=== PATIENT | male | born 1980 | race African-American/Black ===

== ENCOUNTER 2019-10-20 08:58 | Emergency (ER) | payer OTHER, SELFPAY ==
[2019-10-20 09:37] VITALS: BP 180/110; PULSE 70; RESP 16; TEMP 36.6; O2SAT 99
--- NOTE | 2019-10-20 09:48 | ED.MALEGU ---
HPI - Male Genitourinary General Chief complaint: Urogenital-Male Stated complaint: Skin rash Time Seen by Provider: 10/20/19 09:50 Source: patient and RN notes reviewed Mode of arrival: ambulatory Limitations: no limitations History of Present Illness HPI Narrative: 38-year-old male presents with concern for an ulcer on his penis. Reports noticing it 5 days ago. Denies penile discharge. Reports the lesion is painless. Reports he has been in a monogamous relationship for 10 years. Denies exposure to possible STDs. Patient does not currently have a primary care provider. He has a history of hypertension. He does not take his medicine for hypertension. MD Complaint: other (Penile lesion) Related Data Allergies Allergy/AdvReac Type Severity Reaction Status Date / Time No Known Allergies Allergy Unknown Verified 10/20/19 09:43 Review of Systems Review of Systems: Narrative: CONSTITUTIONAL: Denies malaise, chills, sweats, or fever. EYES: Denies visual changes GASTROINTESTINAL: Denies abdominal pain, nausea, vomiting, diarrhea GENITOURINARY: Denies dysuria or hematuria. Denies penile discharge. Reports penile ulcer. SKIN: Denies rash or itching. MUSCULOSKELETAL: Denies myalgia. NEUROLOGIC: Denies numbness, weakness, or headache. All systems reviewed & are unremarkable except as noted in HPI and below PMFSH Social History Social History Gender identity (if verbalized by the patient): Male Comments At time of signature, agree with nursing past medical, surgical, social and family history. There is no relevant family history pertinent to the presenting complaint Exam Narrative: Exam Narrative: GENERAL: Well-appearing, well-nourished, and in no acute distress. HEAD: Normocephalic EYES: PERRLA, conjunctivae clear ENT: Mucous membranes moist. NECK: Supple. CHEST: No respiratory distress. Speaks in full sentences. HEART: Regular rate and rhythm. SKIN: Warm, dry NEURO: Alert and oriented x3. PSYCH: Normal mood and affect : Penis: Yes circumcised and Yes ulceration Meatus: meatus normal Testes: Testes normal Male genitals images: 1. 2 small cankers noted. First canker is approximately 0.5 cm, the second canker is less than 0.25 cm. Both have pink wound beds, painless to palpation. Course Course Emergency Course: Patient is aware of diagnosis, understands and agrees to treatment plan. Anticipatory guidance given. Patient agrees to follow-up as directed and is aware of reasons to seek care at the emergency department. Portions of this record may have been created with voice recognition software Vital Signs Vital signs: Vital Signs Temperature 97.8 F 10/20/19 09:37 Pulse Rate 70 10/20/19 09:37 Respiratory Rate 16 10/20/19 09:37 Blood Pressure 180/110 H 10/20/19 09:37 Pulse Oximetry 99 10/20/19 09:37 Temperature 97.8 F 10/20/19 09:37 Pulse Rate 70 10/20/19 09:37 Respiratory Rate 16 10/20/19 09:37 Blood Pressure 180/110 H 10/20/19 09:37 Pulse Oximetry 99 10/20/19 09:37 Reviewed. Patient has history of hypertension MDM - Male Genitourinary MDM Narrative Medical decision making narrative: Exam findings show no acute concerns or changes; patient is non-toxic appearing and is in no distress. Patient is appropriate for outpatient treatment and follow-up. Differential Diagnosis Differential diagnosis: Likely urethritis, genital herpes simplex and other (STI) Critical Care Time Critical Care Time Critical Care Time: No Discharge Plan Discharge Clinical Impression: [place] Patient Disposition: Home, Self-Care Condition: Stable Additional Instructions: Please follow-up for comprehensive sexually transmitted infection testing with either a primary care doctor or the health department. Avoid unprotected sex until you have had comprehensive STI testing. Apply prescribed ointment twice daily and avoid touching the area to prevent bacterial skin infection. C
[2019-10-20 10:10] VITALS: BP 164/108
== END 2019-10-20 10:10 | disposition home or self-care (01) ==
PROVIDERS: Emergency Provider Nurse Practitioner
DX: A51.0 Primary genital syphilis (principal); I10 Essential (primary) hypertension
CPT/HCPCS: 99213; G0463

== ENCOUNTER 2022-10-28 11:07 | Emergency (ER) | payer OTHER, SELFPAY ==
[2022-10-28 11:19] VITALS: BP 204/134; PULSE 75; RESP 16; TEMP 36.7; O2SAT 99
--- NOTE | 2022-10-28 11:27 | ED.URI ---
HPI - URI/Sore Throat General Chief Complaint: Upper Respiratory Infection Stated Complaint: Sore Throat Time Seen by Provider: 10/28/22 11:27 Source: patient Mode of arrival: ambulatory Limitations: no limitations History of Present Illness HPI Narrative: 41-year-old male presents with complaint sore throat, fatigue, chills for 2-3 days. Denies nausea vomiting diarrhea. Patient is concerned as strep throat. Patient's blood pressure is elevated. He denies chest pain, shortness of breath. No headaches. Reports that he does not have a primary care physician. all systems reviewed and negative except as noted above. Related Data Allergies Allergy/AdvReac Type Severity Reaction Status Date / Time No Known Allergies Allergy Unknown Verified 10/28/22 11:17 Review of Systems Review of Systems: CONSTITUTIONAL: Denies fever. Reports chills, or sweats. EYES: Denies visual changes, redness, or discharge. ENT: Denies rhinorrhea, congestion . Reports sore throat. Deniesotalgia. CARDIOVASCULAR: Denies chest pain, palpitations, or edema. RESPIRATORY: Denies cough or dyspnea. GASTROINTESTINAL: Denies abdominal pain, nausea, vomiting, or diarrhea. GENITOURINARY: Denies dysuria or hematuria. SKIN: Denies rash or itching. MUSCULOSKELETAL: Denies back pain, joint pain, or myalgia. NEUROLOGIC: Denies headache, numbness, or weakness. PSYCHIATRIC: Denies anxiety or depression. All other systems reviewed are negative, except as documented in HPI. PMFSH Social History Social History Gender identity (if verbalized by the patient): Male Comments At time of signature, agree with nursing past medical, surgical, social and family history. There is no relevant family history pertinent to the presenting complaint. Exam Narrative: GENERAL: This is a well-nourished, well-developed patient, in no apparent distress. HEAD: normocephalic, atraumatic. EYES: PERRL. Sclera clear/white. Vision is grossly intact. EARS: External ears normal, auditory canals clear and without drainage, TMs normal without perforation. Hearing grossly intact. NOSE: External nose normal with no obvious nasal discharge, nares without redness, no rhinorrhea. THROAT: Mucous membranes moist, erythema and swelling posterior pharynx without exudates. NECK: Neck supple, non-tender without lymphadenopathy, masses or thyromegaly. CARDIOVASCULAR: Regular rate and rhythm without murmurs, gallops, or rubs. RESPIRATORY: Clear to auscultation. Breath sounds equal bilaterally. No wheezes, rales, or rhonchi. SKIN: warm, Dry, intact with no suspicious lesions or rash, good texture and turgor. NEURO: awake, alert, and oriented to person, place and time. There were no obvious focal neurologic abnormalities. EXTREMITIES: No joint tenderness, effusion, or edema noted. Course Course Level of Care: Express Care Visit Vital Signs Vital signs: Vital Signs Temperature 36.7 C 10/28/22 11:19 Pulse Rate 75 10/28/22 11:19 Respiratory Rate 16 10/28/22 11:19 Blood Pressure 204/134 H 10/28/22 11:19 Pulse Oximetry 99 10/28/22 11:19 Oxygen Delivery Room Air 10/28/22 11:19 Temperature 36.7 C 10/28/22 11:19 Pulse Rate 75 10/28/22 11:19 Respiratory Rate 16 10/28/22 11:19 Blood Pressure 204/134 H 10/28/22 11:19 Pulse Oximetry 99 10/28/22 11:19 Oxygen Delivery Room Air 10/28/22 11:19 Reviewed MDM - URI/Sore Throat MDM Narrative Medical decision making narrative: patient's blood pressure elevated. Would like him to go to ER for labs and further treatment. He is refusing transfer. He does not your care physician. due to patient being in the 200 systolic his medications today to treat blood pressure. referred to a primary care physician and recommend that he call today to schedule a follow-up appointment. Patient is aware of diagnosis, understands and agrees to treatment plan. Anticipatory guidance given. Patient agrees to follow-up as dir
== END 2022-10-28 11:58 | disposition left against medical advice (07) ==
PROVIDERS: Emergency Provider Nurse Practitioner Family
DX: J02.0 Streptococcal pharyngitis (principal); I10 Essential (primary) hypertension
CPT/HCPCS: 87880; 99213; G0463

== ENCOUNTER 2022-10-30 08:23 | Emergency (ER) | payer OTHER, SELFPAY ==
[2022-10-30 08:34] VITALS: PULSE 81; RESP 18; O2SAT 97
[2022-10-30 08:35] VITALS: BP 208/128; PULSE 70; RESP 18; TEMP 36.6; O2SAT 100
--- NOTE | 2022-10-30 08:55 | ED.GENADULT ---
HPI - General Adult General Chief complaint: Unspecified Stated complaint: not sleeping Time Seen by Provider: 10/30/22 08:25 History of Present Illness HPI narrative: Patient is a 41-year-old male who presents ER with difficulty sleeping. He was diagnosed with strep throat a couple days ago. He has been on antibiotics but when he lays back he feels like he is gagging and has trouble sleeping. He reports his sore throat has improved and he is having less discomfort with eating and drinking. He is tolerating oral secretions. He is not short of breath. Patient also recently diagnosed with hypertension. No chest pain or chest pressure. He has not taken his antihypertensives today. Related Data Allergies Allergy/AdvReac Type Severity Reaction Status Date / Time No Known Allergies Allergy Unknown Verified 10/28/22 11:17 Review of Systems Review of Systems: All systems reviewed & are unremarkable except as noted in HPI and below Constitutional: Constitutional: Denies chills and Denies fever(s) ENT: Denies hoarseness, Denies nasal congestion, Denies neck pain and Reports sore throat PMFSH Past Medical History Medical History (Updated 10/30/22 @ 17:32 by Checo Ellington MD) Hypertension Social History Social History Gender identity (if verbalized by the patient): Male Exam Narrative: GENERAL: Well-appearing, well-nourished, and in no acute distress. HEAD: Normocephalic, atraumatic. EYES: PERRL and EOMI. ENT: Mucous membranes moist. Mild pharyngeal erythema. Slight redness to tonsils as well without exudate. Uvula midline and edematous. 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 Tolerating oral secretions. No hot potato voice. NECK: Supple. Painless range of motion. CHEST: Clear to auscultation. No respiratory distress. HEART: Regular rate and rhythm. Normal peripheral pulses. EXTREMITIES: Normal range of motion. No edema. NEURO: Alert and oriented x3. PSYCH: Normal mood and affect. Course Course Emergency Course: Patient with elevated blood pressures in the 180s. He has not taken his amlodipine today. Discussed long-term benefits of antihypertensive therapy. Also encourage patient to establish care with PCP to manage his blood pressure. He is received Decadron for the uvulitis which should help. He also be sent home with some Tylenol with guarding liquid medication to help with pain and sleep. Vital Signs Vital signs: Vital Signs Pulse Rate 81 10/30/22 08:34 Respiratory Rate 18 10/30/22 08:34 Pulse Oximetry 97 10/30/22 08:34 Oxygen Delivery Room Air 10/30/22 08:34 Temperature 97.9 F 10/30/22 08:35 Pulse Rate 72 10/30/22 10:03 Respiratory Rate 16 10/30/22 10:03 Blood Pressure 205/129 H 10/30/22 10:03 Pulse Oximetry 97 10/30/22 10:03 Oxygen Delivery Room Air 10/30/22 08:34 Medical Decision Making Vital Signs Vital Signs: Vital Signs Pulse Rate 81 10/30/22 08:34 Respiratory Rate 18 10/30/22 08:34 Pulse Oximetry 97 10/30/22 08:34 Oxygen Delivery Room Air 10/30/22 08:34 Temperature 97.9 F 10/30/22 08:35 Pulse Rate 72 10/30/22 10:03 Respiratory Rate 16 10/30/22 10:03 Blood Pressure 205/129 H 10/30/22 10:03 Pulse Oximetry 97 10/30/22 10:03 Oxygen Delivery Room Air 10/30/22 08:34 Discharge Plan Discharge Clinical Impression: Uvulitis, Hypertension Patient Disposition: Home, Self-Care Condition: Stable Instructions: Chronic Hypertension (ED), Uvulitis (ED) Additional Instructions: Return the ER if you have chest pain or shortness of breath, you cannot keep down food or water, you have focal weakness in arm or leg, you have additional concerns. You need to establish care with a primary care doctor to help manage her hypertension long-term. Continue to take your amlodipine daily. Prescriptions: New acetaminophen-codeine 120-12 mg/5 mL solution 5 ml PO Q8H Qty: 118 0RF acetaminophen-codeine
--- NOTE | 2022-10-30 08:57 | PC.NURSE ---
Dr. Coates notified of BP. Pt has hx of elevated bp, pt taking amlodipine since Wednesday for BP
[2022-10-30 10:03] VITALS: BP 205/129; PULSE 72; RESP 16; O2SAT 97
== END 2022-10-30 10:06 | disposition home or self-care (01) ==
PROVIDERS: Emergency Provider Emergency Medicine
DX: K12.2 Cellulitis and abscess of mouth (principal); I10 Essential (primary) hypertension
CPT/HCPCS: 99283; J8540

== ENCOUNTER 2023-05-26 23:57 | Emergency (ER) | payer OTHER, SELFPAY ==
--- NOTE | ~2023-05-26 | US_ITS ---
EXAMINATION: US scrotum doppler DATE: 05/27/2023 02:50 INDICATION: Scrotal pain. TECHNIQUE: Grayscale and Doppler ultrasound images of the testes were obtained. COMPARISON: None. FINDINGS: The right testis measures 4.1 x 2.2 x 3.4 cm. The left testis measures 4.2 x 2.3 x 3.0 cm. There is normal vascular flow to both testes. The right epididymis is normal with normal vascular lc w. The left epididymis is normal with normal vascular flow. There are bilateral varicoceles. There ar e small bilateral hydroceles. IMPRESSION: 1. Small bilateral hydroceles. 2. Bilateral varicoceles. Reviewed, dictated and finalized at location E.
--- NOTE | ~2023-05-26 | CT_ITS ---
EXAMINATION: CT abdomen pelvis wo con DATE: 05/27/2023 01:32 INDICATION: Scrotal pain. TECHNIQUE: Computed tomography (CT) of the abdomen and pelvis was performed without intravenous contr ast. Automated exposure control and iterative reconstruction technique were employed. The dose-length product was 1111.70 mGy-cm. COMPARISON: None. FINDINGS: The visualized portions of the lung bases are clear without pneumonia or pleural effusion. The heart size is normal. No pericardial effusion. The liver, gallbladder, spleen, and pancreas are n ormal. There are masses in the adrenal glands measuring up to 16 mm on the left measuring low attenua tion, consistent with adenomas. The kidneys are normal. There is no urolithiasis. The prostate is mil dly enlarged. There are no dilated loops of bowel. The appendix is normal. There are no pathologicall y enlarged lymph nodes. There is no free intraperitoneal fluid. There is an umbilical hernia containi ng fat. There is mild lumbar spondylosis. IMPRESSION: 1. No urolithiasis. 2. Mildly enlarged prostate. Reviewed, dictated and finalized at location E.
[2023-05-27 00:03] VITALS: PULSE 96; RESP 16; TEMP 36.5; O2SAT 100
--- NOTE | 2023-05-27 01:18 | ED.MALEGU ---
HPI - Male Genitourinary General Chief complaint: Urogenital-Male Stated complaint: Bilateral testicle pain Time Seen by Provider: 05/27/23 01:03 Source: patient Limitations: no limitations History of Present Illness HPI Narrative: Patient is a 42-year-old male present to the emergency department complaining of scrotal pain. Patient states that the pain started gradually yesterday morning just after he was working out and has been aching ever since, is worse with eating or working out, notes that he took an Advil without any relief, denies radiation of the pain, notes that the pain is not in any 1 testicle over the other where there is seems to be right in the middle, denies any history this pain in the past. Patient admits to urinary frequency for a couple months. Patient denies dysuria, penile discharge, scrotal swelling, fever, vomiting, diarrhea, constipation, abdominal pain, chest pain, shortness of breath, recent injuries, recent illness. Patient has not noticed any bulging intermittently and denies history of inguinal hernia but does admit to history of an abdominal wall hernia. Patient admits to new sexual partners with intermittent use of protection and denies any history of sexual transmitted infections and is unaware if he has been exposed a sexual transmitted infections Related Data Allergies Allergy/AdvReac Type Severity Reaction Status Date / Time No Known Allergies Allergy Unknown Verified 10/28/22 11:17 Review of Systems Review of Systems: A 10 system review of systems was completed on the patient and is negative except for what is stated in the HPI. Nursing and ancillary documentation was reviewed. [facility] Past Medical History Medical History (Updated 05/28/23 @ 00:00 by Idania Dagee) Hypertension Social History Social History Gender identity (if verbalized by the patient): Male Comments At time of signature, I have reviewed and agree with nursing past medical, surgical, social and family history unless otherwise noted. Please see the nursing chart for further information. There is no relevant family history pertinent to the presenting complaint. Exam Narrative: CONST: No acute distress. Well nourished. HENMT: Head is normocephalic and atraumatic. Moist mucous membranes. No posterior oropharynx erythema. EYES: No conjunctival icterus, injection, or pallor. PERRL. NECK: No meningeal signs. RESP: Able to speak in full sentences. Normal respiratory effort. CTAB. CARDIO: Regular rate. Regular rhythm. 2+ DP and radial pulses bilaterally. GI: Nondistended. No tenderness to palpation. Soft. : No CVA tenderness to palpation. Digital rectal examination reveals mild tenderness to palpation of the prostate, no fluctuance, no palpable hemorrhoids. No palpable inguinal hernia. SKIN: No rashes or lesions noted on exposed skin. NEURO: Oriented x3. Moves all extremities. EXTREM: No pedal edema. PSYCH: Normal affect. : Penis: Yes normal penis, Yes circumcised, No ecchymosis, No edematous, No erythematous, No mass, No nodule, No priapism, No Localized penile swelling present, No ulceration and No Genital lesions present Meatus: meatus normal Scrotum: cremasteric reflex present, no ecchymosis, not edematous, not erythematous, testes descended bilaterally, no inguinal hernias and no masses Testes: testicular lie normal, epididymides normal, no epidiymal tenderness, no testicular mass, no testicular swelling, no testicular tenderness and normal testicular lie Course Vital Signs Vital signs: Vital Signs Temperature 97.7 F 05/27/23 00:03 Pulse Rate 96 05/27/23 00:03 Respiratory Rate 16 05/27/23 00:03 Pulse Oximetry 100 05/27/23 00:03 Oxygen Delivery Room Air 05/27/23 00:03 Temperature 97.7 F 05/27/23 00:03 Pulse Rate 96 05/27/23 00:03 Respiratory Rate 16 05/27/23 00:03 Pulse Oximetry 100 05/27/23 00:03 Oxygen Delivery Room Air 05/27/23 00:03 [facility] -
[2023-05-27] MEDS: ACETAMINOPHEN 500 MG TABLET 1000 MG PO (01:34)
[2023-05-27 02:18] LABS: Appearance Urine Cloudy (Clear); Bacteria Urine None Seen /hpf; Bilirubin Urine Negative (Negative); Blood Urine Negative (Negative); Color Urine Yellow (Yellow); Glucose Urine UA Negative (Negative); Ketones Urine Negative (Negative); Leukocyte Esterase Ur Negative LEU/UL (Negative); Nitrate Urine Negative (Negative); Non Pathogenic Casts 0-2; Protein Urine Trace mg/dL (Negative); RBC Urine 0-2 /hpf (0-2); Specific Grav Ur 1.015 (1.001-1.035); Squamous Epithelial Cell Urine None seen /hpf (Few); Urobilinogen Urine 0.2 mg/dL (<2.0); WBC Urine 0-5 /hpf
[2023-05-27 02:26] LABS: Add Urine Microscopic? YES
[2023-05-27 03:53] LABS: Chlamydia trachomatis NOT DETECTED (NOT DETECTE); Neisseria gonorrhoeae PCR NOT DETECTED (NOT DETECTE)
[2023-05-27] MEDS: DOXYCYCLINE HYCLATE 100 MG TABLET PO (04:30)
[2023-05-27] MEDS: cefTRIAXone 1 GM VIAL 0.5 GM IM (04:31)
== END 2023-05-27 04:39 | disposition home or self-care (01) ==
PROVIDERS: Emergency Provider Student in an Organized Health Care Education/Training Program
DX: N41.9 Inflammatory disease of prostate, unspecified (principal); I10 Essential (primary) hypertension; N40.0 Benign prostatic hyperplasia without lower urinary tract symptoms; I86.1 Scrotal varices; N43.3 Hydrocele, unspecified
CPT/HCPCS: 74176; 76870; 81001; 87491; 87591; 93976; 96372; 99284; A9270; J0696

== ENCOUNTER 2023-12-15 18:05 | Emergency (ER) | payer OTHER, SELFPAY ==
--- NOTE | ~2023-12-15 | XR_ITS ---
EXAMINATION: XR chest 2V DATE: 12/15/2023 18:29 INDICATION: Cough. Fatigue. TECHNIQUE: Frontal and lateral views of the chest were obtained. COMPARISON: CT abdomen and pelvis 05/27/2023 FINDINGS: There are airspace opacities in left upper lobe, consistent with pneumonia. No pleural effu deng or pneumothorax. The heart size is normal. IMPRESSION: 1. Left upper lobe pneumonia. Reviewed, dictated and finalized at location E.
[2023-12-15 18:06] VITALS: BP 219/123; PULSE 114; RESP 18; TEMP 36.7; O2SAT 97
[2023-12-15] MEDS: SODIUM CHLORIDE 0.9% IV 1,000 ML 999 ML IV CONT (18:42)
[2023-12-15] MEDS: ACETAMINOPHEN 500 MG TABLET 1000 MG PO (18:42)
--- NOTE | 2023-12-15 18:48 | ED.FEVER ---
HPI - Fever General Chief Complaint: Fever Stated Complaint: chills fever headache Time Seen by Provider: 12/15/23 18:14 History of Present Illness HPI Narrative: Patient is a 42-year-old male who presents ER with fevers and chills. Ongoing over last 2 days. Associated with cough that is nonproductive. Has some upper tightness to the chest. Reports people have been sick around him at work but is unsure if anybody has flu or COVID. No urinary symptoms. No abdominal pain. No exertional chest discomfort. Related Data Allergies Allergy/AdvReac Type Severity Reaction Status Date / Time No Known Allergies Allergy Unknown Verified 10/28/22 11:17 Review of Systems Review of Systems: All systems reviewed & are unremarkable except as noted in HPI and below Constitutional: Constitutional: Reports chills, Reports fatigue and Reports fever(s) ENT: Reports system reviewed and no additional complaints, except as documented Cardiovascular: Cardiovascular: Reports no additional cardiovascular complaints Respiratory: Respiratory: Denies chest congestion, Reports cough, Denies dyspnea and Denies wheezing Gastrointestinal: Gastrointestinal: Reports no additional gastrointestinal complaints Genitourinary: Genitourinary: Reports no additional male genitourinary complaints [facility] Past Medical History Medical History (Updated 12/15/23 @ 20:10 by Checo Ellington MD) Hypertension Social History Social History Gender identity (if verbalized by the patient): Male Exam Narrative: GENERAL: Well-appearing, well-nourished, and in no acute distress. HEAD: Normocephalic, atraumatic. ENT: Mucous membranes moist. NECK: Supple. CHEST: Clear to auscultation. No respiratory distress. HEART: Tachycardic and regular. Normal peripheral pulses. ABDOMEN: Soft, nontender, nondistended. EXTREMITIES: Normal range of motion. No edema. SKIN: Warm, dry, no rash. NEURO: Alert and oriented x3. PSYCH: Normal mood and affect. 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 Informed of results. Discharge home with antibiotics to treat pneumonia. No hypoxia. No white count. Patient with elevated blood pressures which are chronic for him. Vital Signs Vital signs: Vital Signs Temperature 98.1 F 12/15/23 18:06 Pulse Rate 114 H 12/15/23 18:06 Respiratory Rate 18 12/15/23 18:06 Blood Pressure 219/123 H 12/15/23 18:06 Pulse Oximetry 97 12/15/23 18:06 Oxygen Delivery Room Air 12/15/23 18:06 Temperature 98.1 F 12/15/23 18:06 Pulse Rate 114 H 12/15/23 18:06 Respiratory Rate 18 12/15/23 18:06 Blood Pressure 219/123 H 12/15/23 18:06 Pulse Oximetry 97 12/15/23 18:06 Oxygen Delivery Room Air 12/15/23 18:06 MDM - Fever Lab Data 12/15/23 18:49 12/15/23 18:50 Labs: Lab Results 12/15/23 12/15/23 Range/Units 18:49 18:50 WBC 6.7 (4.5-10.0) K/mm3 RBC 5.41 (4.6-6.20) M/mm3 Hgb 15.4 (14.0-18.0) g/dL Hct 44.8 (42.0-52.0) % MCV 82.8 (80-100) fl MCH 28.5 (26-34) pg MCHC 34.4 (32-36) g/dl RDW 13.2 (11.5-14.5) % Plt Count 118 L (150-375) k/mm3 MPV 12.1 H (7.4-10.4) fl Immature Gran % (Auto) 0.1 (0-0.5) % Neut % (Auto) 74.2 H (45.5-73.1) % Lymph % (Auto) 13.1 L (18.3-44.2) % [place] % (Auto) 12.0 H (2.6-8.5) % Eos % (Auto) 0.3 (0-4.4) % Baso % (Auto) 0.3 (0.2-1.2) % Lymph # (Auto) 0.88 L (0.9-3.2) K/mm3 [place] # (Auto) 0.8 H (0.1-0.6) K/mm3 Eos # (Auto) 0.0 (0-0.3) K/mm3 Baso # (Auto) 0.0 (0.0-0.1) K/mm3 Abs Immat Gran (auto) 0.01 (0.00-0.031) K/mm3 Absolute Neuts (auto) 5.0 (1.3-6.7) K/mm3 Absolute Nucleated RBC 0.000 (0.0-0.012) K/mm3 Nucleated RBC % 0.0 (0.0-0.2) % % Immature Plt Fraction 12.9 H (0.9-11.2) % Sodium 135 L (137-145) mmol/L Potassium 4.1 (3.4-5.0) mmol/L Chloride 102 (98-107) mmol/L Carbon Dioxide 27 (22-30) mmol/L
[2023-12-15 19:03] LABS: Basophils Percent Auto 0.3 % (0.2-1.2); Eosinophils Percent Auto 0.3 % (0-4.4); Hematocrit 44.8 % (42.0-52.0); Hemoglobin 15.4 g/dL (14.0-18.0); Immature Granulocyte Absolute 0.01 K/mm3 (0.00-0.031); Immature Granulocyte Percent A 0.1 % (0-0.5); Immature Platelet Fraction Pct 12.9 % (0.9-11.2); Lymphocytes Absolute Auto 0.88 K/mm3 (0.9-3.2); Lymphocytes Percent Auto 13.1 % (18.3-44.2); Mean Corpuscular HGB Conc 34.4 g/dl (32-36); Mean Corpuscular Hemoglobin 28.5 pg (26-34); Mean Corpuscular Volume 82.8 fl (80-100); Mean Platelet Volume 12.1 fl (7.4-10.4); Monocytes Absolute Auto 0.8 K/mm3 (0.1-0.6); Neutrophils Percent Auto 74.2 % (45.5-73.1); Platelet Count Result 118 k/mm3 (150-375); Red Blood Count 5.41 M/mm3 (4.6-6.20); Red Cell Distribution Width 13.2 % (11.5-14.5); White Blood Count 6.7 K/mm3 (4.5-10.0)
[2023-12-15 19:14] LABS: Lactic Acid Reflex 0.7 mmol/L (0.7-2.0)
[2023-12-15 19:14] LABS: Alanine Aminotransferase 26 U/L (6-50); Albumin Level 4.3 g/dL (3.5-5.1); Alkaline Phosphatase 66 U/L (38-126); Anion Gap 6 mmol/L (4-12); Aspartate Amino Transferase 29 U/L (17-59); Bilirubin,Total 0.6 mg/dL (0.2-1.3); Blood Urea Nitrogen 20 mg/dL (9-20); Calcium 8.8 mg/dL (8.4-10.2); Carbon Dioxide 27 mmol/L (22-30); Chloride 102 mmol/L (98-107); Estimated CRCL calculation 62 ml/min; Estimated Glomerular Filt Rate 58; Glucose 99 mg/dL (65-110); Potassium 4.1 mmol/L (3.4-5.0); Sodium 135 mmol/L (137-145)
[2023-12-15 19:42] LABS: Influenza A QL RT-PCR Negative (Negative); Influenza B QL RT-PCR Negative (Negative); RSV RNA, RT-PCR Negative (Negative); SARS-CoV-2 RNA PCR Negative (Negative)
[2023-12-15 20:15] VITALS: BP 192/129; PULSE 104; RESP 18; O2SAT 100
== END 2023-12-15 20:30 | disposition home or self-care (01) ==
PROVIDERS: Emergency Provider Emergency Medicine
DX: J18.9 Pneumonia, unspecified organism (principal); I10 Essential (primary) hypertension; Z20.822 Contact with and (suspected) exposure to COVID-19
CPT/HCPCS: 36415; 71046; 80053; 83605; 85025; 85055; 87637; 96360; 99283; A9270; J7030

== ENCOUNTER 2024-04-03 13:02 | Emergency (ER) | payer OTHER, SELFPAY ==
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
[2024-04-03 13:07] VITALS: BP 195/152; PULSE 86; RESP 14; TEMP 36.3; O2SAT 100
[2024-04-03 15:11] VITALS: BP 219/139; PULSE 69; O2SAT 99
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
== END 2024-04-03 16:00 | disposition home or self-care (01) ==
PROVIDERS: Emergency Provider Emergency Medicine
DX: S02.2XXA Fracture of nasal bones, initial encounter for closed fracture (principal); S02.31XA Fracture of orbital floor, right side, initial encounter for closed fracture; Y04.2XXA Assault by strike against or bumped into by another person, initial encounter; I10 Essential (primary) hypertension; Z91.148 Patient's other noncompliance with medication regimen for other reason
CPT/HCPCS: 70486; 99284

== ENCOUNTER 2024-05-01 06:49 | Emergency (ER) | payer OTHER, SELFPAY ==
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
[2024-05-01 06:50] VITALS: PULSE 105; RESP 18; TEMP 36.6; O2SAT 99
[2024-05-01 06:55] VITALS: BP 126/114; PULSE 95; RESP 18; O2SAT 96
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
[2024-05-01] MEDS: TETANUS,DIPHTHERIA,AC PERTUSSIS ADULT (0.5 ML) BOOSTRIX IM (07:25)
[2024-05-01 08:32] VITALS: BP 200/116; PULSE 94; RESP 18; O2SAT 100
== END 2024-05-01 08:34 | disposition home or self-care (01) ==
PROVIDERS: Emergency Provider Emergency Medicine
DX: S50.812A Abrasion of left forearm, initial encounter (principal); Z23 Encounter for immunization; I10 Essential (primary) hypertension; T46.5X6A Underdosing of other antihypertensive drugs, initial encounter; Z91.128 Patient's intentional underdosing of medication regimen for other reason; V49.40XA Driver injured in collision with unspecified motor vehicles in traffic accident, initial encounter
CPT/HCPCS: 73090; 90471; 90715; 99283

== ENCOUNTER 2024-05-20 14:47 | Outpatient (CLI) | payer OTHER, SELFPAY ==
--- NOTE | 2024-05-20 14:52 | ECG_ITS ---
Test Date: 2024-05-20 15:01:45 Measurements Intervals [place] Rate: 81 P: 62 [place]: 150 QRS: 26 QRSD: 93 T: 174 QT: 400 QTc: 464 Interpretive Statements SINUS RHYTHM POSSIBLE LEFT ATRIAL ENLARGEMENT [-0.1mV P WAVE IN V1/V2] LEFT VENTRICULAR HYPERTROPHY AND ST-T CHANGE [VOLTAGE CRITERIA PLUS ST/T ABNORMALITY] ABNORMAL ECG No previous ECG available for comparison Electronically Signed On 05-21-2024 08:54:46 CDT by Ramiro Robertson M.D.
== END 2024-05-20 14:48 | disposition home or self-care (01) ==
LOC: ANHCARD 14:48
PROVIDERS: Visit Provider Anesthesiology
DX: I10 Essential (primary) hypertension (principal); Z01.818 Encounter for other preprocedural examination; R94.31 Abnormal electrocardiogram [ECG] [EKG]
CPT/HCPCS: 93005

== ENCOUNTER 2024-05-22 01:39 | Day surgery (SDC) | payer OTHER, SELFPAY ==
[2024-05-17 09:49] VITALS: BMI 32.7
--- NOTE | 2024-05-17 09:55 | PC.NURSE ---
Report to the Outpatient Waiting Room, entrance under the green pavilion located off [facility], at time _0600_ on date _[id number]_. Planned Procedure Time: _0730_.? Time changes happen often and if your time is changed the preop area will call you the afternoon before. - You and your visitor will be asked to self-screen and do not enter if you have any COVID symptoms. Please call surgeon if you need to reschedule. - A mask is optional within the hospital at this time. Patients may have clear liquids (water, carbonated beverages, clear teas, apple juice) until 3 hours prior to surgery with a maximum of 20 ounces. - No food from midnight until time of surgery and no smoking Take only the following medications with a SIP of water on the morning of surgery____Amlodipine DO NOT STOP ANY OF YOUR OTHER PRESCRIPTION MEDICATIONS PRIOR TO SURGERY EXCEPT THE FOLLOWING Medications to discontinue per physician ___none Please no make-up, nail samoan, hairspray, perfume, deodorant, or body powder the day of surgery.? No jewelry (including any body piercings) or valuables the day of surgery, leave them at home.? Please take a shower or bath the night before, or the morning of, surgery with an antibacterial soap.? Wear comfortable, loose fitting clothing.? - Jewelry must be removed prior to entering the operating room.? Rings and piercings that are not removed may be cut off. - The hospital will not accept responsibility for valuables.? - Please leave all valuables, including medications, at home the day of surgery. If you are going home after surgery, a licensed driver education road instructor must drive you home.? - NO public transportation without another adult if you receive anesthesia. - We recommend that an adult stay with you for 24 hours following discharge. - We also recommend that you do not drive, make important decision, drink alcoholic beverages, or take any drugs that were not prescribed by your health care provider for at least 24 hours after your discharge time. Follow any additional instructions given to you from your surgeon. Telephone instructions given to __William___and asked if any additional questions and then verbalized understanding. Patient advised to call surgeon office or pre surgery nurse liaison [phone] if any additional questions.
[2024-05-22] VITALS (9 sets, daily range): BP systolic 141–220; BP diastolic 89–148; PULSE 58–93; RESP 16–20; TEMP 36.3; O2SAT 95–100
[2024-05-22] MEDS: ACETAMINOPHEN 500 MG TABLET 1000 MG PO (06:21)
[2024-05-22] MEDS: LACTATED RINGERS 1,000 ML 30 ML IV CONT (06:39)
--- NOTE | 2024-05-22 06:41 | WPDANESEPPF ---
Anes - Initial Pre Proc Eval Procedure: Operation Date: 05/22/24 07:30 Proposed Procedures p Septoplasty - Jai Love MD s Bilateral Turbinate Reduction - Jai Love MD Date/Time: 05/22/24 06:41 Surgeon: Jai Love MD Pre Op Diagnosis: Dev Septum, Turbinate Hypertrophy Patient Data Age: 43 Gender: M Height: 1.73 m Weight: 97.7 kg Allergies Allergy/AdvReac Type Severity Reaction Status Date / Time No Known Allergies Allergy Unknown Verified 05/22/24 06:05 Home Medications Medication Instructions Recorded Confirmed Type amlodipine 5 mg tablet (Norvasc) 5 mg PO DAILY #30 tabs 10/28/22 05/22/24 Rx Patient hx anesthesia problems: none Family hx anesthesia problems: none Results Review: All pre-operative results and documents have been reviewed as part of the pre-operative evaluation. [facility] Past Medical History Medical History (Updated 05/22/24 @ 06:42 by Sridhar Hameed MD) Hypertension Obesity Social History Social History Smoking status: Never smoker Alcohol intake: current Drinks per week: 5 Living arrangements: with family Gender identity (if verbalized by the patient): Male Spiritual care concerns: No Anes - Eval Final PreProcedure Day of Procedure 05/22/24 06:41 Patient weight: obese Heart: regular rate and rhythm Lungs: clear to auscultation Airway: Mallampati scale class II Neurological: alert and oriented Last oral intake: >/= 8 hours ASA classification: III Emergent: no Anesthetic plan: proceed Anesthesia type and monitoring: general ETT and standard monitoring Results Review: All pre-operative results and documents have been reviewed as part of the pre-operative evaluation. Informed Consent: The patient's anesthetic plan and its attendant risks and benefits were discussed with the patient/family/POA. Questions were solicited and answers provided to the satisfaction of the patient/family/POA.
[2024-05-22] MEDS: hydrALAZINE HCL 20 MG/ML VIAL 10 MG IV PUSH (06:51)
--- NOTE | 2024-05-22 07:05 | SUR.PREOP ---
0650- SPOKE WITH DR. ZAPIEN ABOUT PT ELEVATED BP- 220/148. DR. ZAPIEN ORDERED HYDRALAZINE 10 MG IVP NOW. 0705- PT BP STILL ELEVATED [id number]. DR. ZAPIEN UPDATED AND HE ORDERED LABETALOL IVP.
[2024-05-22] MEDS: LABETALOL HCL INJ 100 MG/20 ML VIAL 10 MG IV PUSH (07:08)
--- NOTE | 2024-05-22 07:10 | WPDHPUPDATE1 ---
History and Physical Update Update Date/Time: 05/22/24 07:10 History and Physical has been reviewed, including an updated exam of the patient. There are NO changes in the patient's condition. Risks, benefits, and alternatives have been discussed and questions answered. Patient agrees to proceed with procedure.
[2024-05-22] MEDS: ceFAZolin 2 GM/D5W 50 ML 2 GM/50 ML BAG IVPB (07:28)
[2024-05-22] MEDS: LIDO 1%/EPINEPHRINE 1:100,000 20 ML VIAL 10 ML INFILTRATE (07:55)
[2024-05-22] MEDS: OXYMETAZOLINE HCL 0.05% NAS 15 ML BTL (*BKC) 1 SPRAY NASAL (07:56)
[2024-05-22] MEDS: MUPIROCIN 2% OINT 22 GM TUBE 1 APPLIC EACH NARE (08:08)
--- NOTE | 2024-05-22 08:15 | P.OP_ITS ---
Procedure Note - Detailed Date of Procedure 05/22/24 Pre-op Diagnosis Dev Septum, Turbinate Hypertrophy Post-op Diagnosis Same Procedure Performed septoplasty, bilateral inferior turbinoplasty Surgeon Jai Love MD Anesthesia General Indications left deviated septum Findings left deviated septum Description of Procedure After obtaining informed consent and proper site verification the patient was brought to the operating room and placed on the operating table in the supine position. They were placed under general endotracheal anesthesia by the anesthesia provider. The patient was then draped in standard fashion for septoplasty and turbinoplasty. A timeout was performed and the correct patient and procedure were verified. The nasal cavity was injected with 1% lidocaine with 1-100,000 epinephrine and packed with afrin-soaked cottonoid pledgets. ? Attention was then directed to the nasal septum. A hemitransfixion incision was made in the left caudal septum and a mucoperichondrial flap was elevated in the usual fashion. The flap was elevated under endoscopic visualization and the remainder of the case was performed with endoscopic assistance. Using a D- knife, an incision was made through the cartilaginous septum with care to preserve the appropriate caudal and dorsal ?L-strut? of cartilage. The cartilage was then disarticulated from the bony-cartilaginous junction and the deviated cartilage was removed. Further deviated bone and cartilage was removed from the maxillary crest and posterior bony septum with care to avoid injury to the mucoperichondrial flap using a combination of dissection and Herbert- Leena forceps. Once this was completed, the hemitransfixion incision was closed using simple interrupted 4-0 chromic suture. A quilting stitch to reapproximate the mucoperichondrial flaps was then placed using 4-0 plain gut suture on a Jace needle. ? Next attention was directed to the turbinates. Using a 0? telescope and 2mm turbinate blade microdebrider, a stab incision was made in the anterior face of the turbinate and dissection was carried posterior to perform submucosal resection. Next the turbinate was outfractured using a blunt instrument. A similar procedure was then performed on the right-hand side without difficulty. Aguila splints covered in mupirocin ointment were placed in the nasal cavity and secured to the membranous septum using a 3-0 Prolene suture. ?The patient was awakened from general anesthesia extubated in the operating room, and transported to the recovery room in stable condition without complication. Estimated Blood Loss 10 Drains No Packing Yes (aguila splints) Pathology None sent Complications No immediate complications Condition Stable Disposition PACU
[2024-05-22] MEDS: fentaNYL CITRATE INJ (*CRX) 100 MCG/2 ML VIAL 25 MCG IV PUSH (09:19)
== END 2024-05-22 10:03 | disposition home or self-care (01) ==
PROVIDERS: Visit Provider Otolaryngology
PROC: (CPT 30520; principal; 2024-05-22 07:30)
PROC: (CPT 30520; 2024-05-22 07:30)
DX: J34.2 Deviated nasal septum (principal); J34.3 Hypertrophy of nasal turbinates; I10 Essential (primary) hypertension; E66.9 Obesity, unspecified; Z68.33 Body mass index [BMI] 33.0-33.9, adult
CPT/HCPCS: 30520; 30140; 93005; A9270; J0360; J0690; J1100; J1171; J2003; J2004; J2250; J2704; J3010; J7120

== ENCOUNTER 2025-05-11 15:14 | Emergency (ER) | payer BC, SELFPAY ==
[2025-05-11] VITALS (13 sets, daily range): BP systolic 155–191; BP diastolic 89–112; PULSE 82–103; RESP 18–24; TEMP 37.4; O2SAT 92–99
--- NOTE | ~2025-05-11 | XR_ITS ---
EXAMINATION: XR chest 1V portable COMPARISON: No comparisons available. HISTORY: Possible seizure; cva FINDINGS: The lungs are clear, no effusion. No pneumothorax. Heart is normal size. Mediastinal and hilar contours are within normal limits. Bony thorax no acute abnormality. Miscellaneous: None Impression: No acute cardiopulmonary abnormality. Reviewed, dictated and finalized at location P. Impression: No acute cardiopulmonary abnormality.
--- NOTE | ~2025-05-11 | XR_ITS ---
EXAMINATION: XR chest ET placement COMPARISON: No comparisons available. HISTORY: ET PLACEMENT FINDINGS: Mild pulmonary venous congestion. No pneumothorax. Mild cardiomegaly. Mediastinal and hilar contours are within normal limits. Bony thorax no acute abnormality. Miscellaneous: DANIS 3 cm of the magdiel, nasogastric tube below the diaphragm. Impression: Intubation as above. Mild CHF Reviewed, dictated and finalized at location P. Impression: Intubation as above. Mild CHF
--- NOTE | ~2025-05-11 | CT_ITS ---
EXAMINATION: CT brain wo con COMPARISON: None HISTORY: possible seizure TECHNIQUE: Axial images were obtained through the brain without IV contrast. CT scan performed using dose optimization techniques including the following automated exposure control; adjustment of mA and/or kV; use of iterative reconstruction technique. Automatic exposure control was used to reduce radiation dose. Permanent radiation dose record is archived to PACS. FINDINGS: There is a large focus of parenchymal hemorrhage within the left frontal lobe measuring 5.1 x 5 cm with surrounding vasogenic edema and extension into the left frontal horn and ventricular system. There is mass effect upon the left frontal horn with midline shift to the right measuring 2 mm.. Mastoid air cells unremarkable. Sinuses and orbits unremarkable. No acute fracture. No significant facial or scalp soft tissue swelling evident. No radiopaque foreign body is seen. Impression: Large focus of left parenchymal hemorrhage. Mass effect and midline shift detailed above. Results discussed with the referring clinician immediately Reviewed, dictated and finalized at location P. Impression: Large focus of left parenchymal hemorrhage. Mass effect and midline shift detai led above. Results discussed with the referring clinician immediately
--- NOTE | ~2025-05-11 | XR_ITS ---
EXAMINATION: XR abdomen gastric tube insert, 05/11/2025 16:30 CDT HISTORY: OG PLACEMENT COMPARISON: No comparisons available. Technique: 3 view. Findings: Bowel gas pattern unremarkable. No obstruction. No free air. No abnormal calcifications No acute osseous abnormality. Nasogastric tube terminates in the mid to distal stomach Impression: 1. No acute abnormality. Reviewed, dictated and finalized at location P. Impression: 1. No acute abnormality.
--- NOTE | 2025-05-11 15:28 | ECG_ITS ---
Test Date: 2025-05-11 15:25:39 Measurements Intervals [place] Rate: 105 P: 63 MO: 136 QRS: 23 QRSD: 94 T: 138 QT: 355 QTc: 470 Interpretive Statements SINUS TACHYCARDIA LEFT ATRIAL ENLARGEMENT LEFT VENTRICULAR HYPERTROPHY AND ST-T CHANGE BORDERLINE ECG Compared to ECG 05/20/2024 15:01:45 HEAERT RATE HAS INCREASED Electronically Signed On 05-11-2025 15:47:16 CDT by Harvey Mullins D.O.
--- NOTE | 2025-05-11 15:36 | PC.NURSE ---
Per Dr. Herron, CT head was ordered stat. CT was called by this nurse to make this pt a priority.
[2025-05-11 15:46] LABS: Hematocrit 47.4 % (42.0-52.0); Hemoglobin 15.9 g/dL (14.0-18.0); Immature Granulocyte Percent A 0.8 % (0-0.5); Lymphocytes Absolute Auto 0.75 K/mm3 (0.9-3.2); Mean Corpuscular HGB Conc 33.5 g/dl (32-36); Mean Corpuscular Hemoglobin 27.8 pg (26-34); Mean Corpuscular Volume 82.9 fl (80-100); Nucleated Red Blood Cells Absolute Auto 0.000 K/mm3 (0.0-0.012); Nucleated Red Blood Cells Perc 0.0 % (0.0-0.2); Platelet Count Result 181 k/mm3 (150-375); Red Blood Count 5.72 M/mm3 (4.6-6.20); White Blood Count 18.9 K/mm3 (4.5-10.0)
[2025-05-11] MEDS: levETIRAcetam 1500MG/NACL100ML 1,500 MG/100 ML BAG 400 MG IVPB (15:50)
[2025-05-11 15:58] LABS: INR 1.1; Partial Thromboplastin Time 24.0 Seconds (22.3-36.8); Prothrombin Time 14.5 Seconds (11.1-14.7)
--- NOTE | 2025-05-11 15:59 | ED_ITS ---
HPI - General Adult General Chief complaint: Seizure Stated complaint: alter mental status Time Seen by Provider: 05/11/25 15:22 History of Present Illness HPI narrative: This is a 44-year-old male history of hypertension not on any medications presenting for a seizure. The patient's girlfriend said that she was speaking to him and then she went downstairs. She then heard a loud noise from upstairs and went to find him shaking and foaming at the mouth. EMS was called and his seizure abated without intervention. The patient had tongue biting any postictal state. No history of seizures. Patient is somnolent at this time and is A&O x2(person/place). He is denying headaches, drug use, chest pain difficulty breathing abdominal pain. He is moving 4 / 4 extremities to command. Related Data Allergies Allergy/AdvReac Type Severity Reaction Status Date / Time No Known Allergies Allergy Unknown Verified 05/22/24 06:05 PMFSH Past Medical History Medical History (Updated 05/11/25 @ 16:37 by Easton Herron MD) Obesity Hypertension Social History Social History Smoking status: Never smoker Alcohol intake: current Drinks per week: 5 Living arrangements: with family Gender identity (if verbalized by the patient): Male Spiritual care concerns: No Exam 2 Narrative: APPEARANCE: No apparent distress. A&O to person and place Head: atraumatic, bite cronin to left tongue EYES: EOMI, 2 mm equal and reactive NOSE: Atraumatic NECK: Trachea midline RESPIRATORY: No increased rate of breathing clear to auscultation CARDIOVASCULAR: RRR no peripheral edema ABDOMINAL: Non-distended MUSCULOSKELETAl: No obvious deformities NEURO:Sonolent, alert. Moving 4/4 extremities to comman SKIN:: Warm, dry. Normal color PSYCHIATRIC: Normal affect Course Vital Signs Vital signs: Vital Signs Pulse Oximetry 97 05/11/25 15:19 Oxygen Delivery Room Air 05/11/25 15:19 Temperature 99.3 F 05/11/25 15:21 Pulse Rate 82 05/11/25 16:20 Respiratory Rate 24 H 05/11/25 16:14 Blood Pressure 176/95 H 05/11/25 16:20 Pulse Oximetry 94 05/11/25 16:14 Oxygen Delivery Room Air 05/11/25 15:21 Procedures Intubation Intubation #1: Intubation Date: 05/11/25 sedative: Etomidate Mg Given: 20 paralytic: Succinylcholine Mg Given: 100 Laryngoscope: Anne Tube Size (cm): 7.5 Method of Intubation: orotracheal Number of Attempts: 1 Tube Secured Depth (cm): 23 Tube Secured Location: lips Tube Placement Confirmation: visualized tube passing through cords, equal breath sounds bilaterally, no breath sounds over epigastrium and confirmation by capnometry Patient Tolerated Procedure: well Intubation Complications: none Medical Decision Making MDM Narrative Medical decision making narrative: -Course: 44-year-old male presenting with a first-time seizure. Patient is somnolent but arousable. A&O x2. Moving all extremities to command. He has bite cronin the left tongue. Stat CT was obtained which showed a large left frontal lobe intraparenchymal hemorrhage with 2 mm midline shift. Blood pressures were elevated and he was given multiple pushes of IV labetalol with goal of less than 140 SBP. [facility] transfer line was contacted and the patient will be transferred for neurological evaluation and treatment. NSX Dr. Lazar requested ED to ED t/f. Accepted by Dr. Harris in the ED. Nursing staff brought to my attention that his mental status was poor and getting worse. On re-evaluation the patient was more confused than when he arrived. He is somnolent requiring more stimulation. Patient will be intubated for airway protection. -DDX includes but is not limited to: Epileptic seizure, intracranial hemorrhage, drug use Vital Signs Vital Signs: Vital Signs Pulse Oximetry 97 05/11/25 15:19 Oxygen Delivery Room Air 05/11/25 15:19 Temperature 99.3 F 05/11/25 15:21 Pulse Rate 82 05/11/25 16:20 Respiratory Rate 24 H 05/11/25 16:14 Blood Pressure 176/95 H 05/11/25 16:20 Pulse Oximetry 94 05/11/25 16:14 Oxygen Delivery Room Air 05/11/25 15:21 Lab Data 05/11/25 15:35 05/11/25 15:35 Labs: Lab Results 05/11/25 05/11/25 05/11/25 Range/Units 15:27 15:34 15:35 WBC 18.9 H (4.5-10.0) K/mm3 RBC 5.72 (4.6-6.20) M/mm3 Hgb 15.9 (14.0-18.0) g/dL Hct 47.4 (42.0-52.0) % MCV 82.9 (80-100) fl MCH 27.8 (26-34) pg MCHC 33.5 (32-36) g/dl RDW 14.1 (11.5-14.5) % Plt Count 181 D (150-375) k/mm3 MPV 12.1 H (7.4-10.4) fl Immature Gran % (Auto) 0.8 H (0-0.5) % Neut % (Auto) 91.7 H (45.5-73.1) % Lymph % (Auto) 4.0 L (18.3-44.2) % [place] % (Auto) 3.4 (2.6-8.5) % Eos % (Auto) 0.0 (0-4.4) % Baso % (Auto) 0.1 L (0.2-1.2) % Lymph # (Auto) 0.75 L (0.9-3.2) K/mm3 [place] # (Auto) 0.7 H (0.1-0.6) K/mm3 Eos # (Auto) 0.0 (0-0.3) K/mm3 Baso # (Auto) 0.0 (0.0-0.1) K/mm3 Abs Immat Gran (auto) 0.16 H (0.00-0.031) K/mm3 Absolute Neuts (auto) 17.4 H (1.3-6.7) K/mm3 Absolute Nucleated RBC 0.000 (0.0-0.012) K/mm3 Nucleated RBC % 0.0 (0.0-0.2) % PT 14.5 (11.1-14.7) Seconds INR 1.1 APTT 24.0 (22.3-36.8) Seconds Sodium 139 (137-145) mmol/L Potassium 3.8 (3.4-5.0) mmol/L Chloride 103 (98-107) mmol/L Carbon Dioxide 11 L (22-30) mmol/L Anion Gap 25 H (4-12) mmol/L BUN 19 (9-20) mg/dL Creatinine 2.23 H (0.7-1.3) mg/dL Estim Creat Clear Calc Not Reportable Estimated GFR 32 L (59 - ) Glucose 139 H (65-110) mg/dL POC Capillary Glucose 134 H (65-105) mg/dl Lactic Acid 12.8 H* (0.7-2.0) mmol/L Calcium 9.0 (8.4-10.2) mg/dL Phosphorus 4.0 (2.5-4.5) mg/dL Magnesium 3.0 H (1.6-2.3) mg/dL Total Bilirubin 0.6 (0.2-1.3) mg/dL AST 53 (17-59) U/L ALT 57 H (6-50) U/L Alkaline Phosphatase 82 (38-126) U/L Total Protein 8.3 H (6.3-8.2) g/dL Albumin 4.7 (3.5-5.1) g/dL Urine Color (Yellow) Urine Appearance (Clear) Urine pH (5.0-9.0) Ur Specific [place] (1.001-1.035) Urine Protein (Negative) mg/dL Urine Glucose (UA) (Negative) mg/dL Urine Ketones (Negative) mg/dL Ur Blood (Man) (Negative) Urine Nitrate (Negative) Urine Bilirubin (Negative) Urine Urobilinogen (<2.0) mg/dL Add Ur Microanalysis Leukocyte Esterase Rfl (Negative) GABE/UL Urine RBC (0-2) /hpf Urine WBC (0-3) /hpf Ur Squamous Epith Cells (Few) /hpf Urine Bacteria /hpf Urine Casts Hyaline Casts (None) /lpf WBC Casts (None) /lpf Urine Opiates Screen (Negative) Urine Methadone Screen (Negative) Ur Barbiturates Screen (Negative) Ur Phencyclidine Scrn (Negative) Ur Amphetamine Screen (Negative) U Benzodiazepines Scrn (Negative) Urine Cocaine Screen (Negative) U Cannabinoids Screen (Negative) Ethyl Alcohol < 10 (<10) mg/dL 05/11/25 Range/Units 16:00 WBC (4.5-10.0) K/mm3 RBC (4.6-6.20) M/mm3 Hgb (14.0-18.0) g/dL Hct (42.0-52.0) % MCV (80-100) fl MCH (26-34) pg MCHC (32-36) g/dl RDW (11.5-14.5) % Plt Count (150-375) k/mm3 MPV (7.4-10.4) fl Immature Gran % (Auto) (0-0.5) % Neut % (Auto) (45.5-73.1) % Lymph % (Auto) (18.3-44.2) % [place] % (Auto) (2.6-8.5) % Eos % (Auto) (0-4.4) % Baso % (Auto) (0.2-1.2) % Lymph # (Auto) (0.9-3.2) K/mm3 [place] # (Auto) (0.1-0.6) K/mm3 Eos # (Auto) (0-0.3) K/mm3 Baso # (Auto) (0.0-0.1) K/mm3 Abs Immat Gran (auto) (0.00-0.031) K/mm3 Absolute Neuts (auto) (1.3-6.7) K/mm3 Absolute Nucleated RBC (0.0-0.012) K/mm3 Nucleated RBC % (0.0-0.2) % PT (11.1-14.7) Seconds INR APTT (22.3-36.8) Seconds Sodium (137-145) mmol/L Potassium (3.4-5.0) mmol/L Chloride (98-107) mmol/L Carbon Dioxide (22-30) mmol/L Anion Gap (4-12) mmol/L BUN (9-20) mg/dL Creatinine (0.7-1.3) mg/dL Estim Creat Clear Calc Estimated GFR (59 - ) Glucose (65-110) mg/dL POC Capillary Glucose (65-105) mg/dl Lactic Acid (0.7-2.0) mmol/L Calcium (8.4-10.2) mg/dL Phosphorus (2.5-4.5) mg/dL Magnesium (1.6-2.3) mg/dL Total Bilirubin (0.2-1.3) mg/dL AST (17-59) U/L ALT (6-50) U/L Alkaline Phosphatase (38-126) U/L Total Protein (6.3-8.2) g/dL Albumin (3.5-5.1) g/dL Urine Color Yellow (Yellow) Urine Appearance Cloudy H (Clear) Urine pH 5.0 (5.0-9.0) Ur Specific [place] 1.016 (1.001-1.035) Urine Protein 3+ H (Negative) mg/dL Urine Glucose (UA) Negative (Negative) mg/dL Urine Ketones Trace H (Negative) mg/dL Ur Blood (Man) 2+ H (Negative) Urine Nitrate Negative (Negative) Urine Bilirubin Negative (Negative) Urine Urobilinogen 0.2 (<2.0) mg/dL Add Ur Microanalysis Reviewed Leukocyte Esterase Rfl Negative (Negative) GABE/UL Urine RBC 3-5 H (0-2) /hpf Urine WBC 6-10 H (0-3) /hpf Ur Squamous Epith Cells None seen (Few) /hpf Urine Bacteria None seen /hpf Urine Casts 11-20 Hyaline Casts 0-2 (None) /lpf WBC Casts Present H (None) /lpf Urine Opiates Screen Negative (Negative) Urine Methadone Screen Negative (Negative) Ur Barbiturates Screen Negative (Negative) Ur Phencyclidine Scrn Negative (Negative) Ur Amphetamine Screen Negative (Negative) U Benzodiazepines Scrn Negative (Negative) Urine Cocaine Screen Negative (Negative) U Cannabinoids Screen Negative (Negative) Ethyl Alcohol (<10) mg/dL Critical Care Time Critical Care Time Critical Care Time: Yes Total Critical Care Time: 35 Discharge Plan Discharge Clinical Impression: Intraparenchymal hematoma of brain, Seizure Patient Disposition: Acute Care Hospital Condition: Guarded Prognosis Patient Language: Tamazight Prescriptions: No Action amlodipine [Norvasc] 5 mg tablet 5 mg PO DAILY Qty: 30 0RF hydrocodone-acetaminophen 5-325 mg tablet 1 tablet PO Q4H PRN (Reason: pain) Qty: 20 0RF Follow-up/Referrals: PHYSICIAN,WILDLIFE REMOVAL SPECIALIST [Primary Care Provider, Internal Medicine]
[2025-05-11 16:07] LABS: Albumin Level 4.7 g/dL (3.5-5.1); Alkaline Phosphatase 82 U/L (38-126); Anion Gap 25 mmol/L (4-12); Bilirubin,Total 0.6 mg/dL (0.2-1.3); Blood Urea Nitrogen 19 mg/dL (9-20); Calcium 9.0 mg/dL (8.4-10.2); Carbon Dioxide 11 mmol/L (22-30); Chloride 103 mmol/L (98-107); Estimated Glomerular Filt Rate 32; Glucose 139 mg/dL (65-110); Magnesium 3.0 mg/dL (1.6-2.3); Potassium 3.8 mmol/L (3.4-5.0); Sodium 139 mmol/L (137-145); Total Protein 8.3 g/dL (6.3-8.2)
[2025-05-11 16:14] LABS: Add Urine Microscopic? YES; Appearance Urine Cloudy (Clear); Glucose Urine UA Negative (Negative); Leukocyte Esterase Ur Negative LEU/UL (Negative); Need Manual Microscopic Reviewed; Nitrate Urine Negative (Negative); Specific Grav Ur 1.016 (1.001-1.035)
--- NOTE | 2025-05-11 16:16 | PC.NURSE ---
PTs girlfriend is at bedside. Note to ensure she is updated from transfer through his time at [place]. Jessika Monahan [phone]
[2025-05-11 16:19] LABS: Alanine Aminotransferase 57 U/L (6-50); Aspartate Amino Transferase 53 U/L (17-59)
--- NOTE | 2025-05-11 16:21 | PC.NURSE ---
Addendum entered by Sona Lilly RN 05/11/25 17:24: ETT is 7.5 Original Note: Dr. Herron notified of pts decreased LOC. Due to this, Dr. Herron decided intubation was necessary. 20 etomidate 100 succ 1 Dilaudid 5 versed Breathing fro protection of airway etomidate 1625 succ 1626 Breathing cessation and inubation attempt began 1627 stylet pulled at 1628 Dr. Herron confirmed bilateral breathsounds 1629 23 lip 7.3 ETT
[2025-05-11 16:26] LABS: Cannabinoid Screen Urine Negative (Negative)
[2025-05-11] MEDS: HYDROmorphone HCL INJ (*CRX) 1 MG/ML SYR (16:35)
[2025-05-11] MEDS: MIDAZOLAM HCL (*CRX) 2 MG/2 ML VIAL 6 MG (16:36)
[2025-05-11] MEDS: PROPOFOL IV EMULSION 100 ML 18.54 MG IV CONT (16:37)
--- NOTE | 2025-05-11 16:37 | PC.NURSE ---
Per Dr. Whittaker verbal order, 30 mcg/kg/min propofol has begun
[2025-05-11] MEDS: fentaNYL CITRATE INJ (*CRX) 100 MCG/2 ML VIAL IV PUSH (16:47)
--- NOTE | 2025-05-11 16:57 | PC.NURSE ---
Verbal order given by Dr. Herron to titrate propofol outside of order guidelines.
--- NOTE | 2025-05-11 17:00 | PC.NURSE ---
Bruna took over administration of propofol and nicardipine for pt transport to [place]. Infusions of propofol and nicardipine continued.
--- NOTE | 2025-05-11 17:00 | PC.NURSE ---
Pts girlfriend brought to [facility] to say goodbye to the pt prior to their flight. Pts girlfriend updated on pt status at this time.
--- NOTE | 2025-05-11 17:00 | PC.NURSE ---
Pt. belongings given to pt. girlfriend.
== END 2025-05-11 17:05 | disposition short-term general hospital (02) ==
PROVIDERS: Emergency Provider Emergency Medicine
DX: I61.1 Nontraumatic intracerebral hemorrhage in hemisphere, cortical (principal); R56.9 Unspecified convulsions; I10 Essential (primary) hypertension; Z79.899 Other long term (current) drug therapy; R00.0 Tachycardia, unspecified; R94.31 Abnormal electrocardiogram [ECG] [EKG]; I51.7 Cardiomegaly
CPT/HCPCS: 31500; 36415; 51702; 70450; 71045; 80053; 80307; 81001; 82077; 82948; 83605; 83735; 84100; 85025; 85610; 85730; 87086; 93005; 96365; 96367; 96375; 99285; J0330; J1171; J1953; J2250; J2404; J2704; J3010; L0140

== ENCOUNTER 2025-06-26 09:32 | Outpatient (CLI) | payer BC, SELFPAY ==
[2025-06-26 10:03] LABS: Hematocrit 38.4 % (42.0-52.0); Hemoglobin 13.1 g/dL (14.0-18.0); Immature Granulocyte Percent A 0.2 % (0-0.5); Lymphocytes Absolute Auto 1.31 K/mm3 (0.9-3.2); Mean Corpuscular HGB Conc 34.1 g/dl (32-36); Mean Corpuscular Hemoglobin 27.5 pg (26-34); Mean Corpuscular Volume 80.7 fl (80-100); Nucleated Red Blood Cells Absolute Auto 0.000 K/mm3 (0.0-0.012); Nucleated Red Blood Cells Perc 0.0 % (0.0-0.2); Platelet Count Result 182 k/mm3 (150-375); Red Blood Count 4.76 M/mm3 (4.6-6.20); White Blood Count 8.2 K/mm3 (4.5-10.0)
[2025-06-26 10:22] LABS: Alanine Aminotransferase 29 U/L (6-50); Albumin Level 4.3 g/dL (3.5-5.1); Alkaline Phosphatase 70 U/L (38-126); Anion Gap 6 mmol/L (4-12); Aspartate Amino Transferase 27 U/L (17-59); Bilirubin,Total 0.5 mg/dL (0.2-1.3); Blood Urea Nitrogen 22 mg/dL (9-20); Calcium 9.4 mg/dL (8.4-10.2); Carbon Dioxide 29 mmol/L (22-30); Chloride 101 mmol/L (98-107); Estimated Glomerular Filt Rate 39; Glucose 129 mg/dL (65-110); Potassium 3.2 mmol/L (3.4-5.0); Sodium 136 mmol/L (137-145); Total Protein 7.7 g/dL (6.3-8.2)
--- OUTSIDE RECORDS SUMMARY | 2025-06-26 10:29 | XMS_ITS | Encounter Summary ---
Author Organization [facility] Address [address] [place] [address] Phone Care Team Providers Care Fiber Glass Worker Name Role Phone Ari Johnson MD Primary Care Provider [phone]- [phone] Encounter Details Date Type Department Care Team (Late st Contact Info) Description 06/25/2025 Telephone [facility] Medicine Neurosurgery [address] [facility] Advanced Medicine 6th [place] [address] [place] [address] Kelsi Arita Social History Tobacco Use Types Packs/Day Years Used Date Smoking Tobacco: Never Smokeless Tobacco: Never Personal Safety Answer Date Recorded Have you ever been in or are you currently in a harmful physical or emotional relationship or is someone making you feel afraid or unsafe? 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 New Patient: Referring physician? ARI Leonard No ref. provider found Insurance: Payor: [employer] OOS / Plan: BLUE ACCESS OOS / Product Type: [employer] / Commercial or Medicare Did you send Letter to Ari Johnson MD for Insurance Auth: No Prior Approval needed Referred to: First Available: Diagnosis: Other Cranial Diagnosis Additional diagnosis not listed: Nontraumatic intracranial hemorrhage, unspecified (HCC) (I62.9) Are you planning or are you scheduled for brain surgery elsewhere in the near future? No Has the patient had brain surgery within the last 4 months? No Past Records Request: Referring Providers Office Visit Note scanned into media? Yes Radiology Request for recent imaging: In Epic: When was the most recent imaging? Date: 05/21/2025 What type of imaging was completed? MRI CT Past surgery completed within the last 10 years? No Cranial Symptoms: Blurred Vision: Yes Intermittent Loss of Sight: No Weakness on one side of body or a particular area: Yes Loss of bowel or bladder control: No Duration of symptoms: 4 month(s) Scheduling Determination: Appointment Scheduled Reason for visit: New Cranial Consult Date: 07/17/2025 Time: 10:00 am Location: [facility] ([facility]): [address] [place] [address], [address] ([address] Floor, [address]) Provider Appt Scheduled with: Dr. Joy Routed to Clinical Team: RUSTY Joy RING HOUSE CLERK * Telephone Encounter - Suzanne Morris - 06/25/2025 8:44 AM CST Referral scanned into chart RING HOUSE CLERK documented in this encounter Plan of Treatment Not on file documented as of this encounter Visit Diagnoses Not on filedocumented in this encounter Care Teams Fiber Glass Worker Relationship Specialty Start Date End Date Ari Johnson MD [address] [facility] [address] [place] [address] PCP - General Internal Medicine 06/25/25 documented as of this encounter
--- OUTSIDE RECORDS SUMMARY | 2025-06-26 10:29 | XMS_ITS | Encounter Summary ---
Author Organization [facility] Address [address] [place] [address] Phone Care Team Providers Care Overlock Sleeve Setter Name Role Phone Nataliia Johnson MD Primary Care Provider [phone]- [phone] Reason for Referral * MRI/CAT/PET Scan (Routine) - Pending Review Specialty Diagnoses / Procedures Referred By Contac t Referred To Contact Radiology Diagnoses Intraparenchymal hemorrhage of brain (HCC) Procedures MRI Brain W WO Contrast Nate Joy MD [address] [place] [address] Phone: tel: fax: [address] [address] Referral ID Status Reason Start Date Expiration Date V isits Requested Visits Authorized [id number] Pending Review 06/25/2025 07/25/2026 1 1 GROUND AIDE Encounter Details Date Type Department Care Team (Late st Contact Info) Description 06/25/2025 Orders Only [facility] Medicine Neurosurgery [address] [facility] Advanced Medicine 6th [place] [address] [place] [address] Maria De Jesus Lebron RN Intraparenchymal hemorrhage of brain (HCC) (Primary Dx) Social History Tobacco Use Types Packs/Day Years [...] on file 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 Gender Identity Not on file Sexual Orientation Not on file documented as of this encounter Plan of Treatment Scheduled Orders Name Type Priority Associated Diagnoses Orde r Schedule MRI Brain W WO Contrast Imaging Schedule Routine, Read Routine (OP Routine) Intraparenchymal hemorrhage of brain (HCC) Expected: 06/25/2025, Expires: 12/23/2026 documented as of this encounter Visit Diagnoses Diagnosis Intraparenchymal hemorrhage of brain (HCC)- Primary documented in this encounter Care Teams Overlock Sleeve Setter Relationship Specialty Start Date End Date Nataliia Johnson MD [address] [address] PCP - General Internal Medicine 06/25/25 documented as of this encounter
--- OUTSIDE RECORDS SUMMARY | 2025-06-26 10:30 | XMS_ITS | Clinical Summary ---
Author Organization [facility] Address [address] [place] [address] Care Team Providers Care Phlebotomist Prn Name Role Phone Nataliia Johnson MD Primary Care Provider [phone] Allergies No known active allergies Medications amLODIPine (NORVASC) 10 mg tablet Take 1 tablet (10 mg total) by mouth nightly 5 05/22/20 26 Active atorvastatin (LIPITOR) 40 mg tablet Take 1 tablet (40 mg total) by mouth daily 5 05/22/20 26 Active carvediloL (COREG) 25 mg tablet Take 1 tablet (25 mg total) by mouth 2 (two) times a day with meals 5 05/22/20 26 Active levETIRAcetam (KEPPRA) 750 mg tablet Take 1 tablet (750 mg total) by mouth 2 (two) times a day 5 05/22/20 26 Active losartan (COZAAR) 100 mg tablet Take 1 tablet (100 mg total) by mouth daily 5 05/23/20 26 Active hydroCHLOROthi azide 12.5 mg tablet Take 1 tablet/capsule (12.5 mg total) by mouth daily 30 tablet/capsu le 11 5 05/23/20 26 Active hydrALAZINE (APRESOLINE) 25 mg tablet Take 1 tablet (25 mg total) by mouth 3 (three) times a day 10/30/202 5 Active aspirin 81 mg enteric coated tabletIndicati ons:Cerebrovas cular disease,Ischem ic stroke (HCC) Take 1 tablet (81 mg total) by mouth daily Start on 05/25/2025 and take from then on 90 tablet 3 5 Active Additional Information Patient not taking.Reported on 06/11/2025 aspirin 81 mg enteric coated tablet Take 1 tablet (81 mg total) by mouth daily Start on 05/25/2025 and take from then on 5 06/11/20 25 Discontin ued(Reord er) Active Problems Problem Noted Date Diagnosed Date Nontraumatic intracranial hemorrhage, unspecifie d 06/25/2025 Intraparenchymal hemorrhage of brain 05/11/2025 Encounters Date Type Department Care Team Description 06/25/2025 Orders Only [facility] Neurosurgery [address] [facility] 6th [place] [address] [place] [phone] Maria De Jesus Lebron RN Intraparenchymal hemorrhage of brain (HCC) (Primary Dx) 06/25/2025 Telephone [facility] Neurosurgery [address] [facility] 6th [place] [address] [place] [address] Kelsi Arita 06/14/2025 1:00 PM SEARCH ENGINE MARKETING SPECIALIST Therapy [facility] OP Occup Therapy [address] [place] [id number] Antonia Galvan, MARI Other sequelae of nontraumatic intracerebral hemorrhage; Nontraumatic cortical hemorrhage of cerebral hemisphere, unspecified laterality (HCC); Convulsions, unspecified convulsion type (HCC); Obesity, class 1 06/12/2025 8:00 AM SEARCH ENGINE MARKETING SPECIALIST Therapy [facility] OP Speech Therapy [address] [place] [id number] Latoya Thomson, EZEKIEL Nontraumatic cortical hemorrhage of cerebral hemisphere, unspecified laterality (HCC) (Primary Dx); Other sequelae of nontraumatic intracerebral hemorrhage; Convulsions, unspecified convulsion type (HCC); Obesity, class 1 06/12/2025 Plan of Care Documentation [facility] OP Speech Therapy [address] [place] [phone] 06/11/2025 1:40 PM SEARCH ENGINE MARKETING SPECIALIST Office Visit [facility] Medicine Stroke [address] [phone] Roman Hernandez NP Cerebrovascular disease (Primary Dx); Ischemic stroke (HCC); Intraparenchymal hemorrhage of brain (HCC); At risk for obstructive sleep apnea; Essential hypertension; Hospital discharge follow-up 06/05/2025 1:45 PM SEARCH ENGINE MARKETING SPECIALIST Therapy [facility] OP Physical Therapy [address] [place] [phone] Nancy Shipley PT Other sequelae of nontraumatic intracerebral hemorrhage; Nontraumatic cortical hemorrhage of cerebral hemisphere, unspecified laterality (HCC); Convulsions, unspecified convulsion type (HCC); Obesity, class 1 06/05/2025 Plan of Care Documentation [facility] OP Physical Therapy [address] [place] [phone] 06/01/2025 8:30 AM CDT Clinical Support [facility] Neuro Psychology [address] [facility] [address] [place] [address] Aline Bains, PhD Cerebrovascular disease 05/25/2025 Orders Only [facility] [phone] Unknown, Notinfile 05/17/2025 8:45 AM CDT Ancillary Procedure [facility] Medicine Vascular Lab IP [address] [facility] [address] [place] [phone] 05/11/2025 5:45 PM CDT - 05/23/2025 3:00 PM CDT Hospital Encounter [address] [phone] Isaiah Trujillo MD Kircher, MD Lachelle Wakefield, MD Yoanna Lamb Baback, MD Dai, Xing, MD Intraparenchymal hemorrhage of brain (HCC) (Primary Dx); Seizure (HCC); Hypertension, unspecified type; Palpitations Discharge Disposition: Discharge to an IP Rehab facility from Last 3 Months Immunizations Immunization Administration Dates Next Due Influenza, Unspecified 04/02/2025 Social History Tobacco Use Types Packs/Day Years Used Date Smoking Tobacco: Never Smokeless Tobacco: Never Tobacco Cessation:Counseling Given: Not Answered Personal Safety Answer Date Recorded Have you ever been in or are you currently in a harmful physical or emotional relationship or is someone making you feel afraid or unsafe? Patient unable to answer 05/11/2025 Sex and Gender Information Value Date Recorded Sex Assigned at Not on file Legal Sex Male 9:00 PM SEARCH ENGINE MARKETING SPECIALIST Gender Identity Not on file Sexual Orientation Not on file Last Filed Vital Signs Vital Sign Reading Time Taken Comments Blood Pressure 132/88 06/11/2025 1:16 PM SEARCH ENGINE MARKETING SPECIALIST Pulse 58 06/11/2025 1:16 PM SEARCH ENGINE MARKETING SPECIALIST Temperature 36 C (96.8 F) 05/23/2025 11:30 AM CDT Respiratory Rate 18 05/23/2025 11:30 AM CDT Oxygen Saturation 94% 05/23/2025 11:30 AM CDT Inhaled Oxygen Concentration - - Weight 94.5 kg (208 lb 6.4 oz) 06/11/2025 1:16 P M SEARCH ENGINE MARKETING SPECIALIST Height 185.4 cm (6' 1) 06/11/2025 1:16 PM SEARCH ENGINE MARKETING SPECIALIST Body Mass Index 27.5 06/11/2025 1:16 PM SEARCH ENGINE MARKETING SPECIALIST Plan of Treatment Health Maintenance Due Date Last Done Comments Depression Screening 1982 Prostate Cancer Screening-PSA 1982 Varicella Vaccines (1 of 2 - 13+ 2-dose series) 12/16/1995 Hepatitis B Screening 2000 Regular Well Visit/Exam 18-64 2000 HPV Vaccines (1 - 3-dose SCD M series) 2009 DTaP/Tdap/Td Vaccine (2 - Td or Tdap) 05/01/2034 05/01/2024 Influenza Vaccine Completed 04/02/2025, 05/16/2019, 06/30/2018 Hepatitis C Screening Completed 05/14/2025 Pneumococcal vaccine <65 Aged Out No longer eligible based on patient's age to complete this topic Procedures Procedure Name Priority Date/Time Associated Diagnosis Comments EGFR Routine Gen Lab 06/01/2025 5:18 AM CDT CS BASIC METABOLIC PANEL Routine Gen Lab 06/01/2025 5:18 AM CDT CS GLUCOSE Routine Gen Lab 06/01/2025 5:18 AM CDT CBC WITHOUT DIFFERENTIAL Routine Gen Lab 06/01/2025 5:18 AM CDT EGFR Routine Gen Lab 05/29/2025 6:17 AM CDT THYROID FUNCTION CASCADE Routine Gen Lab 05/29/2025 6:17 AM CDT COMPREHENSIVE METABOLIC PANEL WITHOUT GLUCOSE (OUTREACH) Routine Gen Lab 05/29/2025 6:17 AM CDT CS GLUCOSE Routine Gen Lab 05/29/2025 6:17 AM CDT CBC WITHOUT DIFFERENTIAL Routine Gen Lab 05/29/2025 6:17 AM CDT EGFR Routine Gen Lab 05/25/2025 7:11 AM CDT COMPREHENSIVE METABOLIC PANEL WITHOUT GLUCOSE (OUTREACH) Routine Gen Lab 05/25/2025 7:11 AM CDT CS GLUCOSE Routine Gen Lab 05/25/2025 7:11 AM CDT CBC WITHOUT DIFFERENTIAL Routine Gen Lab 05/25/2025 7:11 AM CDT MCT - MOBILE CARDIAC TELEMETRY EVENT MONITOR Pending Discharge 05/23/2025 12:48 PM CDT Palpitations EGFR Routine 05/22/2025 8:39 PM CDT DIFFERENTIAL AUTO Routine 05/22/2025 8:3 9 PM CDT CBC WITH AUTO DIFFERENTIAL Routine 05/22/2025 8:39 PM CDT COMPREHENSIVE METABOLIC PANEL Routine 05/22/2025 8:39 PM CDT US RENAL COMPLETE W COMPLETE RENAL DOPPLER (C) IP Routine 05/22/2025 11:35 AM CDT EGFR Routine 05/21/2025 9:52 PM CDT DIFFERENTIAL AUTO Routine 05/21/2025 9:5 2 PM CDT CBC WITH AUTO DIFFERENTIAL Routine 05/21/2025 9:52 PM CDT COMPREHENSIVE METABOLIC PANEL Routine 05/21/2025 9:52 PM CDT PEP THERAPY Routine 05/21/2025 9:00 PM CDT MRI BRAIN W WO CONTRAST IP Routine 05/21/2025 8:24 PM CDT EGFR Routine 05/20/2025 9:39 PM CDT DIFFERENTIAL AUTO Routine 05/20/2025 9:3 9 PM CDT CBC WITH AUTO DIFFERENTIAL Routine 05/20/2025 9:39 PM CDT COMPREHENSIVE METABOLIC PANEL Routine 05/20/2025 9:39 PM CDT PEP THERAPY Routine 05/20/2025 3:00 PM CDT PEP THERAPY Routine 05/20/2025 9:00 AM CDT EGFR Timed 05/19/2025 8:09 PM CDT PHOSPHORUS Timed 05/19/2025 8:09 PM CDT MAGNESIUM Timed 05/19/2025 8:09 PM CDT CBC WITHOUT DIFFERENTIAL Routine 05/19/2025 8:09 PM CDT COMPREHENSIVE METABOLIC PANEL Timed 05/19/2025 8:09 PM CDT PEP THERAPY Routine 05/19/2025 5:33 PM CDT PEP THERAPY Routine 05/19/2025 5:33 PM CDT PEP THERAPY Routine 05/19/2025 5:[address] HEAD WO CONTRAST IP Routine 05/19/2025 5 :17 AM CDT EGFR Routine 05/18/2025 9:54 PM CDT CBC WITHOUT DIFFERENTIAL Routine 05/18/2025 9:54 PM CDT BASIC METABOLIC PANEL Routine 05/18/2025 9:54 PM CDT EGFR Routine 05/17/2025 10:26 PM CDT BASIC METABOLIC PANEL Routine 05/17/2025 10:26 PM CDT URINALYSIS AND REFLEX TO MICROSCOPIC AND CULTURE STAT 05/17/2025 3:17 PM CDT US VEIN DUPLEX UPPER EXTREMITY BILATERAL COMPLETE ED Urgent/IP Urgent 05/17/2025 12:[address] HEAD STEALTH WO CONTRAST ED Urgent/IP Urgent 05/17/2025 12:16 PM CDT BLOOD GAS, ARTERIAL STAT 05/17/2025 1 1:26 AM CDT TRICHOMONAS VAGINALIS PCR STAT 05/17/2025 4:36 AM CDT BLOOD CULTURE STAT 05/17/2025 4:36 AM CDT BLOOD CULTURE STAT 05/17/2025 4:36 AM CDT EGFR Routine 05/17/2025 12:02 AM CDT CBC WITHOUT DIFFERENTIAL Routine 05/17/2025 12:02 AM CDT BASIC METABOLIC PANEL Routine 05/17/2025 12:02 AM CDT CONTINUOUS VIDEO EEG Routine 05/16/2025 8:49 AM CDT EGFR Routine 05/15/2025 8:33 PM CDT CBC WITHOUT DIFFERENTIAL Routine 05/15/2025 8:33 PM CDT BASIC METABOLIC PANEL Routine 05/15/2025 8:[address] HEAD STEALTH WO CONTRAST Critical/Life-Th reatening 05/15/2025 10:02 AM CDT HAPTOGLOBIN Routine 05/15/2025 8:44 AM CDT LACTATE DEHYDROGENASE Routine 05/15/2025 8:44 AM CDT POTASSIUM, WHOLE BLOOD STAT 05/14/2025 11:29 PM CDT EGFR Routine 05/14/2025 8:47 PM CDT DIFFERENTIAL AUTO Routine 05/14/2025 8:4 7 PM CDT PHOSPHORUS Routine 05/14/2025 8:47 PM CDT MAGNESIUM Routine 05/14/2025 8:47 PM CDT BASIC METABOLIC PANEL Routine 05/14/2025 8:47 PM CDT CBC WITH AUTO DIFFERENTIAL Routine 05/14/2025 8:47 PM CDT POTASSIUM, WHOLE BLOOD STAT 05/14/2025 10:40 AM CDT HEPATITIS PANEL, ACUTE Routine 05/14/2025 10:40 AM CDT HIV 1/2 ANTIBODY PLUS P24 ANTIGEN Routine 05/14/2025 10:[address] HEAD WO CONTRAST Critical/Life-Th reatening 05/14/2025 10:13 AM CDT TRANSTHORACIC ECHO (TTE) COMPLETE W DOPPLER/CF W CONTRAST Routine 05/14/2025 9:00 AM CDT XR CHEST 1 VIEW ED Urgent/IP Urgent 05/14/2025 8:40 AM CDT ID ARTL CATHJ/CANNULJ MNTR/TRANSFUSION SPX PRQ Routine 05/14/2025 7:22 AM CDT BLOOD CULTURE STAT 05/14/2025 6:49 AM CDT BLOOD CULTURE STAT 05/14/2025 6:49 AM CDT POCT GLUCOSE DEVICE Routine 05/14/2025 6 :11 AM CDT ECG 12-LEAD Routine 05/14/2025 2:29 AM CDT POCT GLUCOSE DEVICE Routine 05/13/2025 1 1:58 PM CDT EGFR Routine 05/13/2025 7:39 PM CDT DIFFERENTIAL AUTO Routine 05/13/2025 7:3 9 PM CDT LIPID PANEL Routine 05/13/2025 7:39 PM CDT PHOSPHORUS Routine 05/13/2025 7:39 PM CDT MAGNESIUM Routine 05/13/2025 7:39 PM CDT BASIC METABOLIC PANEL Routine 05/13/2025 7:39 PM CDT CBC WITH AUTO DIFFERENTIAL Routine 05/13/2025 7:39 PM CDT POCT GLUCOSE DEVICE Routine 05/13/2025 5 :41 PM CDT POCT GLUCOSE DEVICE Routine 05/13/2025 1 2:12 PM CDT RENIN ACTIVITY STAT 05/13/2025 10:18 AM CDT LIPID PANEL STAT 05/13/2025 10:18 AM CDT HEMOGLOBIN A1C Routine 05/13/2025 10:18 AM CDT ALDOSTERONE Routine 05/13/2025 8:27 AM CDT POCT GLUCOSE DEVICE Routine 05/13/2025 6 :12 AM CDT POCT GLUCOSE DEVICE Routine 05/13/2025 1 2:17 AM CDT PROTEIN / CREATININE RATIO, URINE, RANDOM Routine 05/12/2025 11:18 PM CDT RPR STAT 05/12/2025 11:18 PM CDT EGFR Timed 05/12/2025 7:45 PM CDT DIFFERENTIAL AUTO Routine 05/12/2025 7:4 5 PM CDT PHOSPHORUS Routine 05/12/2025 7:45 PM CDT MAGNESIUM Routine 05/12/2025 7:45 PM CDT TRIGLYCERIDES Timed 05/12/2025 7:45 PM CDT COMPREHENSIVE METABOLIC PANEL Timed 05/12/2025 7:45 PM CDT CBC WITH AUTO DIFFERENTIAL Routine 05/12/2025 7:45 PM CDT POCT GLUCOSE DEVICE Routine 05/12/2025 5 :48 PM CDT N. GONORRHOEAE/C. TRACHOMATIS AMPLIFICATION Routine 05/12/2025 4:25 PM CDT TROPONIN I HIGH-SENSITIVITY 2-HOUR Timed 05/12/2025 1:24 PM CDT POCT GLUCOSE DEVICE Routine 05/12/2025 1 1:54 AM CDT ECG 12-LEAD STAT 05/12/2025 11:33 AM CDT CRITICAL RESULT CALLBACK CARDIO CHEM STAT 05/12/2025 11:27 AM CDT TROPONIN I HIGH-SENSITIVITY SERIES (BASELINE, 2HR, 4HR, 6HR) STAT 05/12/2025 11:27 AM CDT EXTUBATION Routine 05/12/2025 7:35 AM CDT LACTATE STAT 05/12/2025 6:25 AM CDT POCT GLUCOSE DEVICE Routine 05/12/2025 6 :14 AM CDT CREATINE KINASE (CK), TOTAL STAT 05/12/2025 4:40 AM CDT TRIGLYCERIDES STAT 05/12/2025 4:[address] HEAD STEALTH WO CONTRAST Timed 05/12/2025 4:23 AM CDT SODIUM, URINE, RANDOM Routine 05/12/2025 2:18 AM CDT POCT GLUCOSE DEVICE Routine 05/12/2025 1 2:48 AM CDT XR ABDOMEN AP 1 VIEW IP Routine 05/11/2025 11:37 PM CDT XR CHEST 1 VIEW IP Routine 05/11/2025 11:31 PM CDT FENTANYL CONFIRMATION, MS URINE STAT 05/11/2025 11:01 PM CDT BENZODIAZEPINE CONFIRMATION BY MS STAT 05/11/2025 11:01 PM CDT APTT STAT 05/11/2025 11:01 PM CDT PROTIME-INR STAT 05/11/2025 11:01 PM CDT BLOOD GAS, ARTERIAL STAT 05/11/2025 1 1:01 PM CDT TROPONIN I HIGH-SENSITIVITY Routine 05/11/2025 11:01 PM CDT DRUGS OF ABUSE SCREEN, URINE WITH REFLEX CONFIRMATION STAT 05/11/2025 11:01 PM CDT EGFR STAT 05/11/2025 10:56 PM CDT URINALYSIS, MICROSCOPIC ONLY STAT 05/11/2025 10:56 PM CDT DIFFERENTIAL AUTO STAT 05/11/2025 10: 56 PM CDT TYPE AND SCREEN STAT 05/11/2025 10:56 PM CDT CBC WITH AUTO DIFFERENTIAL STAT 05/11/2025 10:56 PM CDT PHOSPHORUS STAT 05/11/2025 10:56 PM CDT MAGNESIUM STAT 05/11/2025 10:56 PM CDT COMPREHENSIVE METABOLIC PANEL STAT 05/11/2025 10:56 PM CDT B CHECK SAMPLE STAT 05/11/2025 10:56 PM CDT URINE CULTURE STAT 05/11/2025 10:56 PM CDT URINALYSIS AND REFLEX TO MICROSCOPIC AND CULTURE STAT 05/11/2025 10:56 PM CDT ECG 12-LEAD Routine 05/11/2025 10:43 PM CDT POCT GLUCOSE DEVICE Routine 05/11/2025 1 0:28 PM CDT URINALYSIS, MICROSCOPIC ONLY STAT 05/11/2025 9:55 PM CDT URINE CULTURE STAT 05/11/2025 9:55 PM CDT URINALYSIS AND REFLEX TO MICROSCOPIC AND CULTURE STAT 05/11/2025 9:55 PM CDT ID CRITICAL CARE ILL/INJURED PATIENT INIT 30-74 MIN Routine 05/11/2025 9:00 PM CDT CTA HEAD NECK W WO CONTRAST Critical/Life-Th reatening 05/11/2025 8:22 PM CDT EGFR STAT 05/11/2025 6:26 PM CDT DIFFERENTIAL AUTO STAT 05/11/2025 6:2 6 PM CDT BLOOD GAS, ARTERIAL STAT 05/11/2025 6 :26 PM CDT TYPE AND SCREEN STAT 05/11/2025 6:26 PM CDT HEPATIC FUNCTION PANEL STAT 05/11/2025 6:26 PM CDT BASIC METABOLIC PANEL STAT 05/11/2025 6:26 PM CDT CBC WITH AUTO DIFFERENTIAL STAT 05/11/2025 6:26 PM CDT POCUS CVC 05/11/2025 6:[address] OUTSIDE CONSULT Routine 05/11/2025 5:56 PM CDT from Last 3 Months Results * CS GLUCOSE (06/01/2025 5:18 AM CDT) Glucose 84 70 - 199 mg/dL [facility] Comment: Interpretive Data Fasting glucose >/= 126 mg/dl is diagnostic for diabetes. Fasting is defined as no caloric intake for at least 8 hours. Fasting glucose between 100 mg/dl to 125 mg/dl is diagnostic of prediabetes. In a patient with classic symptoms of hyperglycemia or hyperglycemic crisis, a random glucose >/= 200 mg/dl is diagnostic for diabetes. In the absence of unequivocal hyperglycemia, results should be confirmed by repeat testing. The classification and Diagnosis of Diabetes Diabetes Care 2021; 46: S19-S40. Current interpretive data was last revised 2022. Testing performed by: [facility], [address] [place]., [address] Blood 06/01/2025 5:18 AM CDT 06/01/2025 7:46 AM CDT us Notinfile Unknown LAB BLOOD ORDERABLES Final Res ult [facility] [address] [facility] Department [place] [address] * (ABNORMAL) CS BASIC METABOLIC PANEL (06/01/2025 5:18 AM CDT) Sodium 140 135 - 145 mmol/L [facility] Comment:Testing performed by : [facility], [address] [place]., [address] Potassium, pl 3.5 3.3 - 4.9 mmol/L [facility] Comment:Testing performed by : [facility], [address] [place] [address]., [address] Chloride 99 97 - 110 mmol/L [facility] Comment:Testing performed by : [facility], [address] [place] [address]., [address] CO2 23 22 - 32 mmol/L [facility] Comment:Testing performed by : [facility], [address] [place]., [address] Anion gap 18(H) 2 - 15 mmol/L [facility] Comment:Testing performed by : [facility], [address] [place]., [address] BUN 32(H) 6 - 25 mg/dL [facility] Comment:Testing performed by : [facility], [address] [place]., [address] Creatinine 2.02(H) 0.80 - 1.30 mg/dL [facility] Comment:Testing performed by : [facility], [address] [place]., [address] Calcium 9.5 8.5 - 10.3 mg/dL [facility] Comment:Testing performed by : [facility], [address] [place]., [address] Blood 06/01/2025 5:18 AM CDT 06/01/2025 7:46 AM CDT us Notinfile Unknown LAB BLOOD ORDERABLES Final Res ult [facility] [address] [facility] Department [place] [address] * (ABNORMAL) eGFR (06/01/2025 5:18 AM CDT) eGFR 41(L) >=60 mL/min/1. [address] [facility] Comment: Interpretive Data Reference Interval Normal >/= 90 mL/min/1.73m2 Mildly decreased* 60 - 89 mL/min/1.73m2 Mildly to moderately decreased 45 - 59 mL/min/1.73m2 Moderately to severely decreased 30 - 44 mL/min/1.73m2 Severely decreased 15 - 29 mL/min/1.73m2 Kidney Failure < 15 mL/min/1.73m2 *Relative to young adult level Estimated glomerular filtration rate is determined by the 2020 CKD-EPI equation recommended by the National Kidney Foundation (A Unifying Approach to GFR Estimation: Recommendations of the NKF-ASK Task Force on Reassessing the Inclusion of Race in Diagnosing Kidney Disease, JASN 2020). The CKD-EPI equation should not be used for patients with unstable renal function and has not been validated in children and those over 70. Current interpretive data was last reviewed 2021. Testing performed by: [facility], [address] [place]., [address] Blood 06/01/2025 5:18 AM CDT 06/01/2025 7:52 AM CDT us Notinfile Unknown LAB BLOOD ORDERABLES Final Res ult [facility] [address] [facility] Department [place] [address] * (ABNORMAL) CBC without differential (06/01/2025 5:18 AM CDT) WBC 7.86 3.80 - 9.90 K/cumm [facility] Comment:Testing performed by : [facility], [address] [place] [address], [address] Hgb 12.7(L) 13.0 - 17.5 g/dL [facility] Comment:Testing performed by : [facility], [address] [place] [address], [address] Hct 38.0(L) 38.9 - 50.3 % [facility] Comment:Testing performed by : [facility], [address] [facility], [address] Plt 270 150 - 400 K/cumm [facility] Comment:Testing performed by : [facility], [address] [facility], [address] MPV 12.3 9.1 - 12.3 fL [facility] Comment:Testing performed by : [facility], [address] [place] [address], [address] RBC 4.55 4.30 - 5.80 M/cumm [facility] Comment:Testing performed by : [facility], [address] [place] [address], [address] MCV 83.5 81.3 - 96.4 fL [facility] Comment:Testing performed by : [facility], [address] [place]., [address] MCH 27.9 27.1 - 33.3 pg [facility] Comment:Testing performed by : [facility], [address] [place]., [address] MCHC 33.4 32.3 - 35.7 g/dL [facility] Comment:Testing performed by : [facility], [address] [place]., [address] RDW CV 13.5 11.1 - 14.9 % [facility] Comment:Testing performed by : [facility], [address] [facility], [address] RDW SD 41.0 35.7 - 48.1 fL [facility] Comment:Testing performed by : [facility], [address] [facility], [address] NRBC abs 0.00 0.00 - 0.01 K/cumm [facility] Comment:Testing performed by : [facility], [address] [place]., [address] Blood 06/01/2025 5:18 AM CDT 06/01/2025 7:46 AM CDT us Notinfile Unknown LAB BLOOD ORDERABLES Final Res ult [facility] [address] [facility] Department [place] [address] * CS GLUCOSE (05/29/2025 6:17 AM CDT) [facility] Glucose 87 70 - 199 mg/dL [facility] Comment: Interpretive Data Fasting glucose >/= 126 mg/dl is diagnostic for diabetes. Fasting is defined as no caloric intake for at least 8 hours. Fasting glucose between 100 mg/dl to 125 mg/dl is diagnostic of prediabetes. In a patient with classic symptoms of hyperglycemia or hyperglycemic crisis, a random glucose >/= 200 mg/dl is diagnostic for diabetes. In the absence of unequivocal hyperglycemia, results should be confirmed by repeat testing. The classification and Diagnosis of Diabetes Diabetes Care 202; 46: S19-S40. Current interpretive data was last revised 2022. Testing performed by: [facility], [address] [place]., [address] Blood 05/29/2025 6:17 AM CDT 05/29/2025 7:42 AM CDT us Notinfile Unknown LAB BLOOD ORDERABLES Final Res ult [facility] [address] [facility] Department [place] [address] * (ABNORMAL) eGFR (05/29/2025 6:17 AM CDT) eGFR 44(L) >=60 mL/min/1. 73 m2 [facility] Comment: Interpretive Data Reference Interval Normal >/= 90 mL/min/1.73m2 Mildly decreased* 60 - 89 mL/min/1.73m2 Mildly to moderately decreased 45 - 59 mL/min/1.73m2 Moderately to severely decreased 30 - 44 mL/min/1.73m2 Severely decreased 15 - 29 mL/min/1.73m2 Kidney Failure < 15 mL/min/1.73m2 *Relative to young adult level Estimated glomerular filtration rate is determined by the 2020 CKD-EPI equation recommended by the National Kidney Foundation (A Unifying Approach to GFR Estimation: Recommendations of the NKF-ASK Task Force on Reassessing the Inclusion of Race in Diagnosing Kidney Disease, JASN 2020). The CKD-EPI equation should not be used for patients with unstable renal function and has not been validated in children and those over 70. Current interpretive data was last reviewed 2021. Testing performed by: [facility], [address] [facility], [place]., [address] Blood 05/29/2025 6:17 AM CDT 05/29/2025 7:52 AM CDT us Notinfile Unknown LAB BLOOD ORDERABLES Final Res ult Performing Organization Address City/[facility] Co de Phone Number [facility] [address] [facility] Department [place] [address] * Thyroid Function Porter (05/29/2025 6:17 AM CDT) TSH 0.77 0.30 - 4.20 mcIUnit/mL [facility] Comment:Testing performed by : [facility], [address] [place]., [address] Blood 05/29/2025 6:17 AM CDT 05/29/2025 7:42 AM CDT us Notinfile Unknown LAB BLOOD ORDERABLES Final Res ult Performing Organization Address [facility] Co de Phone Number [facility] [address] [facility] Department of [place] [address] * (ABNORMAL) Comprehensive metabolic panel, without glucose (Outreach) (05/29/2025 6:17 AM CDT) Sodium 140 135 - 145 mmol/L [facility] Comment:Testing performed by : [facility], [address] [place]., [address] Potassium, pl 3.7 3.3 - 4.9 mmol/L [facility] Comment:Testing performed by : [facility], [address] [place] [address] Chloride 101 97 - 110 mmol/L [facility] Comment:Testing performed by : [facility], [address] [place]., [address] CO2 26 22 - 32 mmol/L [facility] Comment:Testing performed by : [facility], [address] [place] [address] Anion gap 13 2 - 15 mmol/L [facility] Comment:Testing performed by : [facility], [address] [place] [address] BUN 25 6 - 25 mg/dL [facility] Comment:Testing performed by : [facility], [address] [facility], [address] Creatinine 1.92(H) 0.80 - 1.30 mg/dL [facility] Comment:Testing performed by : [facility], [address] [facility], [address] Calcium 10.1 8.5 - 10.3 mg/dL [facility] Comment:Testing performed by : [facility], [address] [facility], [address] Protein, pl 7.8 6.5 - 8.5 g/dL [facility] Comment:Testing performed by : [facility], [address] [facility], [address] Albumin 3.9 3.5 - 5.0 g/dL [facility] Comment:Testing performed by : [facility], [address] [facility], [address] Bilirubin, total 0.4 0.1 - 1.2 mg/dL [facility] Comment:Testing performed by : [facility], [address] [facility], [address] Alk phos 96 40 - 130 Units/L [facility] Comment:Testing performed by : [facility], [address] [place] [address], [id number] AST 29 10 - 50 Units/L [facility] Comment:Testing performed by : [facility], [address] [place] [address], [id number] ALT 58(H) 7 - 55 Units/L [facility] Comment:Testing performed by : [facility], [address] [facility], [address] Blood 05/29/2025 6:17 AM CDT 05/29/2025 7:42 AM CDT us Notinfile Unknown LAB BLOOD ORDERABLES Final Res ult [facility] One [facility] Department [place] [address] * (ABNORMAL) CBC without differential (05/29/2025 6:17 AM CDT) WBC 10.19(H) 3.80 - 9.90 K/cumm [facility] Comment:Testing performed by : [facility], [address] [place] [address], [address] Hgb 12.8(L) 13.0 - 17.5 g/dL [facility] Comment:Testing performed by : [facility], [address] [facility], [address] Hct 38.8(L) 38.9 - 50.3 % [facility] Comment:Testing performed by : [facility], [address] [facility], [address] Plt 289 150 - 400 K/cumm [facility] Comment:Testing performed by : [facility], [address] [place] [address], [address] MPV 12.0 9.1 - 12.3 fL [facility] Comment:Testing performed by : [facility], [address] [facility], [address] RBC 4.68 4.30 - 5.80 M/cumm [facility] Comment:Testing performed by : [facility], [address] [place] [address], [address] MCV 82.9 81.3 - 96.4 fL [facility] Comment:Testing performed by : [facility], [address] [place] [address], [address] MCH 27.4 27.1 - 33.3 pg [facility] Comment:Testing performed by : [facility], [address] [place] [address], [address] MCHC 33.0 32.3 - 35.7 g/dL [facility] Comment:Testing performed by : [facility], [address] [place] [address] RDW CV 13.5 11.1 - 14.9 % [facility] Comment:Testing performed by : [facility], [address] [place] [address] RDW SD 40.5 35.7 - 48.1 fL [facility] Comment:Testing performed by : [facility], [address] [place]., [address] NRBC abs 0.00 0.00 - 0.01 K/cumm [facility] Comment:Testing performed by : [facility], [address] [place] [address] Blood 05/29/2025 6:17 AM CDT 05/29/2025 7:41 AM CDT us Notinfile Unknown LAB BLOOD ORDERABLES Final Res ult [facility] One [facility] Department [place] [address] * CS GLUCOSE (05/25/2025 7:11 AM CDT) [facility] Glucose 78 70 - 199 mg/dL [facility] Comment: Interpretive Data Fasting glucose >/= 126 mg/dl is diagnostic for diabetes. Fasting is defined as no caloric intake for at least 8 hours. Fasting glucose between 100 mg/dl to 125 mg/dl is diagnostic of prediabetes. In a patient with classic symptoms of hyperglycemia or hyperglycemic crisis, a random glucose >/= 200 mg/dl is diagnostic for diabetes. In the absence of unequivocal hyperglycemia, results should be confirmed by repeat testing. The classification and Diagnosis of Diabetes Diabetes Care 202; 46: S19-S40. Current interpretive data was last revised 2022. Testing performed by: [facility], [address] [place] [address] Blood 05/25/2025 7:11 AM CDT 05/25/2025 10:59 AM CDT us Notinfile Unknown LAB BLOOD ORDERABLES Final Res ult Performing Organization Address City/[facility]/ZIP Co de Phone Number [facility] Department [place] [address] * (ABNORMAL) eGFR (05/25/2025 7:11 AM CDT) [facility] eGFR 41(L) >=60 mL/min/1. [address] [facility] Comment: Interpretive Data Reference Interval Normal >/= 90 mL/min/1.73m2 Mildly decreased* 60 - 89 mL/min/1.73m2 Mildly to moderately decreased 45 - 59 mL/min/1.73m2 Moderately to severely decreased 30 - 44 mL/min/1.73m2 Severely decreased 15 - 29 mL/min/1.73m2 Kidney Failure < 15 mL/min/1.73m2 *Relative to young adult level Estimated glomerular filtration rate is determined by the 2020 CKD-EPI equation recommended by the National Kidney Foundation (A Unifying Approach to GFR Estimation: Recommendations of the NKF-ASK Task Force on Reassessing the Inclusion of Race in Diagnosing Kidney Disease, JASN 2020). The CKD-EPI equation should not be used for patients with unstable renal function and has not been validated in children and those over 70. Current interpretive data was last reviewed 2021. Testing performed by: [facility], 1 [facility], [place]., [address] Blood 05/25/2025 7:11 AM CDT 05/25/2025 11:04 AM CDT us Notinfile Unknown LAB BLOOD ORDERABLES Final Res ult [facility] Department [place] [address] * (ABNORMAL) Comprehensive metabolic panel, without glucose (Outreach) (05/25/2025 7:11 AM CDT) Sodium 138 135 - 145 mmol/L [facility] Comment:Testing performed by : [facility], [address] [facility], [address] Potassium, pl 3.3 3.3 - 4.9 mmol/L [facility] Comment:Testing performed by : [facility], [address] [facility], [address] Chloride 103 97 - 110 mmol/L [facility] Comment:Testing performed by : [facility], [address] [facility], [address] CO2 23 22 - 32 mmol/L [facility] Comment:Testing performed by : [facility], [address] [facility], [address] Anion gap 12 2 - 15 mmol/L [facility] Comment:Testing performed by : [facility], [address] [facility], [address] BUN 17 6 - 25 mg/dL [facility] Comment:Testing performed by : [facility], [address] [facility], [address] Creatinine 2.02(H) 0.80 - 1.30 mg/dL [facility] Comment:Testing performed by : [facility], [address] [facility], [address] Calcium 9.0 8.5 - 10.3 mg/dL [facility] Comment:Testing performed by : [facility], [address] [facility], [address] Protein, pl 7.2 6.5 - 8.5 g/dL [facility] Comment:Testing performed by : [facility], [address] [facility], [address] Albumin 3.8 3.5 - 5.0 g/dL [facility] Comment:Testing performed by : [facility], [address] [facility], [address] Bilirubin, total 0.4 0.1 - 1.2 mg/dL [facility] Comment:Testing performed by : [facility], [address] [facility], [address] Alk phos 86 40 - 130 Units/L [facility] Comment:Testing performed by : [facility], [address] [facility], [address] AST 34 10 - 50 Units/L [facility] Comment:Testing performed by : [facility], [address] [facility], [address] ALT 82(H) 7 - 55 Units/L [facility] Comment:Testing performed by : [facility], [address] [facility], [address] Blood 05/25/2025 7:11 AM CDT 05/25/2025 10:59 AM CDT us Notinfile Unknown LAB BLOOD ORDERABLES Final Res ult [facility] One [facility] Department [place] [address] * (ABNORMAL) CBC without differential (05/25/2025 7:11 AM CDT) WBC 10.57(H) 3.80 - 9.90 K/cumm [facility] Comment:Testing performed by : [facility], [address] [place] [address] Hgb 11.3(L) 13.0 - 17.5 g/dL [facility] Comment:Testing performed by : [facility], [address] [facility], [address] Hct 34.6(L) 38.9 - 50.3 % [facility] Comment:Testing performed by : [facility], [address] [facility], [address] Plt 247 150 - 400 K/cumm [facility] Comment:Testing performed by : [facility], [address] [facility], [address] MPV 12.0 9.1 - 12.3 fL [facility] Comment:Testing performed by : [facility], [address] [facility], [address] RBC 4.15(L) 4.30 - 5.80 M/cumm [facility] Comment:Testing performed by : [facility], [address] [facility], [address] MCV 83.4 81.3 - 96.4 fL [facility] Comment:Testing performed by : [facility], [address] [facility], [address] MCH 27.2 27.1 - 33.3 pg [facility] Comment:Testing performed by : [facility], [address] [facility], [address] MCHC 32.7 32.3 - 35.7 g/dL [facility] Comment:Testing performed by : [facility], [address] [facility], [address] RDW CV 13.7 11.1 - 14.9 % [facility] Comment:Testing performed by : [facility], [address] [facility], [address] RDW SD 41.1 35.7 - 48.1 fL [facility] Comment:Testing performed by : [facility], [address] [facility], [address] NRBC abs 0.00 0.00 - 0.01 K/cumm [facility] Comment:Testing performed by : [facility], [address] [facility], [address] Blood 05/25/2025 7:11 AM CDT 05/25/2025 10:59 AM CDT us Notinfile Unknown LAB BLOOD ORDERABLES Final Res ult [facility] One [facility] Department [place] [address] * MCT Mobile Cardiac Telemetry Event Monitor (05/23/2025 12:48 PM CDT) Anatomical Region Laterality Modality Electrocardiogra phy 05/23/2025 12:5 1 PM CDT Narrative 06/11/2025 4:25 PM SEARCH ENGINE MARKETING SPECIALIST [facility] Cardiac [place] [address] [place] [address] CARDIAC EVENT MONITOR REPORT Patient Name: BRADLEY BROWNING : 1980 (44y 5m) Sex: M Study Date: 05/23/2025 12:51:24 PM Ht(Inch): Wt(Lb): BSA: Tech: Location: [id number] Order Provider: MATT BRUNSON BMI: Ref Provider: MATT BRUNSON PROCEDURES: Event Report: MCT MOBILE CARDIAC TELEMETRY EVENT MONITOR [[id number]]. Enrollment Period: 2025-05-23 00:00:00 through 2025-06-08 00:00:00. Monitor Number: BodyGuardian Mini PLUS Lite - MCT. Patient Instructions: Tech educated patient and applied the monitor and patient given monitor in office during appointment, patient understands directions and use of equipment. Location: [facility]. INDICATIONS: R00.2 Palpitations. FINDINGS: Event Data: Min Rate: 48 BPM Min Rate Timestamp: 2025-05-27 17:39:00 Max Rate: 99 BPM Max Rate Timestamp: 2025-05-30 17:52:00 Mean Rate: 70 BPM SIGNIFICANT PAUSES: 0 >3 sec SUMMARY: The patient's monitoring period was 05/23/2025 - 06/08/2025. Baseline sample showed Sinus Rhythm with a heart rate of 71.9 bpm. There were 0 critical, 0 serious, and 1 stable events that occurred. CONCLUSIONS: 1. The patient's monitoring period was 05/23/2025 - 06/08/2025. Baseline sample showed Sinus Rhythm with a heart rate of 71.9 bpm. There were 0 critical, 0 serious, and 1 stable events that occurred. 2. I have reviewed the PDF and all the ECG strips. I agree with the interpretations as detailed in the report. 3. The PDF can be found in the [facility] Patient chart. Please go to the Cardiology tab, click on the holter or event exam. Scroll to bottom where the ORDER-LEVEL Documents reside and click the blue link to the pdf. Electronically Signed By: Santiago Robles Jr., M.D. 06/11/2025 3:07:55 PM SEARCH ENGINE MARKETING SPECIALIST Procedure Note Santiago Robles MD PhD - 06/11/2025 [facility] [place] [address] CARDIAC EVENT MONITOR REPORT Patient Name: BRADLEY BROWNING : 1980 (44y 5m) Sex: M Study Date: 05/23/2025 12:51:24 PM Ht(Inch): Wt(Lb): BSA: Tech: Location: [id number] Order Provider: MATT BRUNSON BMI: Ref Provider: MATT BRUNSON PROCEDURES: Event Report: MCT MOBILE CARDIAC TELEMETRY EVENT MONITOR [[id number]]. Enrollment Period: 2025-05-23 00:00:00 through 2025-06-08 00:00:00. Monitor Number: BodyGuardian Mini PLUS Lite - MCT. Patient Instructions: Tech educated patient and applied the monitor andpatient given monitor in office during appointment, patient understands directions anduse of equipment. Location: [facility]. INDICATIONS: R00.2 Palpitations. FINDINGS: Event Data: Min Rate: 48 BPM Min Rate Timestamp: 2025-05-27 17:39:00 Max Rate: 99 BPM Max Rate Timestamp: 2025-05-30 17:52:00 Mean Rate: 70 BPM SIGNIFICANT PAUSES: 0 >3 sec SUMMARY: The patient's monitoring period was 05/23/2025 - 06/08/2025.Baseline sample showed Sinus Rhythm with a heart rate of 71.9 bpm. There were 0 critical,0 serious, and 1 stable events that occurred. CONCLUSIONS: 1. The patient's monitoring period was 05/23/2025 - 06/08/2025. Baselinesample showed Sinus Rhythm with a heart rate of 71.9 bpm. There were 0 critical, 0serious, and 1 stable events that occurred. 2. I have reviewed the PDF and all the ECG strips. I agree with theinterpretations as detailed in the report. 3. The PDF can be found in the Epic Patient chart. Please go to theCardiology tab, click on the holter or event exam. Scroll to bottom where the ORDER-LEVELDocuments reside and click the blue link to the pdf. Electronically Signed By: Santiago Robles Jr., M.D. 06/11/2025 3:07:55 PM SEARCH ENGINE MARKETING SPECIALIST us Matt Brunson MD CV CARDIAC SERVICES PROCEDURES F inal Result * (ABNORMAL) eGFR (05/22/2025 8:39 PM CDT) eGFR 39(L) >=60 mL/min/1. 73 m2 Comment: Interpretive Data Reference Interval Normal >/= 90 mL/min/1.73m2 Mildly decreased* 60 - 89 mL/min/1.73m2 Mildly to moderately decreased 45 - 59 mL/min/1.73m2 Moderately to severely decreased 30 - 44 mL/min/1.73m2 Severely decreased 15 - 29 mL/min/1.73m2 Kidney Failure < 15 mL/min/1.73m2 *Relative to young adult level Estimated glomerular filtration rate is determined by the 2020 CKD-EPI equation recommended by the National Kidney Foundation (A Unifying Approach to GFR Estimation: Recommendations of the NKF-ASK Task Force on Reassessing the Inclusion of Race in Diagnosing Kidney Disease, JASN 2020). The CKD-EPI equation should not be used for patients with unstable renal function and has not been validated in children and those over 70. Current interpretive data was last reviewed 2021. Blood 05/22/2025 8:39 PM CDT 05/22/2025 9:32 PM CDT us Gordon Lenz MD LAB BLOOD ORDERABLES Final Resul t [facility] One [facility] Department [place] [address] * (ABNORMAL) Differential, auto (05/22/2025 8:39 PM CDT) Neutrophil abs 7.92(H) 1.50 - 6.50 K/cumm Imm gran abs 0.07 0.00 - 0.10 K/cumm [facility] Lymphocyte abs 1.31 0.80 - 3.30 K/cumm [facility] Monocyte abs 1.12(H) 0.20 - 0.80 K/cumm [facility] Eosinophil abs 0.16 0.00 - 0.50 K/cumm [facility] Basophil abs 0.03 0.00 - 0.10 K/cumm [facility] Neutrophil pct 74.6 % [facility] Comment: Interpretive Data Percent cell count reference ranges are not reported, since discordance with absolute values may lead to misinterpretation of CBC data. Current Interpretive Data was last revised on 2017. Imm gran pct 0.7 % [facility] Comment: Interpretive Data Percent cell count reference ranges are not reported, since discordance with absolute values may lead to misinterpretation of CBC data. Current Interpretive Data was last revised on 2017. Lymphocyte pct 12.3 % [facility] Comment: Interpretive Data Percent cell count reference ranges are not reported, since discordance with absolute values may lead to misinterpretation of CBC data. Current Interpretive Data was last revised on 2017. Monocyte pct 10.6 % [facility] Comment: Interpretive Data Percent cell count reference ranges are not reported, since discordance with absolute values may lead to misinterpretation of CBC data. Current Interpretive Data was last revised on 2017. Eosinophil pct 1.5 % [facility] Comment: Interpretive Data Percent cell count reference ranges are not reported, since discordance with absolute values may lead to misinterpretation of CBC data. Current Interpretive Data was last revised on 2017. Basophil pct 0.3 % [facility] Comment: Interpretive Data Percent cell count reference ranges are not reported, since discordance with absolute values may lead to misinterpretation of CBC data. Current Interpretive Data was last revised on 2017. Blood 05/22/2025 8:39 PM CDT 05/22/2025 9:31 PM CDT us Gordon Lenz MD LAB BLOOD ORDERABLES Final Resul t [facility] One [facility] Department [place] [address] * (ABNORMAL) CBC with auto differential (05/22/2025 8:39 PM CDT) WBC 10.61(H) 3.80 - 9.90 K/cumm Hgb 11.7(L) 13.0 - 17.5 g/dL [facility] Hct 33.9(L) 38.9 - 50.3 % [facility] Plt 259 150 - 400 K/cumm [facility] MPV 11.6 9.1 - 12.[address] [facility] RBC 4.14(L) 4.30 - 5.80 M/cumm [facility] MCV 81.9 81.3 - 96.[address] [facility] MCH 28.3 27.1 - 33.[address] [facility] MCHC 34.5 32.3 - 35.7 g/dL [facility] RDW CV 13.7 11.1 - 14.9 % [facility] RDW SD 40.3 35.7 - 48.[address] [facility] NRBC abs 0.00 0.00 - 0.01 K/cumm [facility] Blood 05/22/2025 8:39 PM CDT 05/22/2025 9:31 PM CDT us Gordon Lenz MD LAB BLOOD ORDERABLES Final Resul t [facility] One [facility] Department [place] [address] * (ABNORMAL) Comprehensive metabolic panel (05/22/2025 8:39 PM CDT) Sodium 140 135 - 145 mmol/L Potassium, pl 4.1 3.3 - 4.9 mmol/L [facility] Chloride 112(H) 97 - 110 mmol/L [facility] CO2 22 22 - 32 mmol/L [facility] Anion gap 6 2 - 15 mmol/L [facility] BUN 23 6 - 25 mg/dL [facility] Creatinine 2.12(H) 0.80 - 1.30 mg/dL [facility] Glucose 125 70 - 199 mg/dL [facility] Comment: Interpretive Data Fasting glucose >/= 126 mg/dl is diagnostic for diabetes. Fasting is defined as no caloric intake for at least 8 hours. Fasting glucose between 100 mg/dl to 125 mg/dl is diagnostic of prediabetes. In a patient with classic symptoms of hyperglycemia or hyperglycemic crisis, a random glucose >/= 200 mg/dl is diagnostic for diabetes. In the absence of unequivocal hyperglycemia, results should be confirmed by repeat testing. The classification and Diagnosis of Diabetes Diabetes Care 2021; 46: S19-S40. Current interpretive data was last revised 2022. Calcium 8.7 8.5 - 10.3 mg/dL [facility] Bilirubin, total 0.3 0.1 - 1.2 mg/dL [facility] Protein, pl 7.0 6.5 - 8.5 g/dL [facility] Albumin 3.4(L) 3.5 - 5.0 g/dL [facility] Alk phos 81 40 - 130 Units/L [facility] ALT 93(H) 7 - 55 Units/L [facility] AST 44 10 - 50 Units/L [facility] Blood 05/22/2025 8:39 PM CDT 05/22/2025 9:32 PM CDT Gordon Lenz MD LAB BLOOD ORDERABLES Final Resul t [facility] One [facility] Department [place] [address] * US Renal Complete W Complete Renal Doppler (C) (05/22/2025 11:35 AM CDT) Anatomical Region Laterality Modality Kidney N/A Ultrasound 05/22/2025 11:5 9 AM CDT Impressions 05/22/2025 11:59 AM CDT 1. No Doppler evidence of renal artery stenosis on the right or left. 2. Increased renal echogenicity consistent with parenchymal disease. No hydronephrosis. Electronically signed by: Bradley Stern M.D. Narrative 05/22/2025 11:59 AM CDT EXAMINATION: 1. COMPLETE RENAL SONOGRAM 2. RENAL DOPPLER (GABO) HISTORY: Hypertension with high suspicion of renal vascular etiology COMPARISON: None FINDINGS: COMPLETE RENAL SONOGRAM: Kidneys: The echogenicity of both kidneys is increased. The kidneys are normal in size. The right kidney measures 10.8 cm in length, and the left, 10.3 cm in length. There is no hydronephrosis in either kidney. A small left pleural effusion is partially visualized.. Bladder: The urinary bladder is normal RENAL DOPPLER: Color Doppler and spectral analysis were used to evaluate the renal vasculature. No focal flow abnormalities were seen in the renal arteries on color Doppler. The peak systolic velocities at the origins of the right and left renal arteries and aorta were 87 cm/sec, 79 cm/sec, and 99 cm/sec, respectively. These velocities and the renal to aortic ratios are within normal limits. The visualized portions of the right and left renal veins are patent. Procedure Note Bradley Stern MD - 05/22/2025 EXAMINATION: 1. COMPLETE RENAL SONOGRAM 2. RENAL DOPPLER (GABO) HISTORY: Hypertension with high suspicion of renal vascular etiology COMPARISON: None FINDINGS: COMPLETE RENAL SONOGRAM: Kidneys: The echogenicity of both kidneys is increased. The kidneys are normal in size. The right kidney measures 10.8 cm in length, and the left, 10.3 cm in length. There is no hydronephrosis in either kidney. A small left pleural effusion is partially visualized.. Bladder: The urinary bladder is normal RENAL DOPPLER: Color Doppler and spectral analysis were used to evaluate the renal vasculature. No focal flow abnormalities were seen in the renal arteries on color Doppler. The peak systolic velocities at the origins of the right and left renal arteries and aorta were 87 cm/sec, 79 cm/sec, and 99 cm/sec, respectively. These velocities and the renal to aortic ratios are within normal limits. The visualized portions of the right and left renal veins are patent. IMPRESSION: 1. No Doppler evidence of renal artery stenosis on the right or left. 2. Increased renal echogenicity consistent with parenchymal disease. No hydronephrosis. Electronically signed by: Bradley Stern M.D. us Matt Brunson MD IM US PROCEDURES Final Result * (ABNORMAL) eGFR (05/21/2025 9:52 PM CDT) eGFR 40(L) >=60 mL/min/1. 73 m2 Comment: Interpretive Data Reference Interval Normal >/= 90 mL/min/1.73m2 Mildly decreased* 60 - 89 mL/min/1.73m2 Mildly to moderately decreased 45 - 59 mL/min/1.73m2 Moderately to severely decreased 30 - 44 mL/min/1.73m2 Severely decreased 15 - 29 mL/min/1.73m2 Kidney Failure < 15 mL/min/1.73m2 *Relative to young adult level Estimated glomerular filtration rate is determined by the 2020 CKD-EPI equation recommended by the National Kidney [employer] (A Unifying Approach to GFR Estimation: Recommendations of the NKF-ASK Task Force on Reassessing the Inclusion of Race in Diagnosing Kidney Disease, JASN 2020). The CKD-EPI equation should not be used for patients with unstable renal function and has not been validated in children and those over 70. Current interpretive data was last reviewed 2021. Blood 05/21/2025 9:52 PM CDT 05/21/2025 10:38 PM CDT us Gordon Lenz MD LAB BLOOD ORDERABLES Final Resul t [facility] Department [place] [address] * (ABNORMAL) Differential, auto (05/21/2025 9:52 PM CDT) Neutrophil abs 8.29(H) 1.50 - 6.50 K/cumm Imm gran abs 0.08 0.00 - 0.10 K/cumm [facility] Lymphocyte abs 1.42 0.80 - 3.30 K/cumm [facility] Monocyte abs 1.31(H) 0.20 - 0.80 K/cumm [facility] Eosinophil abs 0.19 0.00 - 0.50 K/cumm [facility] Basophil abs 0.03 0.00 - 0.10 K/cumm [facility] Neutrophil pct 73.2 % [facility] Comment: Interpretive Data Percent cell count reference ranges are not reported, since discordance with absolute values may lead to misinterpretation of CBC data. Current Interpretive Data was last revised on 2017. Imm gran pct 0.7 % [facility] Comment: Interpretive Data Percent cell count reference ranges are not reported, since discordance with absolute values may lead to misinterpretation of CBC data. Current Interpretive Data was last revised on 2017. Lymphocyte pct 12.5 % [facility] Comment: Interpretive Data Percent cell count reference ranges are not reported, since discordance with absolute values may lead to misinterpretation of CBC data. Current Interpretive Data was last revised on 2017. Monocyte pct 11.6 % [facility] Comment: Interpretive Data Percent cell count reference ranges are not reported, since discordance with absolute values may lead to misinterpretation of CBC data. Current Interpretive Data was last revised on 2017. Eosinophil pct 1.7 % [facility] Comment: Interpretive Data Percent cell count reference ranges are not reported, since discordance with absolute values may lead to misinterpretation of CBC data. Current Interpretive Data was last revised on 2017. Basophil pct 0.3 % [facility] Comment: Interpretive Data Percent cell count reference ranges are not reported, since discordance with absolute values may lead to misinterpretation of CBC data. Current Interpretive Data was last revised on 2017. Blood 05/21/2025 9:52 PM CDT 05/21/2025 10:39 PM CDT Gordon Lenz MD LAB BLOOD ORDERABLES Final Resul t Performing Organization Address [facility] de Phone Number [facility] Department [place] [address] * (ABNORMAL) CBC with auto differential (05/21/2025 9:52 PM CDT) WBC 11.32(H) 3.80 - 9.90 K/cumm Hgb 11.3(L) 13.0 - 17.5 g/dL [facility] Hct 32.2(L) 38.9 - 50.3 % [facility] Plt 247 150 - 400 K/cumm [facility] MPV 11.7 9.1 - 12.[address] [facility] RBC 4.01(L) 4.30 - 5.80 M/cumm [facility] MCV 80.3(L) 81.3 - 96.[address] [facility] MCH 28.2 27.1 - 33.[address] [facility] MCHC 35.1 32.3 - 35.7 g/dL [facility] RDW CV 13.7 11.1 - 14.9 % [facility] RDW SD 39.7 35.7 - 48.[address] [facility] NRBC abs 0.00 0.00 - 0.01 K/cumm [facility] Blood 05/21/2025 9:52 PM CDT 05/21/2025 10:39 PM CDT Gordon Lenz MD LAB BLOOD ORDERABLES Final Resul t Performing Organization Address [facility]/State/ZIP Co de Phone Number [facility] Department [place] [address] * (ABNORMAL) Comprehensive metabolic panel (05/21/2025 9:52 PM CDT) Sodium 140 135 - 145 mmol/L Potassium, pl 4.3 3.3 - 4.9 mmol/L [facility] Chloride 110 97 - 110 mmol/L [facility] CO2 23 22 - 32 mmol/L [facility] Anion gap 7 2 - 15 mmol/L [facility] BUN 27(H) 6 - 25 mg/dL [facility] Creatinine 2.10(H) 0.80 - 1.30 mg/dL [facility] Glucose 100 70 - 199 mg/dL [facility] Comment: Interpretive Data Fasting glucose >/= 126 mg/dl is diagnostic for diabetes. Fasting is defined as no caloric intake for at least 8 hours. Fasting glucose between 100 mg/dl to 125 mg/dl is diagnostic of prediabetes. In a patient with classic symptoms of hyperglycemia or hyperglycemic crisis, a random glucose >/= 200 mg/dl is diagnostic for diabetes. In the absence of unequivocal hyperglycemia, results should be confirmed by repeat testing. The classification and Diagnosis of Diabetes Diabetes Care 202; 46: S19-S40. Current interpretive data was last revised 2022. Calcium 8.7 8.5 - 10.3 mg/dL [facility] Bilirubin, total 0.4 0.1 - 1.2 mg/dL [facility] Protein, pl 6.9 6.5 - 8.5 g/dL [facility] Albumin 3.6 3.5 - 5.0 g/dL [facility] Alk phos 76 40 - 130 Units/L [facility] ALT 96(H) 7 - 55 Units/L [facility] AST 40 10 - 50 Units/L [facility] Blood 05/21/2025 9:52 PM CDT 05/21/2025 10:38 PM CDT us Gordon Lenz MD LAB BLOOD ORDERABLES Final Resul t [facility] Department [place] [address] * MRI Brain W WO Contrast (05/21/2025 8:24 PM CDT) Anatomical Region Laterality Modality Head and Neck N/A Magnetic Resonan ce 05/21/2025 8:55 PM CDT Impressions 05/22/2025 9:55 AM CDT 1. Redemonstration of evolving hematoma in left frontal lobe with mass effect on the anterior horn of left lateral ventricle and rightward midline shift of 7 mm. 2. Multiple punctate foci of diffusion restriction in bilateral basal ganglia, right tobin radiata, left frontal lobe, body of corpus callosum, left parietal and right temporal lobe consistent with acute lacunar infarcts. Possibility of embolic infarcts is likely. The Critical results were discussed with Dr. Acosta by Dr. Bushra Maria on 05/21/2025 at 8:53 PM. Dictated by: Bushra Maria M.D. The radiology attending physician has personally reviewed this study, and had reviewed and/or edited this written report and agrees with it. Electronically signed by: Greer Strange MD Narrative 05/22/2025 9:55 AM CDT EXAMINATION: Magnetic resonance imaging (MRI) of the brain and brainstem without and with contrast HISTORY: Follow-up of left frontal hemorrhage. TECHNIQUE: Multiplanar multi-weighted MRI of the brain and brainstem was performed without and with intravenous contrast using the general brain protocol. Contrast information: 20 mL Gadoterate Meglumine IV COMPARISON: CT head 05/19/2025, 05/17/2025 FINDINGS: Redemonstration of a T2 and T1 hyperintense mixed intensity lesion in the left frontal lobe consistent with acute evolving hemorrhage. The hematoma measures 5.5 x 4.2 x 2.7 cm in AP by transverse by craniocaudal dimensions respectively and demonstrates mild peripheral enhancement. There is perilesional edema with mass effect on the anterior horn of left lateral ventricle with a rightward midline shift of 7 mm. Multiple punctate foci of diffusion restriction are seen in the bilateral basal ganglia, right tobin radiata, left frontal lobe, body of corpus callosum, left parietal lobe, right temporal lobe, consistent with acute lacunar infarcts. T2/FLAIR hyperintensities in periventricular white matter consistent with chronic microvascular ischemic changes. Chronic hemorrhage in left cerebral peduncle, left basal ganglia. The scalp and calvarium are normal. The superior sagittal sinus demonstrates normal venous flow. The posterior fossa is unremarkable. Partially empty sella. The brainstem and craniocervical junction are unremarkable. The paranasal sinuses are normal. Bilateral mastoid effusions. The orbits appear normal. Normal flow voids are demonstrated in the carotid arteries and basilar artery. Procedure Note Greer Strange MD PhD - 05/22/2025 EXAMINATION: Magnetic resonance imaging (MRI) of the brain and brainstem without and with contrast HISTORY: Follow-up of left frontal hemorrhage. TECHNIQUE: Multiplanar multi-weighted MRI of the brain and brainstem was performed without and with intravenous contrast using the general brain protocol. Contrast information: 20 mL Gadoterate Meglumine IV COMPARISON: CT head 05/19/2025, 05/17/2025 FINDINGS: Redemonstration of a T2 and T1 hyperintense mixed intensity lesion in the left frontal lobe consistent with acute evolving hemorrhage. The hematoma measures 5.5 x 4.2 x 2.7 cm in AP by transverse by craniocaudal dimensions respectively and demonstrates mild peripheral enhancement. There is perilesional edema with mass effect on the anterior horn of left lateral ventricle with a rightward midline shift of 7 mm. Multiple punctate foci of diffusion restriction are seen in the bilateral basal ganglia, right tobin radiata, left frontal lobe, body of corpus callosum, left parietal lobe, right temporal lobe, consistent with acute lacunar infarcts. T2/FLAIR hyperintensities in periventricular white matter consistent with chronic microvascular ischemic changes. Chronic hemorrhage in left cerebral peduncle, left basal ganglia. The scalp and calvarium are normal. The superior sagittal sinus demonstrates normal venous flow. The posterior fossa is unremarkable. Partially empty sella. The brainstem and craniocervical junction are unremarkable. The paranasal sinuses are normal. Bilateral mastoid effusions. The orbits appear normal. Normal flow voids are demonstrated in the carotid arteries and basilar artery. IMPRESSION: 1. Redemonstration of evolving hematoma in left frontal lobe with mass effect on the anterior horn of left lateral ventricle and rightward midline shift of 7 mm. 2. Multiple punctate foci of diffusion restriction in bilateral basal ganglia, right tobin radiata, left frontal lobe, body of corpus callosum, left parietal and right temporal lobe consistent with acute lacunar infarcts. Possibility of embolic infarcts is likely. The Critical results were discussed with Dr. Acosta by Dr. Bushra Maria on 05/21/2025 at 8:53 PM. Dictated by: Bushra Maria M.D. The radiology attending physician has personally reviewed this study, and had reviewed and/or edited this written report and agrees with it. Electronically signed by: Greer Strange MD us Matt Brunson MD IMG MRI PROCEDURES Final Result * (ABNORMAL) eGFR (05/20/2025 9:39 PM CDT) eGFR 37(L) >=60 mL/min/1. 73 m2 Comment: Interpretive Data Reference Interval Normal >/= 90 mL/min/1.73m2 Mildly decreased* 60 - 89 mL/min/1.73m2 Mildly to moderately decreased 45 - 59 mL/min/1.73m2 Moderately to severely decreased 30 - 44 mL/min/1.73m2 Severely decreased 15 - 29 mL/min/1.73m2 Kidney Failure < 15 mL/min/1.73m2 *Relative to young adult level Estimated glomerular filtration rate is determined by the 2020 CKD-EPI equation recommended by the National Kidney Foundation (A Unifying Approach to GFR Estimation: Recommendations of the NKF-ASK Task Force on Reassessing the Inclusion of Race in Diagnosing Kidney Disease, JASN 202). The CKD-EPI equation should not be used for patients with unstable renal function and has not been validated in children and those over 70. Current interpretive data was last reviewed 2021. Blood 05/20/2025 9:39 PM CDT 05/20/2025 10:36 PM CDT us Gordon Lenz MD LAB BLOOD ORDERABLES Final Resul t [facility] Department [place] [address] * (ABNORMAL) Differential, auto (05/20/2025 9:39 PM CDT) Pathologist [facility] Neutrophil abs 7.14(H) 1.50 - 6.50 K/cumm Imm gran abs 0.09 0.00 - 0.10 K/cumm [facility] Lymphocyte abs 1.41 0.80 - 3.30 K/cumm [facility] Monocyte abs 1.43(H) 0.20 - 0.80 K/cumm [facility] Eosinophil abs 0.16 0.00 - 0.50 K/cumm [facility] Basophil abs 0.03 0.00 - 0.10 K/cumm [facility] Neutrophil pct 69.6 % [facility] Comment: Interpretive Data Percent cell count reference ranges are not reported, since discordance with absolute values may lead to misinterpretation of CBC data. Current Interpretive Data was last revised on 2017. Imm gran pct 0.9 % [facility] Comment: Interpretive Data Percent cell count reference ranges are not reported, since discordance with absolute values may lead to misinterpretation of CBC data. Current Interpretive Data was last revised on 2017. Lymphocyte pct 13.7 % [facility] Comment: Interpretive Data Percent cell count reference ranges are not reported, since discordance with absolute values may lead to misinterpretation of CBC data. Current Interpretive Data was last revised on 2017. Monocyte pct 13.9 % [facility] Comment: Interpretive Data Percent cell count reference ranges are not reported, since discordance with absolute values may lead to misinterpretation of CBC data. Current Interpretive Data was last revised on 2017. Eosinophil pct 1.6 % [facility] Comment: Interpretive Data Percent cell count reference ranges are not reported, since discordance with absolute values may lead to misinterpretation of CBC data. Current Interpretive Data was last revised on 2017. Basophil pct 0.3 % [facility] Comment: Interpretive Data Percent cell count reference ranges are not reported, since discordance with absolute values may lead to misinterpretation of CBC data. Current Interpretive Data was last revised on 2017. Blood 05/20/2025 9:39 PM CDT 05/20/2025 10:37 PM CDT Gordon Lenz MD LAB BLOOD ORDERABLES Final Resul t Performing Organization Address [facility] de Phone Number [facility] Department [place] [address] * (ABNORMAL) CBC with auto differential (05/20/2025 9:39 PM CDT) [facility] WBC 10.26(H) 3.80 - 9.90 K/cumm Hgb 10.7(L) 13.0 - 17.5 g/dL [facility] Hct 32.1(L) 38.9 - 50.3 % [facility] Plt 229 150 - 400 K/cumm [facility] MPV 11.6 9.1 - 12.[address] [facility] RBC 3.91(L) 4.30 - 5.80 M/cumm [facility] MCV 82.1 81.3 - 96.[address] [facility] MCH 27.4 27.1 - 33.[address] [facility] MCHC 33.3 32.3 - 35.7 g/dL [facility] RDW CV 13.7 11.1 - 14.9 % [facility] RDW SD 40.4 35.7 - 48.[address] [facility] NRBC abs 0.00 0.00 - 0.01 K/cumm [facility] Blood 05/20/2025 9:39 PM CDT 05/20/2025 10:37 PM CDT Gordon Lenz MD LAB BLOOD ORDERABLES Final Resul t Performing Organization Address [facility] Co de Phone Number [facility] Department [place] [address] * (ABNORMAL) Comprehensive metabolic panel (05/20/2025 9:39 PM CDT) [facility] Sodium 140 135 - 145 mmol/L Potassium, pl 4.2 3.3 - 4.9 mmol/L [facility] Chloride 110 97 - 110 mmol/L [facility] CO2 21(L) 22 - 32 mmol/L [facility] Anion gap 9 2 - 15 mmol/L [facility] BUN 31(H) 6 - 25 mg/dL [facility] Creatinine 2.21(H) 0.80 - 1.30 mg/dL [facility] Glucose 98 70 - 199 mg/dL [facility] Comment: Interpretive Data Fasting glucose >/= 126 mg/dl is diagnostic for diabetes. Fasting is defined as no caloric intake for at least 8 hours. Fasting glucose between 100 mg/dl to 125 mg/dl is diagnostic of prediabetes. In a patient with classic symptoms of hyperglycemia or hyperglycemic crisis, a random glucose >/= 200 mg/dl is diagnostic for diabetes. In the absence of unequivocal hyperglycemia, results should be confirmed by repeat testing. The classification and Diagnosis of Diabetes Diabetes Care 202; 46: S19-S40. Current interpretive data was last revised 2022. Calcium 8.8 8.5 - 10.3 mg/dL [facility] Bilirubin, total 0.4 0.1 - 1.2 mg/dL [facility] Protein, pl 6.6 6.5 - 8.5 g/dL [facility] Albumin 3.1(L) 3.5 - 5.0 g/dL [facility] Alk phos 72 40 - 130 Units/L [facility] ALT 105(H) 7 - 55 Units/L [facility] AST 46 10 - 50 Units/L [facility] Blood 05/20/2025 9:39 PM CDT 05/20/2025 10:36 PM CDT us Gordon Lenz MD LAB BLOOD ORDERABLES Final Resul t [facility] Department [place] [address] * (ABNORMAL) eGFR (05/19/2025 8:09 PM CDT) eGFR 35(L) >=60 mL/min/1. 73 m2 Comment: Interpretive Data Reference Interval Normal >/= 90 mL/min/1.73m2 Mildly decreased* 60 - 89 mL/min/1.73m2 Mildly to moderately decreased 45 - 59 mL/min/1.73m2 Moderately to severely decreased 30 - 44 mL/min/1.73m2 Severely decreased 15 - 29 mL/min/1.73m2 Kidney Failure < 15 mL/min/1.73m2 *Relative to young adult level Estimated glomerular filtration rate is determined by the 2020 CKD-EPI equation recommended by the National Kidney Foundation (A Unifying Approach to GFR Estimation: Recommendations of the NKF-ASK Task Force on Reassessing the Inclusion of Race in Diagnosing Kidney Disease, JASN 2020). The CKD-EPI equation should not be used for patients with unstable renal function and has not been validated in children and those over 70. Current interpretive data was last reviewed 2021. Blood 05/19/2025 8:09 PM CDT 05/19/2025 8:32 PM CDT us Grace Granados NP LAB BLOOD ORDERABLES Final Result [facility] Department [place] [address] * (ABNORMAL) CBC without differential (05/19/2025 8:09 PM CDT) WBC 10.34(H) 3.80 - 9.90 K/cumm Hgb 10.9(L) 13.0 - 17.5 g/dL [facility] Hct 31.6(L) 38.9 - 50.3 % [facility] Plt 205 150 - 400 K/cumm [facility] MPV 11.8 9.1 - 12.[address] [facility] RBC 3.93(L) 4.30 - 5.80 M/cumm [facility] MCV 80.4(L) 81.3 - 96.[address] [facility] MCH 27.7 27.1 - 33.[address] [facility] MCHC 34.5 32.3 - 35.7 g/dL [facility] RDW CV 13.5 11.1 - 14.9 % [facility] RDW SD 39.7 35.7 - 48.[address] [facility] NRBC abs 0.00 0.00 - 0.01 K/cumm [facility] Blood 05/19/2025 8:09 PM CDT 05/19/2025 8:32 PM CDT Grace Riley ADVERTISING TEACHER LAB BLOOD ORDERABLES Final Result Performing Organization Address [facility] de Phone Number [facility] [place] [address] * Phosphorus (05/19/2025 8:09 PM CDT) [facility] Phosphorus, pl 4.2 2.3 - 4.5 mg/dL Blood 05/19/2025 8:09 PM CDT 05/19/2025 8:32 PM CDT Grace Riley ADVERTISING TEACHER LAB BLOOD ORDERABLES Final Result Performing Organization Address [facility] de Phone Number [facility] Department [place] [address] * Magnesium (05/19/2025 8:09 PM CDT) [facility] Magnesium 2.5 1.4 - 2.5 mg/dL Blood 05/19/2025 8:09 PM CDT 05/19/2025 8:32 PM CDT Grace Riley ADVERTISING TEACHER LAB BLOOD ORDERABLES Final Result Performing Organization Address [facility] [place] [address] * (ABNORMAL) Comprehensive metabolic panel (05/19/2025 8:09 PM CDT) [facility] Sodium 141 135 - 145 mmol/L Potassium, pl 4.2 3.3 - 4.9 mmol/L [facility] Chloride 111(H) 97 - 110 mmol/L [facility] CO2 21(L) 22 - 32 mmol/L [facility] Anion gap 9 2 - 15 mmol/L [facility] BUN 36(H) 6 - 25 mg/dL [facility] Creatinine 2.33(H) 0.80 - 1.30 mg/dL [facility] Glucose 125 70 - 199 mg/dL [facility] Comment: Interpretive Data Fasting glucose >/= 126 mg/dl is diagnostic for diabetes. Fasting is defined as no caloric intake for at least 8 hours. Fasting glucose between 100 mg/dl to 125 mg/dl is diagnostic of prediabetes. In a patient with classic symptoms of hyperglycemia or hyperglycemic crisis, a random glucose >/= 200 mg/dl is diagnostic for diabetes. In the absence of unequivocal hyperglycemia, results should be confirmed by repeat testing. The classification and Diagnosis of Diabetes Diabetes Care 202; 46: S19-S40. Current interpretive data was last revised 2022. Calcium 8.4(L) 8.5 - 10.3 mg/dL [facility] Bilirubin, total 0.4 0.1 - 1.2 mg/dL [facility] Protein, pl 6.7 6.5 - 8.5 g/dL [facility] Albumin 3.5 3.5 - 5.0 g/dL [facility] Alk phos 68 40 - 130 Units/L [facility] ALT 100(H) 7 - 55 Units/L [facility] Comment:Reviewed AST 61(H) 10 - 50 Units/L [facility] Blood 05/19/2025 8:09 PM CDT 05/19/2025 8:32 PM CDT Grace Granados ADVERTISING TEACHER LAB BLOOD ORDERABLES Final Result [facility] Department [place] [address] * CT Head WO Contrast (05/19/2025 5:17 AM CDT) Anatomical Region Laterality Modality Head and Neck N/A Computed Tomogra phy 05/19/2025 6:08 AM CDT Impressions 05/19/2025 10:22 AM CDT Unchanged left frontal lobe intraparenchymal hemorrhage with mass effect resulting in unchanged leftward midline shift. Dictated by: Bandar Robin M.D. The radiology attending physician has personally reviewed this study, and had reviewed and/or edited this written report and agrees with it. Electronically signed by: Linda Rodriguez M.D. Narrative 05/19/2025 10:22 AM CDT EXAMINATION: CT head without contrast HISTORY: Intracranial hemorrhage TECHNIQUE: CT of the head was performed with images acquired from skull base to vertex without intravenous contrast. COMPARISON: 05/17/2025. FINDINGS: Unchanged size of a large, approximately 6.1 cm (series 11 image 29) left anterior inferior frontal lobe intraparenchymal hemorrhage. There is unchanged mass effect with approximately 5 mm of leftward midline shift anteriorly. There is a small amount of unchanged vasogenic edema in the surrounding left frontal lobe. Ventricles are of normal size and morphology. The visualized portions of the orbits are normal. The visualized portions of the mastoids are normal. The visualized portions of the paranasal sinuses are normal. No fractures are identified. Multiple dental caries and periapical lucencies. Procedure Note Linda Rodriguez MD - 05/19/2025 EXAMINATION: CT head without contrast HISTORY: Intracranial hemorrhage TECHNIQUE: CT of the head was performed with images acquired from skull base to vertex without intravenous contrast. COMPARISON: 05/17/2025. FINDINGS: Unchanged size of a large, approximately 6.1 cm (series 11 image 29) left anterior inferior frontal lobe intraparenchymal hemorrhage. There is unchanged mass effect with approximately 5 mm of leftward midline shift anteriorly. There is a small amount of unchanged vasogenic edema in the surrounding left frontal lobe. Ventricles are of normal size and morphology. The visualized portions of the orbits are normal. The visualized portions of the mastoids are normal. The visualized portions of the paranasal sinuses are normal. No fractures are identified. Multiple dental caries and periapical lucencies. IMPRESSION: Unchanged left frontal lobe intraparenchymal hemorrhage with mass effect resulting in unchanged leftward midline shift. Dictated by: Bandar Robin M.D. The radiology attending physician has personally reviewed this study, and had reviewed and/or edited this written report and agrees with it. Electronically signed by: Linda Rodriguez M.D. us Bre Hanna ADVERTISING TEACHER IMG CT PROCEDURES Fi nal Result * (ABNORMAL) eGFR (05/18/2025 9:54 PM CDT) Pathologist [facility] eGFR 34(L) >=60 mL/min/1. 73 m2 Comment: Interpretive Data Reference Interval Normal >/= 90 mL/min/1.73m2 Mildly decreased* 60 - 89 mL/min/1.73m2 Mildly to moderately decreased 45 - 59 mL/min/1.73m2 Moderately to severely decreased 30 - 44 mL/min/1.73m2 Severely decreased 15 - 29 mL/min/1.73m2 Kidney Failure < 15 mL/min/1.73m2 *Relative to young adult level Estimated glomerular filtration rate is determined by the 2020 CKD-EPI equation recommended by the National Kidney Foundation (A Unifying Approach to GFR Estimation: Recommendations of the NKF-ASK Task Force on Reassessing the Inclusion of Race in Diagnosing Kidney Disease, JASN 2020). The CKD-EPI equation should not be used for patients with unstable renal function and has not been validated in children and those over 70. Current interpretive data was last reviewed 2021. Blood 05/18/2025 9:54 PM CDT 05/18/2025 10:13 PM CDT us Alphonse Sales MD LAB BLOOD ORDERABLES F inal Result [facility] Department [place] [address] * (ABNORMAL) CBC without differential (05/18/2025 9:54 PM CDT) Pathologist [facility] WBC 12.77(H) 3.80 - 9.90 K/cumm Hgb 11.5(L) 13.0 - 17.5 g/dL [facility] Hct 33.6(L) 38.9 - 50.3 % [facility] Plt 196 150 - 400 K/cumm [facility] MPV 11.9 9.1 - 12.[address] [facility] RBC 4.18(L) 4.30 - 5.80 M/cumm [facility] MCV 80.4(L) 81.3 - 96.[address] [facility] MCH 27.5 27.1 - 33.[address] [facility] MCHC 34.2 32.3 - 35.7 g/dL [facility] RDW CV 13.9 11.1 - 14.9 % [facility] RDW SD 40.6 35.7 - 48.[address] [facility] NRBC abs 0.00 0.00 - 0.01 K/cumm [facility] Blood 05/18/2025 9:54 PM CDT 05/18/2025 10:13 PM CDT Grace Riley NP LAB BLOOD ORDERABLES Final Result [facility] Department [place] [address] * (ABNORMAL) Basic metabolic panel (05/18/2025 9:54 PM CDT) Sodium 140 135 - 145 mmol/L Potassium, pl 4.3 3.3 - 4.9 mmol/L [facility] Chloride 104 97 - 110 mmol/L [facility] CO2 21(L) 22 - 32 mmol/L [facility] Anion gap 15 2 - 15 mmol/L [facility] BUN 38(H) 6 - 25 mg/dL [facility] Creatinine 2.37(H) 0.80 - 1.30 mg/dL [facility] Glucose 118 70 - 199 mg/dL [facility] Comment: Interpretive Data Fasting glucose >/= 126 mg/dl is diagnostic for diabetes. Fasting is defined as no caloric intake for at least 8 hours. Fasting glucose between 100 mg/dl to 125 mg/dl is diagnostic of prediabetes. In a patient with classic symptoms of hyperglycemia or hyperglycemic crisis, a random glucose >/= 200 mg/dl is diagnostic for diabetes. In the absence of unequivocal hyperglycemia, results should be confirmed by repeat testing. The classification and Diagnosis of Diabetes Diabetes Care 2021; 46: S19-S40. Current interpretive data was last revised 2022. Calcium 9.4 8.5 - 10.3 mg/dL [facility] Blood 05/18/2025 9:54 PM CDT 05/18/2025 10:13 PM CDT Alphonse Sales MD LAB BLOOD ORDERABLES F inal Result Performing Organization Address [facility] de Phone Number [facility] Department [place] [employer] [place] [address] * (ABNORMAL) eGFR (05/17/2025 10:26 PM CDT) eGFR 39(L) >=60 mL/min/1. 73 m2 Comment: Interpretive Data Reference Interval Normal >/= 90 mL/min/1.73m2 Mildly decreased* 60 - 89 mL/min/1.73m2 Mildly to moderately decreased 45 - 59 mL/min/1.73m2 Moderately to severely decreased 30 - 44 mL/min/1.73m2 Severely decreased 15 - 29 mL/min/1.73m2 Kidney Failure < 15 mL/min/1.73m2 *Relative to young adult level Estimated glomerular filtration rate is determined by the 2020 CKD-EPI equation recommended by the National Kidney Foundation (A Unifying Approach to GFR Estimation: Recommendations of the NKF-ASK Task Force on Reassessing the Inclusion of Race in Diagnosing Kidney Disease, JASN 2020). The CKD-EPI equation should not be used for patients with unstable renal function and has not been validated in children and those over 70. Current interpretive data was last reviewed 2021. Blood 05/17/2025 10:2 6 PM CDT 05/18/2025 12:22 AM CDT Alphonse Sales MD LAB BLOOD ORDERABLES F inal Result Performing Organization Address [facility] Co de Phone Number [facility] Department [place] [employer] [place] [address] * (ABNORMAL) Basic metabolic panel (05/17/2025 10:26 PM CDT) Sodium 141 135 - 145 mmol/L Potassium, pl 4.1 3.3 - 4.9 mmol/L [facility] Comment:Hemolyzed; Potassium value may be falsely elevated by as much as 0.3-0.5 mmol/L. Suggest redraw and reanalysis. Chloride 113(H) 97 - 110 mmol/L [facility] CO2 20(L) 22 - 32 mmol/L [facility] Anion gap 8 2 - 15 mmol/L [facility] BUN 38(H) 6 - 25 mg/dL [facility] Creatinine 2.12(H) 0.80 - 1.30 mg/dL [facility] Glucose 134 70 - 199 mg/dL [facility] Comment: Interpretive Data Fasting glucose >/= 126 mg/dl is diagnostic for diabetes. Fasting is defined as no caloric intake for at least 8 hours. Fasting glucose between 100 mg/dl to 125 mg/dl is diagnostic of prediabetes. In a patient with classic symptoms of hyperglycemia or hyperglycemic crisis, a random glucose >/= 200 mg/dl is diagnostic for diabetes. In the absence of unequivocal hyperglycemia, results should be confirmed by repeat testing. The classification and Diagnosis of Diabetes Diabetes Care 2021; 46: S19-S40. Current interpretive data was last revised 2022. Calcium 7.6(L) 8.5 - 10.3 mg/dL [facility] Blood 05/17/2025 10:2 6 PM CDT 05/18/2025 12:22 AM CDT us Alphonse Sales MD LAB BLOOD ORDERABLES F inal Result [facility] Department [place] [address] * Urinalysis reflex to microscopic and culture Urine (05/17/2025 3:17 PM CDT) Color, ur Yellow Yellow Clarity, ur Clear Clear [facility] Specific gravity, ur 1.019 1.003 - 1.[address] [facility] pH, urine 6.[address] [facility] Comment: Interpretive Data U rine pH is affected by diet, medications, systemic acid-base disturbances, and renal tubular function. pH may affect urinary stone formation. For example, urine pH below 6.0 may help reduce the tendency for calcium phosphate stones and pH greater than 6.0 may reduce the tendency for uric acid stone formation. Source: [facility] Current Interpretive Data was last revised on 2017 Protein, ur ql Trace Negative [facility] Glucose, ur ql Negative Negative [facility] Ketones, ur Negative Negative [facility] Bilirubin, ur Negative Negative [facility] Blood, ur Negative Negative [facility] Urobilinogen, ur <2.0 <2.0 mg/dL [facility] Nitrite, ur Negative Negative [facility] Leukocyte esterase, ur Negative Negative [facility] UA reflex comment Reflex conditions for microscopic UA and culture not met. [facility] Urine 05/17/2025 3:17 PM CDT 05/17/2025 3:26 PM CDT us Gordon Lenz MD LAB MICROBIOLOGY - GENERAL ORDER DERIAN Final Result [facility] Department [place] [address] * US Vein Duplex Upper Extremity Bilateral Complete (05/17/2025 12:53 PM CDT) Anatomical Region Laterality Modality Vascular Bilateral Ultrasound 05/17/2025 10:5 1 AM CDT Narrative 05/17/2025 11:43 PM CDT [employer] [facility] [employer] [facility] - Department of Vascular Surgery, Vascular Laboratory [address] [place] [id number] Upper Extremity Venous Ultrasound Report Patient Name: BRADLEY BROWNING : 1980 (44y 5m) Study Date: 05/17/2025 10:51:11 AM Sex: M Tech: Location: [id number] Ref Provider: CULANCULAN, BRE Quality: Adequate Order Provider: BRE HANNA PROCEDURES: Vascular Report: Venous Duplex imaging was performed bilaterally in the upper extremities. The internal jugular, subclavian and axillary veins were evaluated for patency, spontaneity and phasicity with Doppler, compression and augmentation maneuvers. The brachial, basilic and cephalic veins were also evaluated with compression maneuvers. INDICATIONS: Localized Edema - FINDINGS: Performing Electrical Systems Drafter: Aishwarya New RVT. Right: Venous Doppler signals in the right upper extremity are within normal limits for spontaneity and phasicity; normal response to compression maneuvers. Positive for superficial vein thrombus in the right upper extremity. Superficial veins involved include the cephalic vein at the elbow and superficial thrombus length is <5cm. Left: Venous Doppler signals in the left upper extremity are within normal limits for spontaneity and phasicity; normal response to compression maneuvers. Positive for superficial vein thrombus in the left upper extremity. Superficial veins involved include the cephalic vein rom the proximal upper arm to the proximal forearm (associated with an IV at the proximal forearm) and superficial thrombus length is >5cm. CONCLUSIONS: 1. No evidence of acute deep vein thrombosis bilaterally in the upper extremities. 2. Superficial vein thrombus in the right upper extremity. 3. Superficial vein thrombus in the left upper extremity. HISTORY: Brain hemorrhage, localized edema. PREVIOUS STUDIES: No previous studies for comparison. DISCLAIMER: The study images and the final report will be retained in the patient chart by the Vascular Laboratory for the legally required time period. This chart constitutes the legal record of any testing performed. ATTESTATION: I have reviewed and interpreted the pertinent images and measurements of this study. I attest to the conclusions in the final report that is provided above. Electronically Signed By: Kp Lemon MD FACS 05/17/2025 11:35:55 PM CDT Procedure Note Kp Lemon MD - 05/17/2025 [facility] - Department of Vascular Surgery,Vascular Laboratory [address] [place] [address] Upper Extremity Venous Ultrasound Report Patient Name: BRADLEY BROWNING : 1980 (44y 5m) Study Date: 05/17/2025 10:51:11 AM Sex: M Tech: Location: [id number] [facility] Provider: BRE HANNA Quality: Adequate Order Provider: BRE HANNA PROCEDURES: Vascular Report: Venous Duplex imaging was performed bilaterally in the upper extremities.The internal jugular, subclavian and axillary veins were evaluated for patency,spontaneity and phasicity with Doppler, compression and augmentation maneuvers. Thebrachial, basilic and cephalic veins were also evaluated with compression maneuvers. INDICATIONS: Localized Edema - FINDINGS: Performing Electrical Systems Drafter: Aishwarya New RVT. Right: Venous Doppler signals in the right upper extremity are within normallimits for spontaneity and phasicity; normal response to compression maneuvers.Positive for superficial vein thrombus in the right upper extremity. Superficial veinsinvolved include the cephalic vein at the elbow and superficial thrombus length is<5cm. Left: Venous Doppler signals in the left upper extremity are within normallimits for spontaneity and phasicity; normal response to compression maneuvers.Positive for superficial vein thrombus in the left upper extremity. Superficial veinsinvolved include the cephalic vein rom the proximal upper arm to the proximal forearm(associated with an IV at the proximal forearm) and superficial thrombus length is >5cm. CONCLUSIONS: 1. No evidence of acute deep vein thrombosis bilaterally in the upperextremities. 2. Superficial vein thrombus in the right upper extremity. 3. Superficial vein thrombus in the left upper extremity. HISTORY: Brain hemorrhage, localized edema. PREVIOUS STUDIES: No previous studies for comparison. DISCLAIMER: The study images and the final report will be retained in the patientchart by the Vascular Laboratory for the legally required time period. This chartconstitutes the legal record of any testing performed. ATTESTATION: I have reviewed and interpreted the pertinent images and measurements ofthis study. I attest to the conclusions in the final report that is provided above. Electronically Signed By: Kp Lemon MD FACS 05/17/2025 11:35:55 PM CDT us Bre Hanna ADVERTISING TEACHER IMG US PROCEDURES Fi nal Result * CT Head Stealth WO Contrast (05/17/2025 12:16 PM CDT) Anatomical Region Laterality Modality Head and Neck N/A Computed Tomogra phy 05/17/2025 12:3 8 PM CDT Impressions 05/17/2025 12:38 PM CDT As compared to immediate prior study, grossly left frontotemporal intraparenchymal hemorrhage with intraventricular extension. Redemonstrated consequent mass effect and rightward midline shift without herniation. Electronically signed by: Misa Jacobo M.D. Narrative 05/17/2025 12:38 PM CDT EXAMINATION: CT head without contrast HISTORY: Follow-up intraparenchymal hemorrhage TECHNIQUE: CT of the head was performed with images acquired from skull base to vertex without intravenous contrast. COMPARISON: Head CT dated 05/15/2025. CTA had dated 05/11/2025. FINDINGS: Large left frontotemporal intraparenchymal hemorrhage with intraventricular extension. There is surrounding vasogenic edema which exerts mass effect on the anterior and, to a lesser degree, the posterior horns of the left lateral ventricle. Diffuse, left-predominant effacement of sulci. There is rightward midline shift is grossly unchanged from previous examination. No findings concerning for herniation. The visualized portions of the orbits are normal. The visualized portions of the mastoids are normal. The visualized portions of the paranasal sinuses are normal. No fractures are identified. Procedure Note Lyle Jacobo, Misa Ojeda MD - 05/17/2025 EXAMINATION: CT head without contrast HISTORY: Follow-up intraparenchymal hemorrhage TECHNIQUE: CT of the head was performed with images acquired from skull base to vertex without intravenous contrast. COMPARISON: Head CT dated 05/15/2025. CTA had dated 05/11/2025. FINDINGS: Large left frontotemporal intraparenchymal hemorrhage with intraventricular extension. There is surrounding vasogenic edema which exerts mass effect on the anterior and, to a lesser degree, the posterior horns of the left lateral ventricle. Diffuse, left-predominant effacement of sulci. There is rightward midline shift is grossly unchanged from previous examination. No findings concerning for herniation. The visualized portions of the orbits are normal. The visualized portions of the mastoids are normal. The visualized portions of the paranasal sinuses are normal. No fractures are identified. IMPRESSION: As compared to immediate prior study, grossly left frontotemporal intraparenchymal hemorrhage with intraventricular extension. Redemonstrated consequent mass effect and rightward midline shift without herniation. Electronically signed by: Misa Jacobo M.D. Gordon Lenz MD IMG CT PROCEDURES Final Result * (ABNORMAL) Blood gas, arterial (05/17/2025 11:26 AM CDT) pH, Art 7.42 7.35 - 7.45 PCO2, Arterial 33(L) 35 - [address] [facility] PO2, Arterial 76(L) 83 - [address] [facility] HCO3 Art (Calculated) 21 20 - 30 mmol/L [facility] BE, art -2 mmol/L [facility] Comment: Interpretive Data No Reference Range Established Current Interpretive Data was last revised on 2017 O2 Sat Art (Measured) 96(H) 90 - 95 % [facility] Blood 05/17/2025 11:2 6 AM CDT 05/17/2025 11:38 AM CDT Gordon Lenz MD LAB BLOOD ORDERABLES Final Resul t Performing Organization Address [facility] Co de Phone Number [facility] Department [place] [address] * Trichomonas vaginalis PCR Urine (05/17/2025 4:36 AM CDT) [facility] Trichomonas DNA Not Detected Not Detected [facility] Urine 05/17/2025 4:36 AM CDT 05/17/2025 4:59 AM CDT Narrative [facility] - 05/17/2025 6:17 AM CDT Interpretive Data: This assay detects Trichomonas vaginalis by nucleic acid amplification testing (NAAT). This assay has been cleared by the [place] Food and Drug administration. The performance characteristics of this test have been verified by the [facility] Molecular Infectious Disease laboratory. Excess blood in specimens may be inhibitory and result in false negative results. The performance of this test has not been evaluated in women or individuals less than 18 years of age. us Raina Obregon NP LAB MICROBIOLOGY - GENERAL O RDERABLES Final Result Performing Organization Address [facility] Co de Phone Number [facility] Department [place] [address] [facility] * Blood culture Blood (05/17/2025 4:36 AM CDT) Report Final Report: No growth Blood 05/17/2025 4:36 AM CDT 05/17/2025 4:52 AM CDT Narrative RIGOBERTO KHAN - 05/21/2025 7:01 AM CDT Collection->Peripheral 1. Blood cultures are incubated for 4 days on a continuously monitored blood culture system. The first report of a negative culture is issued within 24 hours of receipt of the specimen in the laboratory. 2. Positive culture results are reported as soon as they are detected. 3. The most important factor for detection of microbes in the setting of bloodstream infection is the volume of blood submitted for culture. Failure to collect an optimal blood volume can result in false negative blood cultures. 4. For pediatric patients, the recommended blood volume to collect follows a weight based strategy. See the electronic test catalog for collection instructions. 5. For positive blood cultures, a rapid molecular test may be performed for organism identification using the [employer] blood culture identification panel for gram positive (BCID-GP) and gram negative (BCID-GN) organisms. This nucleic acid amplification test detects microbial DNA in positive blood culture broth. This assay has been cleared by the [place] Food and Drug Administration and its performance characteristics have been verified by the [facility] Microbiology Laboratory. For questions about this culture, contact the Microbiology Laboratory at [phone]. Interpretive data was last revised on 24. Raina Obregon NP LAB MICROBIOLOGY - GENERAL O RDERABLES Final Result [facility]ERT[facility] HAND [facility] Department [place] [address] * Blood culture Blood (05/17/2025 4:36 AM CDT) Report Final Report: No growth Blood 05/17/2025 4:36 AM CDT 05/17/2025 4:52 AM CDT Narrative RIGOBERTO KHAN - 05/21/2025 7:01 AM CDT Collection->Peripheral 1. Blood cultures are incubated for 4 days on a continuously monitored blood culture system. The first report of a negative culture is issued within 24 hours of receipt of the specimen in the laboratory. 2. Positive culture results are reported as soon as they are detected. 3. The most important factor for detection of microbes in the setting of bloodstream infection is the volume of blood submitted for culture. Failure to collect an optimal blood volume can result in false negative blood cultures. 4. For pediatric patients, the recommended blood volume to collect follows a weight based strategy. See the electronic test catalog for collection instructions. 5. For positive blood cultures, a rapid molecular test may be performed for organism identification using the [employer] blood culture identification panel for gram positive (BCID-GP) and gram negative (BCID-GN) organisms. This nucleic acid amplification test detects microbial DNA in positive blood culture broth. This assay has been cleared by the [place] Food and Drug Administration and its performance characteristics have been verified by the [facility] Microbiology Laboratory. For questions about this culture, contact the Microbiology Laboratory at [phone]. Interpretive data was last revised on 24. Raina Obregon NP LAB MICROBIOLOGY - GENERAL O RDERABLES Final Result RIGOBERTO [facility] Department [place] [address] * (ABNORMAL) eGFR (05/17/2025 12:02 AM CDT) eGFR 39(L) >=60 mL/min/1. 73 m2 Comment: Interpretive Data Reference Interval Normal >/= 90 mL/min/1.73m2 Mildly decreased* 60 - 89 mL/min/1.73m2 Mildly to moderately decreased 45 - 59 mL/min/1.73m2 Moderately to severely decreased 30 - 44 mL/min/1.73m2 Severely decreased 15 - 29 mL/min/1.73m2 Kidney Failure < 15 mL/min/1.73m2 *Relative to young adult level Estimated glomerular filtration rate is determined by the 2020 CKD-EPI equation recommended by the National Kidney Foundation (A Unifying Approach to GFR Estimation: Recommendations of the NKF-ASK Task Force on Reassessing the Inclusion of Race in Diagnosing Kidney Disease, JASN 2020). The CKD-EPI equation should not be used for patients with unstable renal function and has not been validated in children and those over 70. Current interpretive data was last reviewed 2021. Blood 05/17/2025 12:0 2 AM CDT 05/17/2025 12:54 AM CDT Alphonse Sales MD LAB BLOOD ORDERABLES F inal Result Performing Organization Address City/[facility]/ZIP Co de Phone Number [facility] Department [place] [employer] [place] [address] * (ABNORMAL) CBC without differential (05/17/2025 12:02 AM CDT) WBC 13.07(H) 3.80 - 9.90 K/cumm Hgb 11.5(L) 13.0 - 17.5 g/dL [facility] Hct 33.3(L) 38.9 - 50.3 % [facility] Plt 153 150 - 400 K/cumm [facility] MPV 12.7(H) 9.1 - 12.[address] [facility] RBC 4.15(L) 4.30 - 5.80 M/cumm [facility] MCV 80.2(L) 81.3 - 96.[address] [facility] MCH 27.7 27.1 - 33.[address] [facility] MCHC 34.5 32.3 - 35.7 g/dL [facility] RDW CV 14.1 11.1 - 14.9 % [facility] RDW SD 41.1 35.7 - 48.[address] [facility] NRBC abs 0.00 0.00 - 0.01 K/cumm [facility] Blood 05/17/2025 12:0 2 AM CDT 05/17/2025 12:57 AM CDT Grace Riley NP LAB BLOOD ORDERABLES Final Result Performing Organization Address City/[facility]/ZIP Co de Phone Number [facility] Department [place] [address] * (ABNORMAL) Basic metabolic panel (05/17/2025 12:02 AM CDT) Sodium 141 135 - 145 mmol/L Potassium, pl 3.6 3.3 - 4.9 mmol/L [facility] Chloride 109 97 - 110 mmol/L [facility] CO2 22 22 - 32 mmol/L [facility] Anion gap 10 2 - 15 mmol/L [facility] BUN 36(H) 6 - 25 mg/dL [facility] Creatinine 2.12(H) 0.80 - 1.30 mg/dL [facility] Glucose 122 70 - 199 mg/dL [facility] Comment: Interpretive Data Fasting glucose >/= 126 mg/dl is diagnostic for diabetes. Fasting is defined as no caloric intake for at least 8 hours. Fasting glucose between 100 mg/dl to 125 mg/dl is diagnostic of prediabetes. In a patient with classic symptoms of hyperglycemia or hyperglycemic crisis, a random glucose >/= 200 mg/dl is diagnostic for diabetes. In the absence of unequivocal hyperglycemia, results should be confirmed by repeat testing. The classification and Diagnosis of Diabetes Diabetes Care 2021; 46: S19-S40. Current interpretive data was last revised 2022. Calcium 8.9 8.5 - 10.3 mg/dL [facility] Blood 05/17/2025 12:0 2 AM CDT 05/17/2025 12:54 AM CDT us Alphonse Sales MD LAB BLOOD ORDERABLES F inal Result [facility] Department [place] [address] * Continuous Video EEG (05/16/2025 8:49 AM CDT) Anatomical Region Laterality Modality EEG Narrative 06/08/2025 9:43 AM SEARCH ENGINE MARKETING SPECIALIST Video-EEG Report Patient Name: [facility] Record Number (MRN): [id number] [facility] Record: [id number] Date of (): 1980 Ordering Provider: Bayron Philip MD CC: Unknown, Notinfile Start Time: 05/14/2025 12:28:57 PM End Time: 05/16/2025 7:47:47 AM Introduction: Mr. Browning is a 44 y.o. male with a history of HTN who [facility] new 5 x 5 cm L frontal intraparenchymal hematoma, presenting with altered mental status. The EEG was performed to evaluate for seizures. This is a report of continuous video-EEG monitoring. High definition digital video and digital EEG were recorded continuously with a [employer]lenda EEG acquisition system. This was a 32 channel EEG with additional anterior temporal electrodes. Electrodes were placed with collodion following the 10/20 International System. The patient was monitored and observed continuously by technical personnel. Digital seizure and spike detection were utilized during the recording. EEG description: Epoch 1 : 05/14/2025 12:28:57 PM to 05/15/2025 8:00:00 AM BACKGROUND: The background was continuous, organized of the right hemisphere and there was a 10 well formed posterior dominant rhythm bilaterally. There was abundant focal irregular delta slowing in the left frontal region. Sleep II structures were seen. The record showed variability. Hyperventilation and photic strobe stimulation were not performed. SPORADIC DISCHARGES: None. PERIODIC OR RHYTHMIC PATTERNS: None. SEIZURES: None. EVENTS: None reported. EKG: No significant dysrhythmia. Epoch 2 : 05/15/2025 8:00:00 AM to 05/16/2025 7:47:47 AM BACKGROUND: The background was continuous, organized of the right hemisphere and there was a 10 well formed posterior dominant rhythm bilaterally. There was abundant focal irregular delta slowing in the left frontal region. Sleep II structures were seen. The record showed variability. Hyperventilation and photic strobe stimulation were not performed. SPORADIC DISCHARGES: None. PERIODIC OR RHYTHMIC PATTERNS: None. SEIZURES: None. EVENTS: None reported. EKG: No significant dysrhythmia. Interpretation: No clinical or electrographic seizures were recorded during this study. The interictal EEG was abnormal due to left frontal focal irregular delta slowing. Focal slowing indicates focal cerebral dysfunction. A structural or physiological abnormality should be considered. These findings were discussed with the treating physicians on an at least twice daily basis. Abe Robles MD By signing this report, the attending Electroencephalographer certifies that he/she personally reviewed the electrodiagnostics study and has edited this report to fully conform with his/her intent. Polo Larose MD NEUROLOGY ORDERABLES Final Result * (ABNORMAL) eGFR (05/15/2025 8:33 PM CDT) eGFR 37(L) >=60 mL/min/1. 73 m2 Comment: Interpretive Data Reference Interval Normal >/= 90 mL/min/1.73m2 Mildly decreased* 60 - 89 mL/min/1.73m2 Mildly to moderately decreased 45 - 59 mL/min/1.73m2 Moderately to severely decreased 30 - 44 mL/min/1.73m2 Severely decreased 15 - 29 mL/min/1.73m2 Kidney Failure < 15 mL/min/1.73m2 *Relative to young adult level Estimated glomerular filtration rate is determined by the 2020 CKD-EPI equation recommended by the National Kidney Foundation (A Unifying Approach to GFR Estimation: Recommendations of the NKF-ASK Task Force on Reassessing the Inclusion of Race in Diagnosing Kidney Disease, JASN 2020). The CKD-EPI equation should not be used for patients with unstable renal function and has not been validated in children and those over 70. Current interpretive data was last reviewed 2021. Blood 05/15/2025 8:33 PM CDT 05/15/2025 8:48 PM CDT Alphonse Sales MD LAB BLOOD ORDERABLES F inal Result [facility] Department [place] [address] * (ABNORMAL) CBC without differential (05/15/2025 8:33 PM CDT) WBC 12.23(H) 3.80 - 9.90 K/cumm Hgb 11.4(L) 13.0 - 17.5 g/dL [facility] Hct 33.2(L) 38.9 - 50.3 % [facility] Plt 119(L) 150 - 400 K/cumm [facility] MPV 12.8(H) 9.1 - 12.[address] [facility] RBC 4.11(L) 4.30 - 5.80 M/cumm [facility] MCV 80.8(L) 81.3 - 96.[address] [facility] MCH 27.7 27.1 - 33.[address] [facility] MCHC 34.3 32.3 - 35.7 g/dL [facility] RDW CV 14.5 11.1 - 14.9 % [facility] RDW SD 42.7 35.7 - 48.[address] [facility] NRBC abs 0.00 0.00 - 0.01 K/cumm [facility] Blood 05/15/2025 8:33 PM CDT 05/15/2025 8:48 PM CDT Grace Riley NP LAB BLOOD ORDERABLES Final Result [facility] Department [place] [address] * (ABNORMAL) Basic metabolic panel (05/15/2025 8:33 PM CDT) Sodium 140 135 - 145 mmol/L Potassium, pl 3.8 3.3 - 4.9 mmol/L [facility] Chloride 106 97 - 110 mmol/L [facility] CO2 20(L) 22 - 32 mmol/L [facility] Anion gap 14 2 - 15 mmol/L [facility] BUN 38(H) 6 - 25 mg/dL [facility] Creatinine 2.23(H) 0.80 - 1.30 mg/dL [facility] Glucose 140 70 - 199 mg/dL [facility] Comment: Interpretive Data Fasting glucose >/= 126 mg/dl is diagnostic for diabetes. Fasting is defined as no caloric intake for at least 8 hours. Fasting glucose between 100 mg/dl to 125 mg/dl is diagnostic of prediabetes. In a patient with classic symptoms of hyperglycemia or hyperglycemic crisis, a random glucose >/= 200 mg/dl is diagnostic for diabetes. In the absence of unequivocal hyperglycemia, results should be confirmed by repeat testing. The classification and Diagnosis of Diabetes Diabetes Care 2021; 46: S19-S40. Current interpretive data was last revised 2022. Calcium 8.1(L) 8.5 - 10.3 mg/dL [facility] Blood 05/15/2025 8:33 PM CDT 05/15/2025 8:48 PM CDT us Alphonse Sales MD LAB BLOOD ORDERABLES F inal Result [facility] Department [place] [address] * CT Head Stealth WO Contrast (05/15/2025 10:02 AM CDT) Anatomical Region Laterality Modality Head and Neck N/A Computed Tomogra phy 05/15/2025 10:2 0 AM CDT Impressions 05/15/2025 11:08 AM CDT Stable left frontotemporal intraparenchymal hemorrhage with intraventricular extension. Redemonstrated consequent mass effect and rightward midline shift without herniation. Dictated by: Melida Posey M.D. The radiology attending physician has personally reviewed this study, and had reviewed and/or edited this written report and agrees with it. Electronically signed by: Greer Strange MD Narrative 05/15/2025 11:08 AM CDT EXAMINATION: CT head without contrast HISTORY: 44-year-old male, intraparenchymal hemorrhage. TECHNIQUE: CT of the head was performed with images acquired from skull base to vertex without intravenous contrast. COMPARISON: CT head 05/14/2025. FINDINGS: Large left frontotemporal intraparenchymal hemorrhage with intraventricular extension. There is surrounding vasogenic edema which exerts mass effect on the anterior and, to a lesser degree, the posterior horns of the left lateral ventricle. Diffuse, left-predominant effacement of sulci. There is rightward midline shift of approximately 0.7 cm, minimally increased from previous examination. No findings concerning for herniation. The friedman-white matter differentiation is normal. The visualized portions of the orbits are normal. The visualized portions of the mastoids are normal. The visualized portions of the paranasal sinuses are normal. No fractures are identified. Procedure Note Greer Strange MD PhD - 05/15/2025 EXAMINATION: CT head without contrast HISTORY: 44-year-old male, intraparenchymal hemorrhage. TECHNIQUE: CT of the head was performed with images acquired from skull base to vertex without intravenous contrast. COMPARISON: CT head 05/14/2025. FINDINGS: Large left frontotemporal intraparenchymal hemorrhage with intraventricular extension. There is surrounding vasogenic edema which exerts mass effect on the anterior and, to a lesser degree, the posterior horns of the left lateral ventricle. Diffuse, left-predominant effacement of sulci. There is rightward midline shift of approximately 0.7 cm, minimally increased from previous examination. No findings concerning for herniation. The friedman-white matter differentiation is normal. The visualized portions of the orbits are normal. The visualized portions of the mastoids are normal. The visualized portions of the paranasal sinuses are normal. No fractures are identified. IMPRESSION: Stable left frontotemporal intraparenchymal hemorrhage with intraventricular extension. Redemonstrated consequent mass effect and rightward midline shift without herniation. Dictated by: Melida Posey M.D. The radiology attending physician has personally reviewed this study, and had reviewed and/or edited this written report and agrees with it. Electronically signed by: Greer Strange MD Polo Larose MD IMG CT PROCEDURES Final Re sult * (ABNORMAL) Lactate dehydrogenase (LD) (05/15/2025 8:44 AM CDT) Lactate dehydrogenase (LDH) 364(H) 100 - 250 Units/L Blood 05/15/2025 8:44 AM CDT 05/15/2025 9:00 AM CDT Polo Larose MD LAB BLOOD ORDERABLES Final Result [facility] Department [place] [address] * (ABNORMAL) Haptoglobin (05/15/2025 8:44 AM CDT) Haptoglobin 203.0(H) 30.0 - 200.0 mg/dL Blood 05/15/2025 8:44 AM CDT 05/15/2025 9:00 AM CDT Polo Larose MD LAB BLOOD ORDERABLES [place] [address] * Potassium, whole blood (05/14/2025 11:29 PM CDT) Potassium, bld 3.6 3.3 - 4.9 mmol/L Blood 05/14/2025 11:2 9 PM CDT 05/14/2025 11:39 PM CDT Sean Fine NP LAB BLOOD ORDERABLES Fin al Result [facility] [place] [address] * (ABNORMAL) eGFR (05/14/2025 8:47 PM CDT) eGFR 35(L) >=60 mL/min/1. 73 m2 Comment: Interpretive Data Reference Interval Normal >/= 90 mL/min/1.73m2 Mildly decreased* 60 - 89 mL/min/1.73m2 Mildly to moderately decreased 45 - 59 mL/min/1.73m2 Moderately to severely decreased 30 - 44 mL/min/1.73m2 Severely decreased 15 - 29 mL/min/1.73m2 Kidney Failure < 15 mL/min/1.73m2 *Relative to young adult level Estimated glomerular filtration rate is determined by the 2020 CKD-EPI equation recommended by the National Kidney Foundation (A Unifying Approach to GFR Estimation: Recommendations of the NKF-ASK Task Force on Reassessing the Inclusion of Race in Diagnosing Kidney Disease, JASN 202). The CKD-EPI equation should not be used for patients with unstable renal function and has not been validated in children and those over 70. Current interpretive data was last reviewed 2021. Blood 05/14/2025 8:47 PM CDT 05/14/2025 10:03 PM CDT us Alphonse Sales MD LAB BLOOD ORDERABLES F inal Result [facility] Department [place] [address] * (ABNORMAL) Differential, auto (05/14/2025 8:47 PM CDT) Neutrophil abs 10.12(H) 1.50 - 6.50 K/cumm Imm gran abs 0.07 0.00 - 0.10 K/cumm [facility] Lymphocyte abs 0.79(L) 0.80 - 3.30 K/cumm [facility] Monocyte abs 1.26(H) 0.20 - 0.80 K/cumm [facility] Eosinophil abs 0.01 0.00 - 0.50 K/cumm [facility] Basophil abs 0.02 0.00 - 0.10 K/cumm [facility] Neutrophil pct 82.4 % [facility] Comment: Interpretive Data Percent cell count reference ranges are not reported, since discordance with absolute values may lead to misinterpretation of CBC data. Current Interpretive Data was last revised on 2017. Imm gran pct 0.6 % [facility] Comment: Interpretive Data Percent cell count reference ranges are not reported, since discordance with absolute values may lead to misinterpretation of CBC data. Current Interpretive Data was last revised on 2017. Lymphocyte pct 6.4 % [facility] Comment: Interpretive Data Percent cell count reference ranges are not reported, since discordance with absolute values may lead to misinterpretation of CBC data. Current Interpretive Data was last revised on 2017. Monocyte pct 10.3 % [facility] Comment: Interpretive Data Percent cell count reference ranges are not reported, since discordance with absolute values may lead to misinterpretation of CBC data. Current Interpretive Data was last revised on 2017. Eosinophil pct 0.1 % [facility] Comment: Interpretive Data Percent cell count reference ranges are not reported, since discordance with absolute values may lead to misinterpretation of CBC data. Current Interpretive Data was last revised on 2017. Basophil pct 0.2 % [facility] Comment: Interpretive Data Percent cell count reference ranges are not reported, since discordance with absolute values may lead to misinterpretation of CBC data. Current Interpretive Data was last revised on 2017. Blood 05/14/2025 8:4 7 PM CDT 05/14/2025 10:03 PM CDT us Alphonse Sales MD LAB BLOOD ORDERABLES F inal Result [facility] Department [place] [address] * (ABNORMAL) CBC with auto differential (05/14/2025 8:47 PM CDT) WBC 12.27(H) 3.80 - 9.90 K/cumm Hgb 11.5(L) 13.0 - 17.5 g/dL [facility] Hct 33.5(L) 38.9 - 50.3 % [facility] Plt 112(L) 150 - 400 K/cumm [facility] MPV 12.5(H) 9.1 - 12.[address] [facility] RBC 4.10(L) 4.30 - 5.80 M/cumm [facility] MCV 81.7 81.3 - 96.[address] [facility] MCH 28.0 27.1 - 33.[address] [facility] MCHC 34.3 32.3 - 35.7 g/dL [facility] RDW CV 14.3 11.1 - 14.9 % [facility] RDW SD 42.2 35.7 - 48.[address] [facility] NRBC abs 0.00 0.00 - 0.01 K/cumm [facility] Blood 05/14/2025 8:47 PM CDT 05/14/2025 10:03 PM CDT Alphonse Sales MD LAB BLOOD ORDERABLES F inal Result Performing Organization Address [facility] Co de Phone Number [facility] [place] [address] * Phosphorus (05/14/2025 8:47 PM CDT) [facility] Phosphorus, pl 2.8 2.3 - 4.5 mg/dL Blood 05/14/2025 8:47 PM CDT 05/14/2025 10:03 PM CDT Grace Granados NP LAB BLOOD ORDERABLES Final Result Performing Organization Address [facility] de Phone Number [facility] [place] [employer] [place] [address] * Magnesium (05/14/2025 8:47 PM CDT) [facility] Magnesium 2.2 1.4 - 2.5 mg/dL Blood 05/14/2025 8:47 PM CDT 05/14/2025 10:03 PM CDT Grace Granados NP LAB BLOOD ORDERABLES Final Result Performing Organization Address [facility] Co de Phone Number [facility] [place] [address] * (ABNORMAL) Basic metabolic panel (05/14/2025 8:47 PM CDT) [facility] Sodium 143 135 - 145 mmol/L Potassium, pl 3.6 3.3 - 4.9 mmol/L [facility] Comment:Repeated and Verifie d Chloride 110 97 - 110 mmol/L [facility] CO2 23 22 - 32 mmol/L [facility] Anion gap 10 2 - 15 mmol/L [facility] BUN 33(H) 6 - 25 mg/dL [facility] Creatinine 2.34(H) 0.80 - 1.30 mg/dL [facility] Glucose 151 70 - 199 mg/dL [facility] Comment: Interpretive Data Fasting glucose >/= 126 mg/dl is diagnostic for diabetes. Fasting is defined as no caloric intake for at least 8 hours. Fasting glucose between 100 mg/dl to 125 mg/dl is diagnostic of prediabetes. In a patient with classic symptoms of hyperglycemia or hyperglycemic crisis, a random glucose >/= 200 mg/dl is diagnostic for diabetes. In the absence of unequivocal hyperglycemia, results should be confirmed by repeat testing. The classification and Diagnosis of Diabetes Diabetes Care 2021; 46: S19-S40. Current interpretive data was last revised 2022. Calcium 8.1(L) 8.5 - 10.3 mg/dL [facility] Blood 05/14/2025 8:47 PM CDT 05/14/2025 10:03 PM CDT Alphonse Sales MD LAB BLOOD ORDERABLES F inal Result Performing Organization Address City/[facility] Co de Phone Number [facility] Department [place] [employer] [place] [place] [address] * Potassium, whole blood (05/14/2025 10:40 AM CDT) Pathologist [facility] Potassium, bld 3.5 3.3 - 4.9 mmol/L Blood 05/14/2025 10:4 0 AM CDT 05/14/2025 10:48 AM CDT Narrative [facility] - 05/14/2025 10:53 AM CDT Please do not draw from IV Grace Granados NP LAB BLOOD ORDERABLES Final Result Performing Organization Address City/[facility]/ZIP Co de Phone Number [facility] Department [place] [address] * HIV 1/2 Antibody plus p24 Antigen Blood (05/14/2025 10:40 AM CDT) HIV 1/2 ab + p24 ag Nonreactive Nonreactive Comment:Nonreactive for HIV- 1 antigen and HIV-1/HIV-2 antibodies. No laboratory evidence of HIV infection. If acute HIV infection is suspected, consider testing for HIV-1 RNA. Current interpretive data was last revised on 22. Blood 05/14/2025 10:4 0 AM CDT 05/14/2025 10:55 AM CDT Polo Larose MD LAB MICROBIOLOGY - GENERAL ORDERABLES Final Result Performing Organization Address City/[facility] Co de Phone Number [facility] Department [place] [employer] [place] [place] [address] * Hepatitis panel, acute Blood (05/14/2025 10:40 AM CDT) Hep A IgM Nonreactive Nonreactive Hep B core IgM Nonreactive Nonreactive [facility] Hep C Ab Nonreactive Nonreactive [facility] Comment:Antibodies to HCV no t detected. Does NOT exclude the possibility of recent exposure to HCV. Current interpretive data was last revised on 22 HepBsAg Nonreactive Nonreactive [facility] Blood 05/14/2025 10:4 0 AM CDT 05/14/2025 10:55 AM CDT Polo Larose MD LAB MICROBIOLOGY - GENERAL ORDERABLES Final Result Performing Organization Address City/[facility]/ZIP Co de Phone Number [facility] Department [place] [address] * CT Head WO Contrast (05/14/2025 10:13 AM CDT) Anatomical Region Laterality Modality Head and Neck N/A Computed Tomogra phy 05/14/2025 10:2 4 AM CDT Impressions 05/14/2025 10:24 AM CDT No significant interval changes in large left frontal intraparenchymal hematoma with mild surrounding vasogenic edema and mass effect on the frontal horn of left lateral ventricle. Minimal extension of the hematoma into the frontal horn of left lateral ventricle is stable. Electronically signed by: Greer Strange MD [facility] 05/14/2025 10:24 AM CDT EXAMINATION: CT head without contrast HISTORY: 44 years-old Male with Neuro deficit, acute, stroke suspected. TECHNIQUE: CT of the head was performed with images acquired from skull base to vertex without intravenous contrast. COMPARISON: CT head 05/12/2025. FINDINGS: Again noted, large left frontal intraparenchymal hematoma with mild surrounding vasogenic edema and slightly extending into the frontal horn of left lateral ventricle. Mass effect and compression on the frontal horn of left lateral ventricle is again seen. Minimal 4 mm right midline shift is noted. There is no new acute intracranial hemorrhage. The friedman-white matter differentiation is otherwise normal. The visualized portions of the orbits are normal. The visualized portions of the mastoids are normal. The visualized portions of the paranasal sinuses are normal. No fractures are identified. Procedure Note Greer Strange MD PhD - 05/14/2025 EXAMINATION: CT head without contrast HISTORY: 44 years-old Male with Neuro deficit, acute, stroke suspected. TECHNIQUE: CT of the head was performed with images acquired from skull base to vertex without intravenous contrast. COMPARISON: CT head 05/12/2025. FINDINGS: Again noted, large left frontal intraparenchymal hematoma with mild surrounding vasogenic edema and slightly extending into the frontal horn of left lateral ventricle. Mass effect and compression on the frontal horn of left lateral ventricle is again seen. Minimal 4 mm right midline shift is noted. There is no new acute intracranial hemorrhage. The friedman-white matter differentiation is otherwise normal. The visualized portions of the orbits are normal. The visualized portions of the mastoids are normal. The visualized portions of the paranasal sinuses are normal. No fractures are identified. IMPRESSION: No significant interval changes in large left frontal intraparenchymal hematoma with mild surrounding vasogenic edema and mass effect on the frontal horn of left lateral ventricle. Minimal extension of the hematoma into the frontal horn of left lateral ventricle is stable. Electronically signed by: Greer Strange MD us Patricia Quigley DNP IMG CT PROCEDURES Naomy l Result * TRANSTHORACIC ECHO (TTE) COMPLETE W DOPPLER/CF W CONTRAST (05/14/2025 9:00 AM CDT) Estimated EF 70 % CONS SCIMAGE EF Mod BP 67 % CONS SCIMAGE Anatomical Region Laterality Modality Ultrasound 05/14/2025 8:09 AM CDT Narrative 05/14/2025 10:14 AM CDT [facility] [place] [address] Transthoracic Echocardiographic Report Patient Name: BRADLEY BROWNING : 1980 (44y 4m) Sex: M Study Date: 05/14/2025 08:09:02 AM Ht(Inch): 73 Wt(Lb): 214.07 BSA: 2.21 Electrical Systems Drafter: Saul Montemayor RDCS Location: [id number] Order Provider: ALPHONSE SALES Heart Rate: 103 BMI: 28.24 BP: 178 / 81 Ref Provider: AL[employer]SE SALES PROCEDURES: Echocardiographic Report: Transthoracic complete echo with strain imaging and contrast, 2D, spectral and tissue Doppler, color flow Doppler, M-mode. Contrast: Contrast Enhancement was Employed: After initial imaging due to sub- optimal quality related to co-morbidity defined by patient's body habitus, due to suboptimal image quality with inadequate visualization of at least 2 of 16 LV wall segments in any view after initial imaging. Perflutren contrast was administered using the volume necessary to obtain adequate images and patient is unable to perform valsalva. 1.1 ml Optison Administered, (1.9 ml wasted). Technically difficult study due to: Patient unable to cooperate. INDICATIONS: Stroke, follow up - CONCLUSIONS: 1. Normal left ventricular size based on volume index. Concentric LV hypertrophy. Normal left ventricular systolic function. The Ejection Fraction is visually estimated to be 70 %. Normal diastolic function. The average global longitudinal strain is abnormal. 2. Normal right ventricular size. Normal right ventricular systolic function. 3. There is no significant valvular heart disease. 4. Normal pericardium without pericardial effusion. 5. Normal aortic root. 6. IVC is normal in size. 7. Unable to determine PASP due to inadequate TR jet. ATTESTATION: I have personally reviewed and interpreted this study without fellow or resident. DISCLAIMER: The study images and the final report will be retained in the patient chart by the Echo Laboratory for the legally required time period. This chart constitutes the legal record of any testing performed. FINDINGS: Left Ventricle: Normal left ventricular size based on volume index. Concentric LV hypertrophy. Normal left ventricular systolic function. The Ejection Fraction is visually estimated to be 70 %. Normal diastolic function. The average global longitudinal strain is abnormal. The LV global strain is: -6.9 %. Right Ventricle: Normal right ventricular size. Normal right ventricular systolic function. Left Atrium: The left atrium is normal in size. Right Atrium: The right atrium is normal in size. Mitral Valve: Normal mitral valve structure. No mitral regurgitation. No stenosis present. Aortic Valve: Normal trileaflet aortic valve. No aortic regurgitation. The mean transaortic gradient is 16 mmHg. Elevated gradients across AoV due to high flow state. Tricuspid Valve: Normal tricuspid valve structure. No tricuspid regurgitation. No tricuspid valve stenosis. Pulmonic Valve: Normal pulmonic valve structure. No pulmonic regurgitation. No pulmonic valve stenosis present. Pericardium: Normal pericardium without pericardial effusion. Aorta: Normal aortic root. IVC: IVC is normal in size. PASP: Unable to determine PASP due to inadequate TR jet. MEASUREMENTS: 2D/MM Value Range Doppler Value Range LVIDd 2D 5.2 cm [ 4.2 - 5.8 ] AV Peak Jose J 2.3 m/s [ 1.0 - 1.7 ] LVIDs 2D 3.3 cm [ 2.5 - 4.0 ] AV Peak PG 21 mmHg IVSd 2D 1.8 cm [ 0.6 - 1.0 ] AV Mean PG 16 mmHg LVPWd 2D 1.6 cm [ 0.6 - 1.0 ] AV VTI 29 cm LV Thickness Ratio 1.1 LVOT Diam 2.2 cm LV FS 2D 37.08 % [ 25.00 - 43.00 ] MV E Peak Jose J 1.11 m/s [ 0.60 - 1.30 ] LV Mass 2D 417.31 g MV A Peak Jose J 0.88 m/s [ 1.00 - 1.20 ] LV Mass Index 2D 188.41 g/m2 MV E/A 1.3 ratio [ 0.8 - 1.5 ] RWT 0.62 MV Decel Bland 648 EDV Mod BP 147 ml [ 62 - 150 ] MV Decel Time 171 msec [ 104 - 258 ] LV EDV Index 66 ml/m2 Med E` Jose J 10.0 cm/sec [ 8.0 - 25.0 ] ESV Mod BP 49 ml [ 21 - 61 ] Lat E` Jose J 7.3 cm/sec [ 10.0 - 25.0 ] EF Mod BP 67 % [ 52 - 72 ] Average E/E` 13 Visually Estimated EF 70 % RV S` 19.0 cm/sec LV GLS -6.9 % [ -25.0 - -18.0 ] PV Peak Jose J 1.2 m/s [ 0.4 - 0.8 ] LA Length 4C 5.9 cm PV Peak PG 6 mmHg LA Length 2C 5.7 cm LA Volume BP 69 ml LA Volume Index 31 ml/m2 [ 16 - 34 ] RV Base Dimen 2D 4.6 cm [ 2.5 - 4.2 ] TAPSE 2.1 cm [ 1.7 - 5.0 ] RA Volume 55 ml RA Volume Index 25 ml/m2 IVC Diam 2.3 cm IVC Collapse 59.6 % AoR Diam 2D 3.6 cm [ 3.1 - 3.7 ] Ao Root Index 1.6 cm/m2 [ 1.0 - 2.0 ] Asc Ao Diam 2D 3.5 cm Asc Ao Index 1.6 cm/m2 Electronically Signed By: Meme Russell MD 05/14/2025 10:13:50 AM CDT Procedure Note Meme Russell MD - 05/14/2025 [facility] [place] [address] [place] [address] Transthoracic Echocardiographic Report Patient Name: BRADLEY BROWNING : 1980 (44y 4m) Sex: M Study Date: 05/14/2025 08:09:02 AM Ht(Inch): 73 Wt(Lb): 214.07 BSA: 2.21 Electrical Systems Drafter: Saul Montemayor [facility] Location: [id number] Order Provider:ALPHONSE SALES Heart Rate: 103 BMI: 28.24 BP: 178 / 81 Ref Provider: [employer]SE [employer]ES PROCEDURES: Echocardiographic Report: Transthoracic complete echo with strain imagingand contrast, 2D, spectral and tissue Doppler, color flow Doppler, M-mode. Contrast: Contrast Enhancement was Employed: After initial imaging due tosub- optimal quality related to co-morbidity defined by patient's body habitus, due tosuboptimal image quality with inadequate visualization of at least 2 of 16 LV wallsegments in any view after initial imaging. Perflutren contrast was administered using thevolume necessary to obtain adequate images and patient is unable to performvalsalva. 1.1 ml Optison Administered, (1.9 ml wasted). Technically difficult study due to: Patient unable to cooperate. INDICATIONS: Stroke, follow up - CONCLUSIONS: 1. Normal left ventricular size based on volume index. Concentric LVhypertrophy. Normal left ventricular systolic function. The Ejection Fraction is visuallyestimated to be 70 %. Normal diastolic function. The average global longitudinal strain isabnormal. 2. Normal right ventricular size. Normal right ventricular systolicfunction. 3. There is no significant valvular heart disease. 4. Normal pericardium without pericardial effusion. 5. Normal aortic root. 6. IVC is normal in size. 7. Unable to determine PASP due to inadequate TR jet. ATTESTATION: I have personally reviewed and interpreted this study without fellow orresident. DISCLAIMER: The study images and the final report will be retained in the patientchart by the Echo Laboratory for the legally required time period. This chart constitutesthe legal record of any testing performed. FINDINGS: Left Ventricle: Normal left ventricular size based on volume index.Concentric LV hypertrophy. Normal left ventricular systolic function. The EjectionFraction is visually estimated to be 70 %. Normal diastolic function. The average globallongitudinal strain is abnormal. The LV global strain is: -6.9 %. Right Ventricle: Normal right ventricular size. Normal right ventricularsystolic function. Left Atrium: The left atrium is normal in size. Right Atrium: The right atrium is normal in size. Mitral Valve: Normal mitral valve structure. No mitral regurgitation. Nostenosis present. Aortic Valve: Normal trileaflet aortic valve. No aortic regurgitation. Themean transaortic gradient is 16 mmHg. Elevated gradients across AoV due to highflow state. Tricuspid Valve: Normal tricuspid valve structure. No tricuspidregurgitation. No tricuspid valve stenosis. Pulmonic Valve: Normal pulmonic valve structure. No pulmonicregurgitation. No pulmonic valve stenosis present. Pericardium: Normal pericardium without pericardial effusion. Aorta: Normal aortic root. IVC: IVC is normal in size. PASP: Unable to determine PASP due to inadequate TR jet. MEASUREMENTS: 2D/MM Value Range DopplerValue Range LVIDd 2D 5.2 cm [ 4.2 - 5.8 ] AV Peak Vel2.3 m/s [ 1.0 - 1.7 ] LVIDs 2D 3.3 cm [ 2.5 - 4.0 ] AV Peak PG21 mmHg IVSd 2D 1.8 cm [ 0.6 - 1.0 ] AV Mean PG16 mmHg LVPWd 2D 1.6 cm [ 0.6 - 1.0 ] AV VTI29 cm LV Thickness Ratio 1.1 LVOT Diam2.2 cm LV FS 2D 37.08 % [ 25.00 - 43.00 ] MV E Peak Vel1.11 m/s [ 0.60 - 1.30 ] LV Mass 2D 417.31 g MV A Peak Vel0.88 m/s [ 1.00 - 1.20 ] LV Mass Index 2D 188.41 g/m2 MV E/A1.3 ratio [ 0.8 - 1.5 ] RWT 0.62 MV DecelSlope 648 EDV Mod BP 147 ml [ 62 - 150 ] MV Decel Lssx087 msec [ 104 - 258 ] LV EDV Index 66 ml/m2 Med E` Vel10.0 cm/sec [ 8.0 - 25.0 ] ESV Mod BP 49 ml [ 21 - 61 ] Lat E` Vel7.3 cm/sec [ 10.0 - 25.0 ] EF Mod BP 67 % [ 52 - 72 ] Average E/E`13 Visually Estimated EF 70 % RV S`19.0 cm/sec LV GLS -6.9 % [ -25.0 - -18.0 ] PV Peak Vel1.2 m/s [ 0.4 - 0.8 ] LA Length 4C 5.9 cm PV Peak PG6 mmHg LA Length 2C5.7 cm LA Volume BP69 ml LA Volume Index 31 ml/m2 [ 16 - 34 ] RV Base Dimen 2D 4.6 cm [ 2.5 - 4.2 ] TAPSE 2.1 cm [ 1.7 - 5.0 ] RA Mnhjsx67 ml RA Volume Index25 ml/m2 IVC Diam2.3 cm IVC Collapse 59.6 % AoR Diam 2D 3.6 cm [ 3.1 - 3.7 ] Ao Root Index 1.6 cm/m2 [ 1.0 - 2.0 ] Asc Ao Diam 2D3.5 cm Asc Ao Index1.6 cm/m2 Electronically Signed By: Meme Russell MD 05/14/2025 10:13:50 AM CDT us Alphonse Sales MD CV ECHO PROCEDURES Fin al Result * XR Chest 1 View (05/14/2025 8:40 AM CDT) Anatomical Region Laterality Modality Body, Chest N/A Digital Radiogra phy 05/14/2025 8:51 AM CDT Impressions 05/14/2025 8:51 AM CDT Interval removal of endotracheal and gastric tubes. Heart size and mediastinal contours are normal. No consolidation, pleural effusion, or pneumothorax. Electronically signed by: Carroll Corey M.D. Narrative 05/14/2025 8:51 AM CDT EXAMINATION: 1 view chest radiograph COMPARISON: 05/11/2025 Procedure Note Carroll Corey MD - 05/14/2025 EXAMINATION: 1 view chest radiograph COMPARISON: 05/11/2025 IMPRESSION: Interval removal of endotracheal and gastric tubes. Heart size and mediastinal contours are normal. No consolidation, pleural effusion, or pneumothorax. Electronically signed by: Carroll Corey M.D. us Grace Granados ADVERTISING TEACHER IMG XR PROCEDURES Final Res ult * ID ARTL CATHJ/CANNULJ MNTR/TRANSFUSION SPX PRQ (05/14/2025 7:22 AM CDT) Narrative Isaiah Trujillo MD - 05/14/2025 7:22 AM CDT Isaiah Trujillo MD 05/14/2025 1:40 PM Arterial line Date/Time: 05/14/2025 7:22 AM Performed by: Gila Allred MD Authorized by: Alphonse Sales MD [place] Protocol: Informed consent: Unable to obtain due to emergent status Patient's stated name/ matches armband: Patient unable to verbalize - armband matched to name and within medical record Allergies confirmed: yes Consent form signed, dated, timed; matches correct patient, intended procedure and site: No consent form due to emergent status Supplies, devices and special equipment are available: yes Site/side marked: yes Indications: Indications: hemodynamic monitoring Pre-procedure details: Skin preparation: 2% Chlorhexidine Preparation: Patient was prepped and draped in sterile fashion Sedation: Sedation used: no Anesthesia (see MAR for exact dosages): Anesthesia method: Local infiltration Local anesthetic: Lidocaine 1% Procedure details: Location: R radial Needle gauge: 20 G Placement technique: Ultrasound guided Ultrasound guidance used for: Pre-procedure marking and real-time guidance Sterile ultrasound techniques: Sterile gel and sterile probe covers were used Number of attempts: 1 Transducer: waveform confirmed Post-procedure details: Post-procedure: Sutured and sterile dressing applied CMS: Unable to assess Patient tolerance of procedure: Tolerated well, no immediate complications Post Procedure Debrief: All guidewires, needles, sponges or other items are accounted for: yes us Alphonse Sales MD IN CLINIC/BEDSIDE [facility] Final Result * Blood culture Blood (05/14/2025 6:49 AM CDT) Report Final Report: No growth Blood 05/14/2025 6:49 AM CDT 05/14/2025 7:31 AM CDT Narrative [facility] - 05/18/2025 12:00 PM CDT Collection->Peripheral 1. Blood cultures are incubated for 4 days on a continuously monitored blood culture system. The first report of a negative culture is issued within 24 hours of receipt of the specimen in the laboratory. 2. Positive culture results are reported as soon as they are detected. 3. The most important factor for detection of microbes in the setting of bloodstream infection is the volume of blood submitted for culture. Failure to collect an optimal blood volume can result in false negative blood cultures. 4. For pediatric patients, the recommended blood volume to collect follows a weight based strategy. See the electronic test catalog for collection instructions. 5. For positive blood cultures, a rapid molecular test may be performed for organism identification using the karina ePlex blood culture identification panel for gram positive (BCID-GP) and gram negative (BCID-GN) organisms. This nucleic acid amplification test detects microbial DNA in positive blood culture broth. This assay has been cleared by the [place] Food and Drug Administration and its performance characteristics have been verified by the [facility] Microbiology Laboratory. For questions about this culture, contact the Microbiology Laboratory at [phone]. Interpretive data was last revised on 24. us Grace Granados NP LAB MICROBIOLOGY - GENERAL ORDERABLES Final Result [facility] Department [place] [address] * Blood culture Blood (05/14/2025 6:49 AM CDT) Report Final Report: No growth Blood 05/14/2025 6:49 AM CDT 05/14/2025 7:31 AM CDT Narrative [facility] - 05/18/2025 12:00 PM CDT Collection->Peripheral 1. Blood cultures are incubated for 4 days on a continuously monitored blood culture system. The first report of a negative culture is issued within 24 hours of receipt of the specimen in the laboratory. 2. Positive culture results are reported as soon as they are detected. 3. The most important factor for detection of microbes in the setting of bloodstream infection is the volume of blood submitted for culture. Failure to collect an optimal blood volume can result in false negative blood cultures. 4. For pediatric patients, the recommended blood volume to collect follows a weight based strategy. See the electronic test catalog for collection instructions. 5. For positive blood cultures, a rapid molecular test may be performed for organism identification using the karina ePlex blood culture identification panel for gram positive (BCID-GP) and gram negative (BCID-GN) organisms. This nucleic acid amplification test detects microbial DNA in positive blood culture broth. This assay has been cleared by the [place] Food and Drug Administration and its performance characteristics have been verified by the [facility] Microbiology Laboratory. For questions about this culture, contact the Microbiology Laboratory at [phone]. Interpretive data was last revised on 24. us Grace Granados NP LAB MICROBIOLOGY - GENERAL ORDERABLES Final Result [facility] Department [place] [address] * POCT glucose (05/14/2025 6:11 AM CDT) Glucose, POC 143 70 - 199 mg/dL Blood 05/14/2025 6:11 AM CDT 05/14/2025 6:11 AM CDT us Polo Larose MD LAB POCT ORDERABLES - CRYS CE Final Result Performing Organization Address [facility] Co de Phone Number [facility] Department [place] [address] * ECG 12 lead (05/14/2025 2:29 AM CDT) Ventricular Rate EKG/Min 102 BPM [facility] Atrial Rate 102 BPM [facility] ID-Interval (MSEC) 138 ms [facility] QRS-Interval (MSEC) 88 ms [facility] QT-Interval (MSEC) 328 ms [facility] QTc 427 ms [facility] P [place] 81 degrees [facility] R [place] 71 degrees [facility] T [place] 207 degrees [facility] Diagnosis Sinus tachycardia Possible Left atrial enlargement Left ventricular hypertrophy with repolarization abnormality Abnormal ECG When compared with ECG of 12-MAY-2025 11:33, (unconfirmed) T wave inversion more evident in Inferior leads T wave inversion less evident in Lateral leads Confirmed by ETIENNE ROCHA M.D ([id number]) on 05/14/2025 10:49:23 AM [facility] 05/14/2025 2:29 AM CDT 05/14/2025 10:49 AM CDT Alphonse Sales MD ECG ORDERABLES Final Result Performing Organization Address [facility] de Phone Number [facility] * POCT glucose (05/13/2025 11:58 PM CDT) Glucose, POC 198 70 - 199 mg/dL Blood 05/13/2025 11:5 8 PM CDT 05/13/2025 11:58 PM CDT Polo Larose MD LAB POCT ORDERABLES - CRYS CE Final Result Performing Organization Address [facility] Co de Phone Number [facility] Department [place] [address] * (ABNORMAL) eGFR (05/13/2025 7:39 PM CDT) Pathologist [facility] eGFR 39(L) >=60 mL/min/1. 73 m2 Comment: Interpretive Data Reference Interval Normal >/= 90 mL/min/1.73m2 Mildly decreased* 60 - 89 mL/min/1.73m2 Mildly to moderately decreased 45 - 59 mL/min/1.73m2 Moderately to severely decreased 30 - 44 mL/min/1.73m2 Severely decreased 15 - 29 mL/min/1.73m2 Kidney Failure < 15 mL/min/1.73m2 *Relative to young adult level Estimated glomerular filtration rate is determined by the 2020 CKD-EPI equation recommended by the National Kidney Foundation (A Unifying Approach to GFR Estimation: Recommendations of the NKF-ASK Task Force on Reassessing the Inclusion of Race in Diagnosing Kidney Disease, JASN 2020). The CKD-EPI equation should not be used for patients with unstable renal function and has not been validated in children and those over 70. Current interpretive data was last reviewed 2021. Blood 05/13/2025 7:39 PM CDT 05/13/2025 7:55 PM CDT us Alphonse Sales MD LAB BLOOD ORDERABLES F inal Result [facility] Department [place] [address] * (ABNORMAL) Differential, auto (05/13/2025 7:39 PM CDT) [facility] Neutrophil abs 13.29(H) 1.50 - 6.50 K/cumm Imm gran abs 0.11(H) 0.00 - 0.10 K/cumm [facility] Lymphocyte abs 1.10 0.80 - 3.30 K/cumm [facility] Monocyte abs 1.24(H) 0.20 - 0.80 K/cumm [facility] Eosinophil abs 0.05 0.00 - 0.50 K/cumm [facility] Basophil abs 0.03 0.00 - 0.10 K/cumm [facility] Neutrophil pct 84.0 % [facility] Comment: Interpretive Data Percent cell count reference ranges are not reported, since discordance with absolute values may lead to misinterpretation of CBC data. Current Interpretive Data was last revised on 2017. Imm gran pct 0.7 % [facility] Comment: Interpretive Data Percent cell count reference ranges are not reported, since discordance with absolute values may lead to misinterpretation of CBC data. Current Interpretive Data was last revised on 2017. Lymphocyte pct 7.0 % [facility] Comment: Interpretive Data Percent cell count reference ranges are not reported, since discordance with absolute values may lead to misinterpretation of CBC data. Current Interpretive Data was last revised on 2017. Monocyte pct 7.8 % [facility] Comment: Interpretive Data Percent cell count reference ranges are not reported, since discordance with absolute values may lead to misinterpretation of CBC data. Current Interpretive Data was last revised on 2017. Eosinophil pct 0.3 % [facility] Comment: Interpretive Data Percent cell count reference ranges are not reported, since discordance with absolute values may lead to misinterpretation of CBC data. Current Interpretive Data was last revised on 2017. Basophil pct 0.2 % [facility] Comment: Interpretive Data Percent cell count reference ranges are not reported, since discordance with absolute values may lead to misinterpretation of CBC data. Current Interpretive Data was last revised on 2017. Blood 05/13/2025 7:39 PM CDT 05/13/2025 7:56 PM CDT us Alphonse Sales MD LAB BLOOD ORDERABLES F inal Result [facility] Department of Laboratories [place], [place] [id number] * (ABNORMAL) CBC with auto differential (05/13/2025 7:39 PM CDT) WBC 15.82(H) 3.80 - 9.90 K/cumm Hgb 13.4 13.0 - 17.5 g/dL [facility] Hct 37.9(L) 38.9 - 50.3 % [facility] Plt 139(L) 150 - 400 K/cumm [facility] MPV 11.9 9.1 - 12.[address] [facility] RBC 4.82 4.30 - 5.80 M/cumm [facility] MCV 78.6(L) 81.3 - 96.[address] [facility] MCH 27.8 27.1 - 33.[address] [facility] MCHC 35.4 32.3 - 35.7 g/dL [facility] RDW CV 13.9 11.1 - 14.9 % [facility] RDW SD 39.5 35.7 - 48.[address] [facility] NRBC abs 0.00 0.00 - 0.01 K/cumm [facility] Blood 05/13/2025 7:39 PM CDT 05/13/2025 7:56 PM CDT Alphonse Sales MD LAB BLOOD ORDERABLES F inal Result [facility] Department [place] [address] * Phosphorus (05/13/2025 7:39 PM CDT) [facility] Phosphorus, pl 2.6 2.3 - 4.5 mg/dL Comment:Hemolyzed; result ma y be falsely elevated Blood 05/13/2025 7:39 PM CDT 05/13/2025 7:55 PM CDT Grace Granados NP LAB BLOOD ORDERABLES Final Result [facility] [place] [address] * Magnesium (05/13/2025 7:39 PM CDT) [facility] Magnesium 2.4 1.4 - 2.5 mg/dL Blood 05/13/2025 7:39 PM CDT 05/13/2025 7:55 PM CDT us Grace Granados NP LAB BLOOD ORDERABLES Final Result [facility] Department [place] [address] * Lipid panel (05/13/2025 7:39 PM CDT) Cholesterol 136 30 - 199 mg/dL Comment: Interpretive Data Ages < or = 19 years Acceptable: <170 mg/dL Borderline high: 170-199 mg/dL High: >or= 200 mg/dL Ages > or = 20 years Desirable: <200 mg/dL Borderline high: 200-239 mg/dL High: >or= 240 mg/dL Literature References: 1. Expert Panel on Integrated Guidelines for Cardiovascular Health and Risk Reduction in Children and Adolescents. Pediatrics 2011;128:S213 2. NCEP Expert Panel. Circulation 2004;110:227 Current Interpretive Data was last revised on 2018. Triglycerides 136 <=149 mg/dL RIGOBERTO KHAN Comment: Hemolyzed; result may be falsely elevated Interpretive Data Ages < or = 9 years Acceptable: <75 mg/dL Borderline high: 75-99 mg/dL High: >or= 100 mg/dL Ages 10 to 20 years Acceptable: <90 mg/dL Borderline high: 90-129 mg/dL High: >or= 130 mg/dL Ages > or = 20 years Desirable: <150 mg/dL Borderline high: 150-199 mg/dL High: 200-499 mg/dL Very high: >or= 499 mg/dL Literature References: 1. Expert Panel on Integrated Guidelines for Cardiovascular Health and Risk Reduction in Children and Adolescents. Pediatrics 2011;128:S213 2. NCEP Expert Panel. Circulation 2004;110:227 Current Interpretive Data was last revised on 2018. HDL 41 >=40 mg/dL RIGOBERTO KHAN Comment: Interpretive Data Ages < or = 19 years Acceptable: >45 mg/dL Borderline low: 40-45 mg/dL Low: <40 mg/dL Ages > or = 20 years Desirable: >or= 60 mg/dL Low: <40 mg/dL Literature References: 1. Expert Panel on Integrated Guidelines for Cardiovascular Health and Risk Reduction in Children and Adolescents. Pediatrics 2011;128:S213 2. NCEP Expert Panel. Circulation 2004;110:227 Current Interpretive Data was last revised on 2018. LDL, calculated 71 <=129 mg/dL RIGOBERTO [facility] Comment: Interpretive Data Ages < or = 19 years Acceptable: <110 mg/dL Borderline high: 110-129 mg/dL High: >or= 130 mg/dL Ages > or = 20 years Optimal: <100 mg/dL Near optimal: 100-129 mg/dL Borderline high: 130-159 mg/dL High: >160 mg/dL Calculated using the Wiley LDL-C estimating equation. This equation was implemented on 2024. Prior to this date LDL-C was estimated using the Friedewald equation. Literature References: 1. Expert Panel on Integrated Guidelines for Cardiovascular Health and Risk Reduction in Children and Adolescents. Pediatrics 2011;128:S213 2. NCEP Expert Panel. Circulation 2004;110:227 3. Wiley Cassidy et al. JULIAN Cardiol. 2019November 30;5(5):540-548. doi: [email or web address] Current Interpretive Data was last revised on 2024. Non-HDL Cholesterol 95 mg/dL [facility] Comment: Interpretive Data Ages < or = 19 years Acceptable: <120 mg/dL Borderline high: 120-144 mg/dL High: >145 mg/dL Ages > or = 20 years When triglycerides are >200 mg/dL, Non-HDL cholesterol is a secondary target of therapy with treatment goals that are 30 mg/dL greater than the LDL cholesterol target. Literature References: 1. Expert Panel on Integrated Guidelines for Cardiovascular Health and Risk Reduction in Children and Adolescents. Pediatrics 2011;128:S213 2. NCEP Expert Panel. Circulation 2004;110:227 Current Interpretive Data was last revised on 2018. Chol/HDL ratio 3 [facility] Blood 05/13/2025 7:39 PM CDT 05/13/2025 7:55 PM CDT Grace Granados NP LAB BLOOD ORDERABLES Final Result [facility] Department [place] [address] * (ABNORMAL) Basic metabolic panel (05/13/2025 7:39 PM CDT) [facility] Sodium 137 135 - 145 mmol/L Potassium, pl See Comment 3.3 - 4.9 mmol/L [facility] Comment:Credited; Hemolyzed Specimen Chloride 102 97 - 110 mmol/L [facility] CO2 22 22 - 32 mmol/L [facility] Anion gap 13 2 - 15 mmol/L [facility] BUN 25 6 - 25 mg/dL [facility] Creatinine 2.14(H) 0.80 - 1.30 mg/dL [facility] Glucose 141 70 - 199 mg/dL [facility] Comment: Interpretive Data Fasting glucose >/= 126 mg/dl is diagnostic for diabetes. Fasting is defined as no caloric intake for at least 8 hours. Fasting glucose between 100 mg/dl to 125 mg/dl is diagnostic of prediabetes. In a patient with classic symptoms of hyperglycemia or hyperglycemic crisis, a random glucose >/= 200 mg/dl is diagnostic for diabetes. In the absence of unequivocal hyperglycemia, results should be confirmed by repeat testing. The classification and Diagnosis of Diabetes Diabetes Care 202; 46: S19-S40. Current interpretive data was last revised 2022. Calcium 8.3(L) 8.5 - 10.3 mg/dL [facility] Blood 05/13/2025 7:39 PM CDT 05/13/2025 7:55 PM CDT Alphonse Sales MD LAB BLOOD ORDERABLES F inal Result [facility] Department [place] [address] * POCT glucose (05/13/2025 5:41 PM CDT) [facility] Glucose, POC 127 70 - 199 mg/dL Blood 05/13/2025 5:41 PM CDT 05/13/2025 5:41 PM CDT Polo Larose MD LAB POCT ORDERABLES - CRYS CE Final Result Performing Organization Address City/[facility]/ZIP Co de Phone Number [facility] [place] [address] * POCT glucose (05/13/2025 12:12 PM CDT) Glucose, POC 132 70 - 199 mg/dL Blood 05/13/2025 12:1 2 PM CDT 05/13/2025 12:12 PM CDT Polo Larose MD LAB POCT ORDERABLES - CRYS CE Final Result Performing Organization Address [facility] de Phone Number [facility] [place] [address] * Renin activity (05/13/2025 10:18 AM CDT) Renin 1.2 ng/mL/H [facility] Comment: REFERENCE VALUE (Peripheral vein specimen) Na-deplete, upright: Mean: 5.9 Range: 2.9-10.8 Na-replete, upright: Mean: 1.0 Range: < or =0.6-3.0 ADDITIONAL INFORMATION Testing performed by Liquid Chromatography-Tandem Mass Spectrometry (LC-MS/MS). This test was developed and its performance characteristics determined by [facility] in a manner consistent with CLIA requirements. This test has not been cleared or approved by the U.S. Food and Drug Administration. Test Performed by: [address] [address] Payable Processor: Shon Mcelroy Ph.D.; CLIA# [id number] Blood 05/13/2025 10:1 8 AM CDT 05/13/2025 10:45 AM CDT Meghan Enriquez ADVERTISING TEACHER LAB BLOOD ORDERABLES Fi nal Result Performing Organization Address [facility] de Phone Number [facility] [place] [address] [facility] ref [facility] * Hemoglobin A1c (05/13/2025 10:18 AM CDT) Hgb A1C 5.1 4.0 - 5.6 % Estimated Average Glucose 100 mg/dL [facility] Comment: The ADA recommends reporting an estimated Average Glucose (eAG) with all Hemoglobin A1c results using the equation derived from a study of 507 normal and diabetic adults. Minority populations were underrepresented and children were not included. (Diabetes Care 2020; 43(S1): S66-S76). The eAG is not equivalent to a fasting glucose. Blood 05/13/2025 10:1 8 AM CDT 05/13/2025 10:45 AM CDT Polo Larose MD LAB BLOOD ORDERABLES Final Result Performing Organization Address [facility] de Phone Number [facility] [place] [address] * Lipid panel (05/13/2025 10:18 AM CDT) Cholesterol See Comment 30 - 199 mg/dL Comment: Credited; Hemolyzed Specimen Telephone report made to: Michael Vidal RN on 05/13/2025 11:42:00 CDT by ANTONIO . Interpretive Data Ages < or = 19 years Acceptable: <170 mg/dL Borderline high: 170-199 mg/dL High: >or= 200 mg/dL Ages > or = 20 years Desirable: <200 mg/dL Borderline high: 200-239 mg/dL High: >or= 240 mg/dL Literature References: 1. Expert Panel on Integrated Guidelines for Cardiovascular Health and Risk Reduction in Children and Adolescents. Pediatrics 2011;128:S213 2. NCEP Expert Panel. Circulation 2004;110:227 Current Interpretive Data was last revised on 2018. Triglycerides See Comment <=149 mg/dL [facility] Comment: Credited; Hemolyzed Specimen Telephone report made to: Michael Vidal RN on 05/13/2025 11:42:00 CDT by N . Interpretive Data Ages < or = 9 years Acceptable: <75 mg/dL Borderline high: 75-99 mg/dL High: >or= 100 mg/dL Ages 10 to 20 years Acceptable: <90 mg/dL Borderline high: 90-129 mg/dL High: >or= 130 mg/dL Ages > or = 20 years Desirable: <150 mg/dL Borderline high: 150-199 mg/dL High: 200-499 mg/dL Very high: >or= 499 mg/dL Literature References: 1. Expert Panel on Integrated Guidelines for Cardiovascular Health and Risk Reduction in Children and Adolescents. Pediatrics 2011;128:S213 2. NCEP Expert Panel. Circulation 2004;110:227 Current Interpretive Data was last revised on 2018. HDL See Comment >=40 [facility] Comment: Credited; Hemolyzed Specimen Telephone report made to: Michael Vidal RN on 05/13/2025 11:42:00 CDT by N . Interpretive Data Ages < or = 19 years Acceptable: >45 mg/dL Borderline low: 40-45 mg/dL Low: <40 mg/dL Ages > or = 20 years Desirable: >or= 60 mg/dL Low: <40 mg/dL Literature References: 1. Expert Panel on Integrated Guidelines for Cardiovascular Health and Risk Reduction in Children and Adolescents. Pediatrics 2011;128:S213 2. NCEP Expert Panel. Circulation 2004;110:227 Current Interpretive Data was last revised on 2018. LDL, calculated See Comment <=[address] [facility] Comment: Unable to calculate Telephone report made to: Michael Vidal RN on 05/13/2025 11:42:00 CDT by N . Interpretive Data Ages < or = 19 years Acceptable: <110 mg/dL Borderline high: 110-129 mg/dL High: >or= 130 mg/dL Ages > or = 20 years Optimal: <100 mg/dL Near optimal: 100-129 mg/dL Borderline high: 130-159 mg/dL High: >160 mg/dL Calculated using the Wiley LDL-C estimating equation. This equation was implemented on 2024. Prior to this date LDL-C was estimated using the Friedewald equation. Literature References: 1. Expert Panel on Integrated Guidelines for Cardiovascular Health and Risk Reduction in Children and Adolescents. Pediatrics 2011;128:S213 2. NCEP Expert Panel. Circulation 2004;110:227 3. Wiley Cassidy et al. JULIAN Cardiol. 2020 November 30;5(5):540-548. doi: 10.1001/[email or web address] Current Interpretive Data was last revised on 2024. Non-HDL Cholesterol See Comment RIGOBERTO HAND Comment: Unable to calculate Telephone report made to: Michael Vidal RN on 05/13/2025 11:42:00 CDT by ANTONIO . Interpretive Data Ages < or = 19 years Acceptable: <120 mg/dL Borderline high: 120-144 mg/dL High: >145 mg/dL Ages > or = 20 years When triglycerides are >200 mg/dL, Non-HDL cholesterol is a secondary target of therapy with treatment goals that are 30 mg/dL greater than the LDL cholesterol target. Literature References: 1. Expert Panel on Integrated Guidelines for Cardiovascular Health and Risk Reduction in Children and Adolescents. Pediatrics 2011;128:S213 2. NCEP Expert Panel. Circulation 2004;110:227 Current Interpretive Data was last revised on 2018. Chol/HDL ratio See Comment RIGOBERTO HAND Comment: Unable to calculate Telephone report made to: Michael Vidal RN on 05/13/2025 11:42:00 CDT by ANTONIO . Blood 05/13/2025 10:1 8 AM CDT 05/13/2025 10:45 AM CDT Meghan Enriquez NP LAB BLOOD ORDERABLES nal Result RIGOBERTO HAND [facility] Department [place] [address] * Aldosterone (05/13/2025 8:27 AM CDT) Aldosterone <4.0 <=21 ng/dL [facility] Comment: ADDITIONAL INFORMATION Reference range for patients 11 years and older is based on upright A.M. collection from subjects without sodium restrictions. This test was developed and its performance characteristics determined by [facility] in a manner consistent with CLIA requirements. This test has not been cleared or approved by the U.S. Food and Drug Administration. Test Performed by: [facility] - [facility] [address] [id number] Payable Processor: Shon Mcelroy Ph.D.; CLIA# [id number] Blood 05/13/2025 8:27 AM CDT 05/13/2025 8:49 AM CDT Polo Larose MD LAB BLOOD ORDERABLES Final Result Performing Organization Address City/[facility] Co de Phone Number RIGOBERTO [facility] Department [place] [address] [facility] ref [facility] * POCT glucose (05/13/2025 6:12 AM CDT) Glucose, POC 139 70 - 199 mg/dL Blood 05/13/2025 6:12 AM CDT 05/13/2025 6:12 AM CDT Polo Larose MD LAB POCT ORDERABLES - CRYS CE Final Result RIGOBERTO [facility] [place] [address] * POCT glucose (05/13/2025 12:17 AM CDT) Glucose, POC 136 70 - 199 mg/dL Blood 05/13/2025 12:1 7 AM CDT 05/13/2025 12:17 AM CDT Polo Larose MD LAB POCT ORDERABLES - CRYS CE Final Result Performing Organization Address [facility] Co de Phone Number [facility] [place] [address] * (ABNORMAL) Protein / creatinine ratio, urine, random (05/12/2025 11:18 PM CDT) [facility] Protein, ur, quant 77.0 mg/dL Comment: Interpretive Data No reference range established. Current interpretive data was last revised 2018. Creatinine Ur 369.8 mg/dL [facility] Comment: Interpretive Data No reference range established. Current interpretive data was last revised 2018. Protein/creatinin e ratio 208.2(H) 0.0 - 180.0 mg/g CR [facility] Urine 05/12/2025 11:1 8 PM CDT 05/12/2025 11:43 PM CDT Polo Larose MD LAB URINE ORDERABLES Final Result Performing Organization Address [facility] Co de Phone Number [facility] [place] [address] * RPR Blood (05/12/2025 11:18 PM CDT) [facility] RPR Nonreactive Nonreactive Blood 05/12/2025 11:1 8 PM CDT 05/12/2025 11:43 PM CDT Polo Larose MD LAB MICROBIOLOGY - GENERAL ORDERABLES Final Result Performing Organization Address [facility] Co de Phone Number [facility] [place] [address] * (ABNORMAL) eGFR (05/12/2025 7:45 PM CDT) [facility] eGFR 40(L) >=60 mL/min/1. 73 m2 Comment: Interpretive Data Reference Interval Normal >/= 90 mL/min/1.73m2 Mildly decreased* 60 - 89 mL/min/1.73m2 Mildly to moderately decreased 45 - 59 mL/min/1.73m2 Moderately to severely decreased 30 - 44 mL/min/1.73m2 Severely decreased 15 - 29 mL/min/1.73m2 Kidney Failure < 15 mL/min/1.73m2 *Relative to young adult level Estimated glomerular filtration rate is determined by the 2020 CKD-EPI equation recommended by the National Kidney Foundation (A Unifying Approach to GFR Estimation: Recommendations of the NKF-ASK Task Force on Reassessing the Inclusion of Race in Diagnosing Kidney Disease, JASN 2020). The CKD-EPI equation should not be used for patients with unstable renal function and has not been validated in children and those over 70. Current interpretive data was last reviewed 2021. Blood 05/12/2025 7:45 PM CDT 05/12/2025 8:13 PM CDT Grace Granados ADVERTISING TEACHER LAB BLOOD ORDERABLES Final Result [facility] Department [place] [address] * (ABNORMAL) Differential, auto (05/12/2025 7:45 PM CDT) Neutrophil abs 20.18(H) 1.50 - 6.50 K/cumm Imm gran abs 0.11(H) 0.00 - 0.10 K/cumm [facility] Lymphocyte abs 1.07 0.80 - 3.30 K/cumm [facility] Monocyte abs 0.98(H) 0.20 - 0.80 K/cumm [facility] Eosinophil abs 0.00 0.00 - 0.50 K/cumm [facility] Basophil abs 0.04 0.00 - 0.10 K/cumm [facility] Neutrophil pct 90.1 % [facility] Comment: Interpretive Data Percent cell count reference ranges are not reported, since discordance with absolute values may lead to misinterpretation of CBC data. Current Interpretive Data was last revised on 2017. Imm gran pct 0.5 % [facility] Comment: Interpretive Data Percent cell count reference ranges are not reported, since discordance with absolute values may lead to misinterpretation of CBC data. Current Interpretive Data was last revised on 2017. Lymphocyte pct 4.8 % [facility] Comment: Interpretive Data Percent cell count reference ranges are not reported, since discordance with absolute values may lead to misinterpretation of CBC data. Current Interpretive Data was last revised on 2017. Monocyte pct 4.4 % [facility] Comment: Interpretive Data Percent cell count reference ranges are not reported, since discordance with absolute values may lead to misinterpretation of CBC data. Current Interpretive Data was last revised on 2017. Eosinophil pct 0.0 % [facility] Comment: Interpretive Data Percent cell count reference ranges are not reported, since discordance with absolute values may lead to misinterpretation of CBC data. Current Interpretive Data was last revised on 2017. Basophil pct 0.2 % [facility] Comment: Interpretive Data Percent cell count reference ranges are not reported, since discordance with absolute values may lead to misinterpretation of CBC data. Current Interpretive Data was last revised on 2017. Blood 05/12/2025 7:45 PM CDT 05/12/2025 8:12 PM CDT us Alphonse Sales MD LAB BLOOD ORDERABLES F inal Result [facility] Department [place] [address] * (ABNORMAL) CBC with auto differential (05/12/2025 7:45 PM CDT) WBC 22.38(H) 3.80 - 9.90 K/cumm Hgb 14.2 13.0 - 17.5 g/dL [facility] Hct 39.6 38.9 - 50.3 % [facility] Plt 180 150 - 400 K/cumm [facility] MPV 12.3 9.1 - 12.[address] [facility] RBC 4.92 4.30 - 5.80 M/cumm [facility] MCV 80.5(L) 81.3 - 96.[address] [facility] MCH 28.9 27.1 - 33.[address] [facility] MCHC 35.9(H) 32.3 - 35.7 g/dL [facility] RDW CV 14.5 11.1 - 14.9 % [facility] RDW SD 42.0 35.7 - 48.[address] [facility] NRBC abs 0.00 0.00 - 0.01 K/cumm [facility] Blood 05/12/2025 7:45 PM CDT 05/12/2025 8:12 PM CDT us Alphonse Sales MD LAB BLOOD ORDERABLES F inal Result [facility] Department [place] [address] * (ABNORMAL) Triglycerides (05/12/2025 7:45 PM CDT) Triglycerides 657(H) <=149 mg/dL Comment: Hemolyzed; result may be falsely elevated Repeated and Verified Interpretive Data Ages < or = 9 years Acceptable: <75 mg/dL Borderline high: 75-99 mg/dL High: >or= 100 mg/dL Ages 10 to 20 years Acceptable: <90 mg/dL Borderline high: 90-129 mg/dL High: >or= 130 mg/dL Ages > or = 20 years Desirable: <150 mg/dL Borderline high: 150-199 mg/dL High: 200-499 mg/dL Very high: >or= 499 mg/dL Literature References: 1. Expert Panel on Integrated Guidelines for Cardiovascular Health and Risk Reduction in Children and Adolescents. Pediatrics 2011;128:S213 2. NCEP Expert Panel. Circulation 2004;110:227 Current Interpretive Data was last revised on 2018. Blood 05/12/2025 7:45 PM CDT 05/12/2025 8:13 PM CDT us Grace Gerald Roberta ADVERTISING TEACHER LAB BLOOD ORDERABLES Final Result Performing Organization Address [facility] Co de Phone Number [facility] [place] [address] * Phosphorus (05/12/2025 7:45 PM CDT) [facility] Phosphorus, pl 2.5 2.3 - 4.5 mg/dL Comment:Hemolyzed; result ma y be falsely elevated Blood 05/12/2025 7:45 PM CDT 05/12/2025 8:13 PM CDT Grace Granados NP LAB BLOOD ORDERABLES Final Result Performing Organization Address [facility] Co de Phone Number [facility] [place] [address] * Magnesium (05/12/2025 7:45 PM CDT) [facility] Magnesium 2.5 1.4 - 2.5 mg/dL Blood 05/12/2025 7:45 PM CDT 05/12/2025 8:13 PM CDT Grace Granados NP LAB BLOOD ORDERABLES Final Result Performing Organization Address [facility] de Phone Number [facility] Department [place] [address] * (ABNORMAL) Comprehensive metabolic panel (05/12/2025 7:45 PM CDT) [facility] Sodium 136 135 - 145 mmol/L Potassium, pl See Comment 3.3 - 4.9 mmol/L [facility] Comment:Credited; Hemolyzed Specimen Chloride 105 97 - 110 mmol/L [facility] CO2 20(L) 22 - 32 mmol/L [facility] Anion gap 11 2 - 15 mmol/L [facility] BUN 23 6 - 25 mg/dL [facility] Creatinine 2.10(H) 0.80 - 1.30 mg/dL [facility] Glucose 158 70 - 199 mg/dL [facility] Comment: Interpretive Data Fasting glucose >/= 126 mg/dl is diagnostic for diabetes. Fasting is defined as no caloric intake for at least 8 hours. Fasting glucose between 100 mg/dl to 125 mg/dl is diagnostic of prediabetes. In a patient with classic symptoms of hyperglycemia or hyperglycemic crisis, a random glucose >/= 200 mg/dl is diagnostic for diabetes. In the absence of unequivocal hyperglycemia, results should be confirmed by repeat testing. The classification and Diagnosis of Diabetes Diabetes Care 2021; 46: S19-S40. Current interpretive data was last revised 2022. Calcium 7.9(L) 8.5 - 10.3 mg/dL [facility] Bilirubin, total 0.4 0.1 - 1.2 mg/dL [facility] Protein, pl 7.1 6.5 - 8.5 g/dL [facility] Albumin 3.8 3.5 - 5.0 g/dL [facility] Alk phos 73 40 - 130 Units/L [facility] Comment:Hemolyzed; result ma y be falsely decreased ALT See Comment 7 - 55 Units/L [facility] Comment:Credited, hemolyzed specimen. AST See Comment 10 - 50 Units/L [facility] Comment:Credited, hemolyzed specimen. Blood 05/12/2025 7:45 PM CDT 05/12/2025 8:13 PM CDT Grace Granados NP LAB BLOOD ORDERABLES Final Result [facility] Department [place] [address] * POCT glucose (05/12/2025 5:48 PM CDT) [facility] Signature Glucose, POC 164 70 - 199 mg/dL Blood 05/12/2025 5:48 PM CDT 05/12/2025 5:48 PM CDT Polo Larose MD LAB POCT ORDERABLES - CRYS CE Final Result Performing Organization Address City/[facility]/[place] [address] * N. gonorrhoeae/C. trachomatis Amplification Urine (05/12/2025 4:25 PM CDT) Pathologist [facility] C. trachomatis Not Detected Not Detected [facility] N. gonorrhoeae Not Detected Not Detected [facility] Comment: Interpretive Data This assay detects Chlamydia trachomatis and Neisseria gonorrhoeae by nucleic acid amplification testing (NAAT). This assay has been cleared by the [place] Food and Drug administration. The performance characteristics of this test have been verified by the [facility] Molecular Infectious Disease laboratory. The performance characteristics of this test have not been evaluated in individuals less than 14 years of age. Current Interpretive Data last revised 2023. Urine (None) 05/12/2025 4:25 PM CDT 05/12/2025 5:10 PM CDT Polo Larose MD LAB MICROBIOLOGY - GENERAL ORDERABLES Final Result Performing Organization Address [facility] Phone Number [facility] [place] [address] [facility] * (ABNORMAL) Troponin I high-sensitivity 2-hour (05/12/2025 1:24 PM CDT) Pathologist [facility] Trop I hs 298(C) <=35 ng/L Comment: Previous critical value noted within 48 hours ago. Interpretive Data For further hscTnI resources including the diagnostic algorithm and an aid in interpretation, copy and paste this link: https://bjhlab.testcatalog.org/show/hsTrop-1 Current Interpretive Data last revised 2020. Trop I hs pct delta -4 % [facility] Trop I hs interp Insignificant [facility] Blood 05/12/2025 1:24 PM CDT 05/12/2025 1:47 PM CDT Grace Gerald Roberta ADVERTISING TEACHER LAB BLOOD ORDERABLES Final Result Performing Organization Address City/[facility]/ZIP Co de Phone Number [facility] Department [place] [address] * POCT glucose (05/12/2025 11:54 AM CDT) [facility] Glucose, POC 109 70 - 199 mg/dL Blood 05/12/2025 11:5 4 AM CDT 05/12/2025 11:54 AM CDT us Alphonse Sales MD LAB POCT ORDERABLES - DEVICE Final Result Performing Organization Address [facility] de Phone Number RIGOBERTO [facility] [place] [address] * ECG 12 lead (05/12/2025 11:33 AM CDT) [facility] Ventricular Rate EKG/Min 90 BPM [facility] Atrial Rate 90 BPM [facility] ID-Interval (MSEC) 154 ms [facility] QRS-Interval (MSEC) 94 ms [facility] QT-Interval (MSEC) 378 ms [facility] QTc 462 ms [facility] P [place] 61 degrees [facility] R [place] 26 degrees [facility] T [place] 173 degrees [facility] Diagnosis Normal sinus rhythm Left ventricular hypertrophy with repolarization abnormality Abnormal ECG When compared with ECG of 11-MAY-2025 22:43, (unconfirmed) No significant change was found Confirmed by SANTIAGO ROBLES M.D ([id number]) on 05/14/2025 4:12:50 PM [facility] 05/12/2025 11:3 3 AM CDT 05/14/2025 4:12 PM CDT us Grace Granados ADVERTISING TEACHER ECG ORDERABLES Final Resul t Performing Organization Address City/[facility]/ZIP Co de Phone Number [facility] * (ABNORMAL) Troponin I high-sensitivity series (baseline, 2hr, 4hr, 6hr) (05/12/2025 11:27 AM CDT) Trop I hs 311(C) <=35 ng/L Comment: Interpretive Data For further hscTnI resources including the diagnostic algorithm and an aid in interpretation, copy and paste this link: https://bjhlab.testcatalog.org/show/hsTrop-1 Current Interpretive Data last revised 2020. Blood 05/12/2025 11:2 7 AM CDT 05/12/2025 11:54 AM CDT us Grace Granados NP LAB BLOOD ORDERABLES Final Result Performing Organization Address City/[facility] Co de Phone Number [facility] [place] [address] * Critical result callback Cardio chemistry (05/12/2025 11:27 AM CDT) Date Notified [id number] Time Notified [address] [facility] Test name Trop I hs base [facility] Called/Read Back Vir[employer] [facility] Credentials RN [facility] Called By KG [facility] Blood 05/12/2025 11:2 7 AM CDT 05/12/2025 11:54 AM CDT us Grace Granados NP LAB BLOOD ORDERABLES Final Result Performing Organization Address [facility] Co de Phone Number [facility] Department [place] [place] [address] * Lactate (05/12/2025 6:25 AM CDT) Lactate 1.1 0.7 - 2.0 mmol/L Blood 05/12/2025 6:25 AM CDT 05/12/2025 6:50 AM CDT us Alphonse Sales MD LAB BLOOD ORDERABLES F inal Result Performing Organization Address City/[facility]/ZIP Co de Phone Number [facility] Department [place] [address] * POCT glucose (05/12/2025 6:14 AM CDT) Glucose, POC 124 70 - 199 mg/dL Blood 05/12/2025 6:14 AM CDT 05/12/2025 6:14 AM CDT us Alphonse Sales MD LAB POCT ORDERABLES - [place] [address] * Triglycerides (05/12/2025 4:40 AM CDT) Pathologist [facility] Triglycerides 113 <=149 mg/dL Comment: Interpretive Data Ages < or = 9 years Acceptable: <75 mg/dL Borderline high: 75-99 mg/dL High: >or= 100 mg/dL Ages 10 to 20 years Acceptable: <90 mg/dL Borderline high: 90-129 mg/dL High: >or= 130 mg/dL Ages > or = 20 years Desirable: <150 mg/dL Borderline high: 150-199 mg/dL High: 200-499 mg/dL Very high: >or= 499 mg/dL Literature References: 1. Expert Panel on Integrated Guidelines for Cardiovascular Health and Risk Reduction in Children and Adolescents. Pediatrics 2011;128:S213 2. NCEP Expert Panel. Circulation 2004;110:227 Current Interpretive Data was last revised on 2018. Blood 05/12/2025 4:40 AM CDT 05/12/2025 5:05 AM CDT us Yvan Urias MD LAB BLOOD ORDERAB LES Final Result [facility] [place] [address] * (ABNORMAL) Creatine kinase (CK), total (05/12/2025 4:40 AM CDT) CK 982(H) 40 - 300 Units/L Blood 05/12/2025 4:40 AM CDT 05/12/2025 5:05 AM CDT us Polo Larose MD LAB BLOOD ORDERABLES Final Result [facility] Department [place] [address] * CT Head Stealth WO Contrast (05/12/2025 4:23 AM CDT) Anatomical Region Laterality Modality Head and Neck N/A Computed Tomogra phy 05/12/2025 6:47 AM CDT Impressions 05/13/2025 10:12 AM CDT Unchanged parenchymal hematoma with 4 mm of rightward midline shift and associated mass effect on the left lateral ventricle with trace intraventricular extension. Dictated by: Reid Carpenter M.D. The radiology attending physician has personally reviewed this study, and had reviewed and/or edited this written report and agrees with it. Electronically signed by: Summer Martinez M.D., Ph.D. Narrative 05/13/2025 10:12 AM CDT EXAMINATION: CT head without contrast HISTORY: 44-year-old man, intraparenchymal hematoma TECHNIQUE: CT of the head was performed with images acquired from skull base to vertex without intravenous contrast. COMPARISON: CTA head and neck dated 05/11/2025 FINDINGS: There is no significant interval change in a large left frontoparietal intraparenchymal hematoma with associated mass effect on the left lateral ventricle. Trace intraventricular extension is noted in the frontal horn, body and trigone of the left lateral ventricle, similar to prior. 4 mm of rightward midline shift is unchanged. Ventricles are unchanged size and morphology. No mass effect or midline shift is present. The friedman-white matter differentiation is normal. The visualized portions of the orbits are normal. The visualized portions of the mastoids are normal. The visualized portions of the paranasal sinuses are normal. No fractures are identified. Procedure Note Summer Martinez MD PhD - 05/13/2025 EXAMINATION: CT head without contrast HISTORY: 44-year-old man, intraparenchymal hematoma TECHNIQUE: CT of the head was performed with images acquired from skull base to vertex without intravenous contrast. COMPARISON: CTA head and neck dated 05/11/2025 FINDINGS: There is no significant interval change in a large left frontoparietal intraparenchymal hematoma with associated mass effect on the left lateral ventricle. Trace intraventricular extension is noted in the frontal horn, body and trigone of the left lateral ventricle, similar to prior. 4 mm of rightward midline shift is unchanged. Ventricles are unchanged size and morphology. No mass effect or midline shift is present. The friedman-white matter differentiation is normal. The visualized portions of the orbits are normal. The visualized portions of the mastoids are normal. The visualized portions of the paranasal sinuses are normal. No fractures are identified. IMPRESSION: Unchanged parenchymal hematoma with 4 mm of rightward midline shift and associated mass effect on the left lateral ventricle with trace intraventricular extension. Dictated by: Reid Carpenter M.D. The radiology attending physician has personally reviewed this study, and had reviewed and/or edited this written report and agrees with it. Electronically signed by: Summer Martinez M.D., Ph.D. Alphonse Sales MD IMG CT PROCEDURES Naomy l Result * Sodium, urine, random (05/12/2025 2:18 AM CDT) Sodium, ur <20 mmol/L Comment: Interpretive Data No reference range established. Current interpretive data was last revised 2018. Urine 05/12/2025 2:18 AM CDT 05/12/2025 5:05 AM CDT Alphonse Sales MD LAB URINE ORDERABLES F inal Result [facility] Department [place] [address] * POCT glucose (05/12/2025 12:48 AM CDT) Glucose, POC 116 70 - 199 mg/dL Blood 05/12/2025 12:4 8 AM CDT 05/12/2025 12:48 AM CDT Alphonse Sales MD LAB POCT ORDERABLES - DEVICE Final Result [facility] Department [place] [address] * XR Abdomen Ap 1 Vw (05/11/2025 11:37 PM CDT) Anatomical Region Laterality Modality Body, Abdomen N/A Computed Radiogr aphy 05/12/2025 7:48 AM CDT Impressions 05/12/2025 7:48 AM CDT There is an enteric tube with tip and side port projecting over the region of the gastric body. Mild partially imaged gaseous distention of small and large bowel is noted. Electronically signed by: Franco Taylor MD Narrative 05/12/2025 7:48 AM CDT EXAMINATION: Abdomen, one view. HISTORY: Placement confirmation COMPARISON: None Procedure Note Franco Taylor MD - 05/12/2025 EXAMINATION: Abdomen, one view. HISTORY: Placement confirmation COMPARISON: None IMPRESSION: There is an enteric tube with tip and side port projecting over the region of the gastric body. Mild partially imaged gaseous distention of small and large bowel is noted. Electronically signed by: Franco Taylor MD Alphonse Sales MD IMG XR PROCEDURES Naomy l Result * XR chest 1 view (Portable) (05/11/2025 11:31 PM CDT) Anatomical Region Laterality Modality Body, Chest N/A Digital Radiogra phy 05/12/2025 8:20 AM CDT Impressions 05/12/2025 8:20 AM CDT No priors are available for comparison. Endotracheal tube terminates 3 cm magdiel. Nasogastric tube terminates below the diaphragms. Heart size is mildly enlarged. Small lung volumes with mild bibasilar atelectasis. No pleural effusion or pneumothorax. Electronically signed by: Ramiro Alcala M.D. Narrative 05/12/2025 8:20 AM CDT EXAMINATION: 1 view chest radiograph Procedure Note Ramiro Alcala MD - 05/12/2025 EXAMINATION: 1 view chest radiograph IMPRESSION: No priors are available for comparison. Endotracheal tube terminates 3 cm magdiel. Nasogastric tube terminates below the diaphragms. Heart size is mildly enlarged. Small lung volumes with mild bibasilar atelectasis. No pleural effusion or pneumothorax. Electronically signed by: Ramiro Alcala M.D. Alphonse Sales MD IMG XR PROCEDURES Naomy l Result * (ABNORMAL) Benzodiazepine Confirmation by MS (05/11/2025 11:01 PM CDT) Pathologist [facility] Alprazolam, ur Does Not Confirm CutOff 20 ng/ml Clonazepam, ur Does Not Confirm CutOff 20 ng/ml [facility] Flunitrazepam, ur Does Not Confirm CutOff 20 ng/ml [facility] Lorazepam, ur Does Not Confirm CutOff 20 ng/ml [facility] Midazolam, ur Confirmed Positive(A) CutOff 100 ng/mL [facility] Nordiazepam, ur Does Not Confirm CutOff 20 ng/ml [facility] Oxazepam, ur Does Not Confirm CutOff 20 ng/ml [facility] Temazepam, ur Does Not Confirm CutOff 20 ng/ml [facility] Comment: Interpretive Data This test is performed by liquid chromatography tandem mass spectrometry and detects both free and conjugated drug metabolites. Questions concerning interpretation should be directed to the laboratory. The results of this test are intended for clinical use. This test was developed and its performance characteristics determined by [facility]. It has not been cleared or approved by the U.S. Food and Drug Administration. Urine 05/11/2025 11:0 1 PM CDT 05/11/2025 11:21 PM CDT Alphonse Sales MD LAB URINE ORDERABLES F inal Result Performing Organization Address [facility] de Phone Number RIGOBERTO [facility] [place] [address] * (ABNORMAL) Troponin I high-sensitivity (05/11/2025 11:01 PM CDT) Trop I hs 136(H) <=35 ng/L Comment: Interpretive Data For further hscTnI resources including the diagnostic algorithm and an aid in interpretation, copy and paste this link: https://bjhlab.testcatalog.org/show/hsTrop-[email or web address] Current Interpretive Data last revised 2020. Blood 05/11/2025 11:0 1 PM CDT 05/11/2025 11:21 PM CDT [facility] Padilla Sales MD LAB BLOOD ORDERABLES F inal Result Performing Organization Address [facility] de Phone Number RIGOBERTO [facility] Department [place] [address] * (ABNORMAL) Fentanyl Confirmation, Urine (05/11/2025 11:01 PM CDT) Pathologist [facility] Fentanyl Conf, Ur Confirmed Positive(A) Cutoff 0.3ng/mL Acetylfentanyl Conf, Ur Does Not Confirm Cutoff 1 ng/mL [facility] Acrylfentanyl Conf, Ur Does Not Confirm Cutoff 1 ng/mL [facility] Furanylfentanyl Conf, Ur Does Not Confirm Cutoff 1 ng/mL [facility] Fentanyl Metabolite (Norfentanyl) Conf, Ur Confirmed Positive(A) CutOff 5 ng/mL [facility] Xylazine MS Does Not Confirm Cutoff 1 ng/mL [facility] Comment: Interpretive Data This test detects the presence or absence of drug compounds using LC Tandem mass spectrometry and is not intended to assess compliance with prescribed medications. While this test is highly specific, false positive and false negative results may occur in very rare circumstances. Contact the laboratory for consultation, if needed. Performance characteristics were determined by the [facility] in a manner consistent with CLIA requirement and has not been cleared or approved by the U.S. Food and Drug Administration. Current interpretive data was last revised 2020. Urine 05/11/2025 11:0 1 PM CDT 05/11/2025 11:21 PM CDT Alphonse Sales MD LAB URINE ORDERABLES F inal Result [facility] Department [place] [address] * (ABNORMAL) Drugs of Abuse Screen, Urine with Reflex Confirmation (05/11/2025 11:01 PM CDT) Pathologist [facility] Amphetamine, ur Not Detected CutOff 500ng/mL Comment: Interpretive Data - Amphetamines: Samples containing greater than 500 ng/mL d-methamphetamine or other cross-reacting amphetamine compounds are reported as positive. Amphetamine immunoassays are subject to significant false positive rates due to cross-reactivity of non-amphetamine drugs. Confirmatory testing required for definitive results. Current Interpretive Data was last reviewed 2023. Barbiturates, ur Not Detected CutOff 200ng/mL [facility] Comment: Interpretive Data - Barbiturates: Samples containing greater than 200 ng/mL secobarbital or other cross-reacting barbiturate compounds are reported as positive. False positive and false negative results are possible. Confirmatory testing required for definitive results. Current Interpretive Data was last reviewed 2023. Benzodiazepines, ur Screen Positive, presumptive (A) CutOff 100ng/mL [facility] Comment: Interpretive Data - Benzodiazepines: Samples containing greater than 100 ng/mL nordiazepam or other cross-reacting compounds are reported as positive. False positive and false negative results are possible. Confirmatory testing required for definitive results. Current Interpretive Data was last reviewed 2023. Cannabinoids, ur Not Detected CutOff 50 ng/mL [facility] Comment: Interpretive Data - Cannabinoids: Samples containing greater than 50 ng/mL delta-9 THC -COOH or other cross- reacting compounds are reported as positive. False positive and false negative results are possible. Confirmatory testing required for definitive results. Current Interpretive Data was last reviewed 2023. Cocaine, ur Not Detected CutOff 150ng/mL [facility] Comment: Interpretive Data - Cocaine: Samples containing greater than 150 ng/mL benzoylecgonine or other cross- reacting compounds are reported as positive. False positive and false negative results are possible. Confirmatory testing required for definitive results. Current Interpretive Data was last reviewed 2023. Fentanyl, Ur Screen Positive, presumptive (A) CutOff 5 ng/mL [facility] Comment: Interpretive Data - Fentanyl: Samples containing greater than 5 ng/mL norfentanyl, fentanyl, or other cross-reacting fentanyl compounds are reported as positive. False positive and false negative results are possible. Confirmatory testing required for definitive results. Current Interpretive Data was last reviewed 2023. Methadone, ur Not Detected CutOff 300ng/mL [facility] Comment: Interpretive Data - Methadone: Samples containing greater than 300 ng/mL d,l-methadone or other cross-reacting compounds are reported as positive. False positive and false negative results are possible. Confirmatory testing required for definitive results. Current Interpretive Data was last reviewed 2023. Opiates, ur Not Detected CutOff 300ng/mL [facility] Comment: Interpretive Data - Opiates: Samples containing greater than 300 ng/mL morphine or other cross-reacting compounds are reported as positive. False positive and false negative results are possible. Confirmatory testing required for definitive results. Current Interpretive Data was last reviewed 2023. Oxycodone, ur Not Detected CutOff 100ng/mL [facility] Comment: Interpretive Data - Oxycodone: Samples containing greater than 100 ng/mL oxycodone or other cross-reacting compounds are reported as positive. False positive and false negative results are possible. Confirmatory testing required for definitive results. Current Interpretive Data was last reviewed 2023. Phencyclidine, ur Not Detected CutOff 25 ng/mL [facility] Comment: Interpretive Data - Phencyclidine: Samples containing greater than 25 ng/mL phencyclidine or other cross-reacting compounds are reported as positive. False positive and false negative results are possible. Confirmatory testing required for definitive results. Current Interpretive Data was last reviewed 2023. Urine Creatinine 167 mg/dL [facility] Comment: Interpretive Data Urine Creatinine: < 10 mg/dL is extremely dilute = or > 10 but < 20 mg/dL is dilute = or > 20 mg/dL is normal Current Interpretive Data was last revised on 2017. Urine 05/11/2025 11:0 1 PM CDT 05/11/2025 11:21 PM CDT Narrative [facility] - 05/11/2025 11:52 PM CDT Drug Screening is performed by immunoassay for medical purposes. If positive, confirmation testing will be performed for amphetamines, benzodiazepines, cocaine, fentanyl, methadone, opiates, oxycodone, and phencyclidine. Alphonse Sales MD LAB URINE ORDERABLES F inal Result Performing Organization Address [facility] de Phone Number [facility] Department [place] [employer] [place] [place] [address] * aPTT (05/11/2025 11:01 PM CDT) aPTT 26 26 - 38 sec Comment: Interpretive Data Heparin therapeutic range: 66.0 - 100.0 seconds. Range based on correlation with therapeutic heparin activity range of 0.3 - 0.7 Units/mL. Current interpretive data was last revised on 2023. Blood 05/11/2025 11:0 1 PM CDT 05/11/2025 11:39 PM CDT Alphonse Sales MD LAB BLOOD ORDERABLES F inal Result Performing Organization Address [facility] de Phone Number [facility] [place] [place] [address] * Protime-INR (05/11/2025 11:01 PM CDT) PT 12.4 10.2 - 13.5 sec INR 1.10 0.90 - 1.[address] [facility] Comment: Interpretive data Oral anticoagulant therapeutic ranges: Venous thromboembolism prophylaxis or treatment: 2.0-3.0 CARDIOLOGY Standard range: 2.0-3.0 High-intensity range: 2.5-3.5 Refer to indication-specific guidelines for appropriate target ranges for prosthetic heart valve replacement. Current interpretive data was last revised on 2019. Blood 05/11/2025 11:0 1 PM CDT 05/11/2025 11:39 PM CDT Alphonse Sales MD LAB BLOOD ORDERABLES F inal Result Performing Organization Address [facility] de Phone Number [facility] Department [place] [address] * (ABNORMAL) Blood gas, arterial (05/11/2025 11:01 PM CDT) pH, Art 7.38 7.35 - 7.45 PCO2, Arterial 38 35 - [address] [facility] PO2, Arterial 126(H) 83 - [address] [facility] HCO3 Art (Calculated) 22 20 - 30 mmol/L [facility] BE, art -2 mmol/L [facility] Comment: Interpretive Data No Reference Range Established Current Interpretive Data was last revised on 2017 O2 Sat Art (Measured) 99(H) 90 - 95 % [facility] Blood 05/11/2025 11:0 1 PM CDT 05/11/2025 11:15 PM CDT Alphonse Sales MD LAB BLOOD ORDERABLES F inal Result Performing Organization Address [facility] de Phone Number [facility] Department [place] [address] * (ABNORMAL) eGFR (05/11/2025 10:56 PM CDT) eGFR 25(L) >=60 mL/min/1. 73 m2 Comment: Interpretive Data Reference Interval Normal >/= 90 mL/min/1.73m2 Mildly decreased* 60 - 89 mL/min/1.73m2 Mildly to moderately decreased 45 - 59 mL/min/1.73m2 Moderately to severely decreased 30 - 44 mL/min/1.73m2 Severely decreased 15 - 29 mL/min/1.73m2 Kidney Failure < 15 mL/min/1.73m2 *Relative to young adult level Estimated glomerular filtration rate is determined by the 2020 CKD-EPI equation recommended by the National Kidney Foundation (A Unifying Approach to GFR Estimation: Recommendations of the NKF-ASK Task Force on Reassessing the Inclusion of Race in Diagnosing Kidney Disease, JASN 202). The CKD-EPI equation should not be used for patients with unstable renal function and has not been validated in children and those over 70. Current interpretive data was last reviewed 2021. Blood 05/11/2025 10:5 6 PM CDT 05/11/2025 11:21 PM CDT us Alphonse Sales MD LAB BLOOD ORDERABLES F inal Result [facility] Department [place] [address] * (ABNORMAL) Differential, auto (05/11/2025 10:56 PM CDT) Neutrophil abs 16.60(H) 1.50 - 6.50 K/cumm Imm gran abs 0.11(H) 0.00 - 0.10 K/cumm [facility] Lymphocyte abs 1.36 0.80 - 3.30 K/cumm [facility] Monocyte abs 1.45(H) 0.20 - 0.80 K/cumm [facility] Eosinophil abs 0.00 0.00 - 0.50 K/cumm [facility] Basophil abs 0.02 0.00 - 0.10 K/cumm [facility] Neutrophil pct 84.9 % [facility] Comment: Interpretive Data Percent cell count reference ranges are not reported, since discordance with absolute values may lead to misinterpretation of CBC data. Current Interpretive Data was last revised on 2017. Imm gran pct 0.6 % [facility] [facility] Comment: Interpretive Data Percent cell count reference ranges are not reported, since discordance with absolute values may lead to misinterpretation of CBC data. Current Interpretive Data was last revised on 2017. Lymphocyte pct 7.0 % [facility] Comment: Interpretive Data Percent cell count reference ranges are not reported, since discordance with absolute values may lead to misinterpretation of CBC data. Current Interpretive Data was last revised on 2017. Monocyte pct 7.4 % [facility] Comment: Interpretive Data Percent cell count reference ranges are not reported, since discordance with absolute values may lead to misinterpretation of CBC data. Current Interpretive Data was last revised on 2017. Eosinophil pct 0.0 % [facility] Comment: Interpretive Data Percent cell count reference ranges are not reported, since discordance with absolute values may lead to misinterpretation of CBC data. Current Interpretive Data was last revised on 2017. Basophil pct 0.1 % [facility] Comment: Interpretive Data Percent cell count reference ranges are not reported, since discordance with absolute values may lead to misinterpretation of CBC data. Current Interpretive Data was last revised on 2017. Blood 05/11/2025 10:5 6 PM CDT 05/11/2025 11:21 PM CDT Alphonse Sales MD LAB BLOOD ORDERABLES F inal Result Performing Organization Address City/[facility]/ZIP Co de Phone Number [facility] Department [place] [address] * Check Sample (05/11/2025 10:56 PM CDT) ABO Rh O Positive [facility] HCLL OTHER 05/11/2025 10:5 6 PM CDT 05/11/2025 11:41 PM CDT Isaiah Trujillo MD LAB BLOOD ORDERABLES Fin al Result [facility] Department [place] [address] [facility] * (ABNORMAL) Urinalysis reflex to microscopic and culture Urine (05/11/2025 10:56 PM CDT) Color, ur Yellow Yellow Clarity, ur Cloudy(A) Clear [facility] Specific gravity, ur >1.042(H) 1.003 - 1.[address] [facility] pH, urine 6.[address] [facility] Comment: Interpretive Data U rine pH is affected by diet, medications, systemic acid-base disturbances, and renal tubular function. pH may affect urinary stone formation. For example, urine pH below 6.0 may help reduce the tendency for calcium phosphate stones and pH greater than 6.0 may reduce the tendency for uric acid stone formation. Source: [facility] Current Interpretive Data was last revised on 2017 Protein, ur ql 2+(A) Negative [facility] Glucose, ur ql Negative Negative [facility] Ketones, ur Negative Negative [facility] Bilirubin, ur Negative Negative [facility] Blood, ur 3+(A) Negative [facility] Urobilinogen, ur <2.0 <2.0 mg/dL [facility] Nitrite, ur Negative Negative [facility] Leukocyte esterase, ur 3+(A) Negative [facility] UA reflex comment Reflex to microscopic UA will be performed. [facility] Urine 05/11/2025 10:5 6 PM CDT 05/11/2025 11:16 PM CDT Narrative [facility] - 05/11/2025 11:45 PM CDT For fever above 38.5 Alphonse Sales MD LAB MICROBIOLOGY - GEN ERAL ORDERABLES Final Result [facility] Department [place] [address] * (ABNORMAL) CBC with auto differential (05/11/2025 10:56 PM CDT) [facility] WBC 19.54(H) 3.80 - 9.90 K/cumm Hgb 14.5 13.0 - 17.5 g/dL [facility] Hct 41.7 38.9 - 50.3 % [facility] Plt 178 150 - 400 K/cumm [facility] MPV 12.4(H) 9.1 - 12.[address] [facility] RBC 5.23 4.30 - 5.80 M/cumm [facility] MCV 79.7(L) 81.3 - 96.[address] [facility] MCH 27.7 27.1 - 33.[address] [facility] MCHC 34.8 32.3 - 35.7 g/dL [facility] RDW CV 14.2 11.1 - 14.9 % [facility] RDW SD 40.8 35.7 - 48.[address] [facility] NRBC abs 0.00 0.00 - 0.01 K/cumm [facility] Blood 05/11/2025 10:5 6 PM CDT 05/11/2025 11:21 PM CDT Alphonse Sales MD LAB BLOOD ORDERABLES F inal Result Performing Organization Address [facility] de Phone Number [facility] [place] [address] * (ABNORMAL) Urinalysis, microscopic only (05/11/2025 10:56 PM CDT) WBC, ur >50(A) 0 - 5 /HPF RBC, ur >50(A) 0 - 2 /HPF [facility] Epithelial cells, squamous, ur 1-5 0 - 5 /HPF [facility] Bacteria, ur 3+(A) [facility] Yeast, ur 2+(A) [facility] Mucous, ur Present(A) [facility] Hyaline casts, ur 21-50(A) 0 - 10 /LPF [facility] Culture Reflex Comment Reflex to urine culture will be performed. [facility] Urine 05/11/2025 10:5 6 PM CDT 05/11/2025 11:16 PM CDT Alphonse Sales MD LAB URINE ORDERABLES F inal Result Performing Organization Address [facility] de Phone Number [facility] [place] [address] * Type and screen (05/11/2025 10:56 PM CDT) Claude, indirect Negative ABO Rh O Positive [facility] Blood 05/11/2025 10:5 6 PM CDT 05/11/2025 11:41 PM CDT Narrative [facility] - 05/12/2025 12:49 AM CDT Has the patient had Daratumumab or Isatuximab in the past 6 months?->Unknown Alphonse Sales MD LAB BLOOD BANK TEST OR DERABLES Final Result Performing Organization Address [facility] de Phone Number [facility] Department [place] [address] * Urine culture Urine (05/11/2025 10:56 PM CDT) Report Final Report: No growth Urine 05/11/2025 10:5 6 PM CDT 05/12/2025 2:00 AM CDT Narrative [facility] - 05/13/2025 8:30 AM CDT Urine culture reflexed based upon urinalysis results. Testing performed by [facility] ([phone]) Alphonse Sales MD LAB MICROBIOLOGY - GEN ERAL ORDERABLES Final Result Performing Organization Address [facility] de Phone Number [facility] Department [place] [address] * (ABNORMAL) Phosphorus (05/11/2025 10:56 PM CDT) Phosphorus, pl 4.7(H) 2.3 - 4.5 mg/dL Blood 05/11/2025 10:5 6 PM CDT 05/11/2025 11:21 PM CDT Alphonse Sales MD LAB BLOOD ORDERABLES F inal Result Performing Organization Address City/[facility] Co de Phone Number [facility] Department [place] [address] * (ABNORMAL) Magnesium (05/11/2025 10:56 PM CDT) Pathologist [facility] Magnesium 3.0(H) 1.4 - 2.5 mg/dL Blood 05/11/2025 10:5 6 PM CDT 05/11/2025 11:21 PM CDT Alphonse Sales MD LAB BLOOD ORDERABLES F inal Result Performing Organization Address City/[facility] Co de Phone Number [facility] Department [place] [address] * (ABNORMAL) Comprehensive metabolic panel (05/11/2025 10:56 PM CDT) [facility] Sodium 140 135 - 145 mmol/L Potassium, pl 3.2(L) 3.3 - 4.9 mmol/L [facility] Chloride 103 97 - 110 mmol/L [facility] CO2 23 22 - 32 mmol/L [facility] Anion gap 14 2 - 15 mmol/L [facility] BUN 26(H) 6 - 25 mg/dL [facility] Creatinine 3.04(H) 0.80 - 1.30 mg/dL [facility] Glucose 124 70 - 199 mg/dL [facility] Comment: Interpretive Data Fasting glucose >/= 126 mg/dl is diagnostic for diabetes. Fasting is defined as no caloric intake for at least 8 hours. Fasting glucose between 100 mg/dl to 125 mg/dl is diagnostic of prediabetes. In a patient with classic symptoms of hyperglycemia or hyperglycemic crisis, a random glucose >/= 200 mg/dl is diagnostic for diabetes. In the absence of unequivocal hyperglycemia, results should be confirmed by repeat testing. The classification and Diagnosis of Diabetes Diabetes Care 2021; 46: S19-S40. Current interpretive data was last revised 2022. Calcium 8.6 8.5 - 10.3 mg/dL [facility] Bilirubin, total 0.7 0.1 - 1.2 mg/dL [facility] Protein, pl 7.7 6.5 - 8.5 g/dL [facility] Albumin 4.3 3.5 - 5.0 g/dL [facility] Alk phos 82 40 - 130 Units/L [facility] ALT 28 7 - 55 Units/L [facility] AST 32 10 - 50 Units/L [facility] Blood 05/11/2025 10:5 6 PM CDT 05/11/2025 11:21 PM CDT us Alphonse Sales MD LAB BLOOD ORDERABLES F inal Result [facility] Department [place] [address] * ECG 12 lead (05/11/2025 10:43 PM CDT) Ventricular Rate EKG/Min 99 BPM [facility] Atrial Rate 99 BPM [facility] ID-Interval (MSEC) 176 ms [facility] QRS-Interval (MSEC) 92 ms [facility] QT-Interval (MSEC) 374 ms [facility] QTc 479 ms [facility] P [place] 72 degrees [facility] R [place] 40 degrees [facility] T [place] 176 degrees [facility] Diagnosis Normal sinus rhythm Possible Left atrial enlargement Left ventricular hypertrophy with repolarization abnormality Versus Anterior ST-elevation Abnormal ECG No previous ECGs available Confirmed by SANTIAGO ROBLES M.D ([id number]) on 05/22/2025 2:28:23 PM [facility] 05/11/2025 10:4 3 PM CDT 05/22/2025 2:28 PM CDT Farida Escoto ADVERTISING TEACHER ECG ORDERABLES Final Result [facility] * POCT glucose (05/11/2025 10:28 PM CDT) Glucose, POC 95 70 - 199 mg/dL Blood 05/11/2025 10:2 8 PM CDT 05/11/2025 10:28 PM CDT us Alphonse Sales MD LAB POCT ORDERABLES - DEVICE Final Result Performing Organization Address City/[facility]/ZIP Co de Phone Number [facility] [place] [address] * (ABNORMAL) Urinalysis reflex to microscopic and culture Urine (05/11/2025 9:55 PM CDT) Color, ur Yellow Yellow Clarity, ur Cloudy(A) Clear [facility] Specific gravity, ur 1.026 1.003 - 1.[address] [facility] pH, urine 6.[address] [facility] Comment: Interpretive Data U rine pH is affected by diet, medications, systemic acid-base disturbances, and renal tubular function. pH may affect urinary stone formation. For example, urine pH below 6.0 may help reduce the tendency for calcium phosphate stones and pH greater than 6.0 may reduce the tendency for uric acid stone formation. Source: [facility] Current Interpretive Data was last revised on 2017 Protein, ur ql 3+(A) Negative [facility] Glucose, ur ql Trace(A) Negative [facility] Ketones, ur Trace Negative [facility] Bilirubin, ur Negative Negative [facility] Blood, ur 2+(A) Negative [facility] Urobilinogen, ur <2.0 <2.0 mg/dL [facility] Nitrite, ur Negative Negative [facility] Leukocyte esterase, ur Negative Negative [facility] UA reflex comment Reflex to microscopic UA will be performed. [facility] Urine 05/11/2025 9:55 PM CDT 05/11/2025 10:03 PM CDT us Rodri Harris MD LAB MICROBIOLOGY - GENERAL O RDERABLES Final Result Performing Organization Address [facility] Co de Phone Number [facility] Department [place] [address] * (ABNORMAL) Urinalysis, microscopic only (05/11/2025 9:55 PM CDT) WBC, ur 11-20(A) 0 - 5 /HPF RBC, ur 6-10(A) 0 - 2 /HPF [facility] Epithelial cells, squamous, ur 1-5 0 - 5 /HPF [facility] Epithelial cells, renal, ur 1-5(A) 0 - 0 /HPF [facility] Epithelial cells, transitional, ur 1-5 0 - 0 /HPF [facility] Bacteria, ur 1+(A) [facility] Mucous, ur Present(A) [facility] Amorphous crystals, ur 1+(A) [facility] Calcium oxalate crystals, ur 3+(A) [facility] Hyaline casts, ur 21-50(A) 0 - 10 /LPF [facility] Granular casts, ur 11-20(A) 0 - 0 /LPF [facility] Culture Reflex Comment Reflex to urine culture will be performed. [facility] Urine 05/11/2025 9:55 PM CDT 05/11/2025 10:04 PM CDT us Rodri Harris MD LAB URINE ORDERABLES Final R esult [facility] [place] [address] * Urine culture Urine (05/11/2025 9:55 PM CDT) Report Final Report: No growth Urine 05/11/2025 9:55 PM CDT 05/11/2025 11:28 PM CDT Narrative [facility] - 05/13/2025 7:43 AM CDT Urine culture reflexed based upon urinalysis results. Testing performed by [facility] ([phone]) us Rodri Harris MD LAB MICROBIOLOGY - GENERAL O RDERABLES Final Result Performing Organization Address City/[facility]/ZIP Co de Phone Number [facility] [place] [address] * ID CRITICAL CARE ILL/INJURED PATIENT INIT 30-74 MIN (05/11/2025 9:00 PM CDT) Narrative Isaiah Trujillo MD - 05/11/2025 9:00 PM CDT Isaiah Trujillo MD 05/11/2025 10:38 PM Critical Care Performed by: Isaiah Trujillo MD Authorized by: Alphonse Sales MD Critical care provider statement: As reflected in the history, physical exam, orders, notes, and/or MDM, I was personally present while the patient was critically ill and provided critical care services for 75 minutes, excluding time involved in separately billable procedures. Critical care was necessary to treat or prevent imminent or life-threatening deterioration of the following condition(s): unstable vital signs acute intracranial hemorrhage Critical care was time spent by me providing the following: continuous telemetry, continuous pulse oximetry, continuous capnography, interpretation of bedside monitors, imaging, and arterial/venous lab draws, serial bedside patient exams, serial laboratory checks and arterial puncture frequent neurologic exams and initiation of stroke management initiation and active titration of vasoactive medications acute pain control and sedatives and psychotropic medications I provided emergent necessary critical care medicine services to this patient. I ordered and reviewed test results and/or imaging studies. I spent time discussing the management of this critically ill patient with consultants and the medical staff. I spent time discussing the management and therapeutic options for this critically ill patient with the patient themselves or with the appropriate designated surrogate decision-maker. I spent time documenting in the medical record. I admitted this patient to an Intensive Care unit (ICU) and discussed management with the admitting team. us Alphonse Sales MD IN CLINIC/BEDSIDE STEPHAN BERGER Final Result * CTA Head Neck W WO Contrast (05/11/2025 8:22 PM CDT) Anatomical Region Laterality Modality Head and Neck N/A Computed Tomogra phy 05/11/2025 8:42 PM CDT Impressions 05/12/2025 8:30 AM CDT 1. Evolving left frontal intraparenchymal hemorrhage , slightly increased in size compared to the prior examination, with persistent effacement of the left lateral ventricle and 4 mm rightward midline shift. 2. No acute abnormality on CT angiography of the head and neck. Specifically, no aneurysm or arteriovenous malformation identified. Dictated by: Farrukh Henry MD The radiology attending physician has personally reviewed this study, and had reviewed and/or edited this written report and agrees with it. Electronically signed by: Greer Strange MD Narrative 05/12/2025 8:30 AM CDT EXAMINATION: 1. Computed tomography angiography (CTA) of the head without and with contrast 2. Computed tomography angiography (CTA) of the neck with contrast HISTORY: Left frontal intraparenchymal hemorrhage. TECHNIQUE: CT of the head was performed with images acquired from skull base to vertex without intravenous contrast. Computed tomographic angiography was obtained from the aortic arch to the vertex following the uneventful administration of intravenous contrast. 3D images of the CTA were generated on a dedicated workstation/windows server engineer. Contrast information: 75 mL Optiray-350 IV COMPARISON: CT 05/11/2025 FINDINGS: HEAD: Evolving large left frontal intraparenchymal hemorrhage with surrounding vasogenic edema, which is slightly increased in size compared to the prior examination measuring 5.3 x 4.9 cm, previously 5.0 x 4.6 cm. There is unchanged intraventricular extension within the left lateral ventricle. Persistent mass effect and effacement of the left lateral ventricle with a similar degree of midline shift measuring up to 4 mm right to left. Unchanged medialization of the left uncus. The visualized portions of the orbits are normal. The visualized portions of the mastoids are normal. The visualized portions of the paranasal sinuses are normal. No fractures are identified. Chronic right infraorbital wall fracture. NECK: Scattered subcentimeter lymph nodes are seen in the neck. None are pathologically enlarged. The muscles of the neck are normal. Fascial planes are preserved and the deep spaces of the neck are normal. The visualized airway is widely patent. The base of the skull and the temporal bones are normal. Limited views of the brain including the cerebellum and brainstem are normal. The visualized portions of the orbits are normal. The spinal canal is normal in caliber. Intervertebral disk heights are normal. Neural foramina are normal. Limited examination of the superior thorax shows no pulmonary infiltrate, suspicious nodules, or pleural effusions. CTA: The visualized aortic arch appears normal with normal configuration of the great vessels. The innominate artery and both subclavian arteries are normal in course and caliber. The common carotid arteries are normal in course and caliber with normal carotid bifurcations bilaterally. The course and caliber of the internal carotid arteries in the neck are normal. No areas of atherosclerotic narrowing or filling defects are identified. Partially imaged nasogastric and endotracheal tube. The visualized course and caliber of the internal carotid arteries in the head are normal. No areas of atherosclerotic narrowing or filling defects are identified. The [id number] is complete. The anterior and middle cerebral arteries are normal. The vertebral arteries are codominant. The basilar artery is normal. The posterior cerebral arteries are normal. There is no aneurysm or vascular malformation identified. Procedure Note Greer Strange MD PhD - 05/12/2025 EXAMINATION: 1. Computed tomography angiography (CTA) of the head without and with contrast 2. Computed tomography angiography (CTA) of the neck with contrast HISTORY: Left frontal intraparenchymal hemorrhage. TECHNIQUE: CT of the head was performed with images acquired from skull base to vertex without intravenous contrast. Computed tomographic angiography was obtained from the aortic arch to the vertex following the uneventful administration of intravenous contrast. 3D images of the CTA were generated on a dedicated workstation/windows server engineer. Contrast information: 75 mL Optiray-350 IV COMPARISON: CT 05/11/2025 FINDINGS: HEAD: Evolving large left frontal intraparenchymal hemorrhage with surrounding vasogenic edema, which is slightly increased in size compared to the prior examination measuring 5.3 x 4.9 cm, previously 5.0 x 4.6 cm. There is unchanged intraventricular extension within the left lateral ventricle. Persistent mass effect and effacement of the left lateral ventricle with a similar degree of midline shift measuring up to 4 mm right to left. Unchanged medialization of the left uncus. The visualized portions of the orbits are normal. The visualized portions of the mastoids are normal. The visualized portions of the paranasal sinuses are normal. No fractures are identified. Chronic right infraorbital wall fracture. NECK: Scattered subcentimeter lymph nodes are seen in the neck. None are pathologically enlarged. The muscles of the neck are normal. Fascial planes are preserved and the deep spaces of the neck are normal. The visualized airway is widely patent. The base of the skull and the temporal bones are normal. Limited views of the brain including the cerebellum and brainstem are normal. The visualized portions of the orbits are normal. The spinal canal is normal in caliber. Intervertebral disk heights are normal. Neural foramina are normal. Limited examination of the superior thorax shows no pulmonary infiltrate, suspicious nodules, or pleural effusions. CTA: The visualized aortic arch appears normal with normal configuration of the great vessels. The innominate artery and both subclavian arteries are normal in course and caliber. The common carotid arteries are normal in course and caliber with normal carotid bifurcations bilaterally. The course and caliber of the internal carotid arteries in the neck are normal. No areas of atherosclerotic narrowing or filling defects are identified. Partially imaged nasogastric and endotracheal tube. The visualized course and caliber of the internal carotid arteries in the head are normal. No areas of atherosclerotic narrowing or filling defects are identified. The [id number] is complete. The anterior and middle cerebral arteries are normal. The vertebral arteries are codominant. The basilar artery is normal. The posterior cerebral arteries are normal. There is no aneurysm or vascular malformation identified. IMPRESSION: 1. Evolving left frontal intraparenchymal hemorrhage , slightly increased in size compared to the prior examination, with persistent effacement of the left lateral ventricle and 4 mm rightward midline shift. 2. No acute abnormality on CT angiography of the head and neck. Specifically, no aneurysm or arteriovenous malformation identified. Dictated by: Farrukh Henry MD The radiology attending physician has personally reviewed this study, and had reviewed and/or edited this written report and agrees with it. Electronically signed by: Greer Strange MD Gila Allred MD IM CT PROCEDURES Fin al Result * (ABNORMAL) eGFR (05/11/2025 6:26 PM CDT) eGFR 32(L) >=60 mL/min/1. 73 m2 Comment: Interpretive Data Reference Interval Normal >/= 90 mL/min/1.73m2 Mildly decreased* 60 - 89 mL/min/1.73m2 Mildly to moderately decreased 45 - 59 mL/min/1.73m2 Moderately to severely decreased 30 - 44 mL/min/1.73m2 Severely decreased 15 - 29 mL/min/1.73m2 Kidney Failure < 15 mL/min/1.73m2 *Relative to young adult level Estimated glomerular filtration rate is determined by the 2020 CKD-EPI equation recommended by the [employer] (A Unifying Approach to GFR Estimation: Recommendations of the NKF-ASK Task Force on Reassessing the Inclusion of Race in Diagnosing Kidney Disease, JASN 202). The CKD-EPI equation should not be used for patients with unstable renal function and has not been validated in children and those over 70. Current interpretive data was last reviewed 2021. Blood 05/11/2025 6:26 PM CDT 05/11/2025 6:39 PM CDT us Rodri Harris MD LAB BLOOD ORDERABLES Final R esult [facility] Department [place] [address] * (ABNORMAL) Differential, auto (05/11/2025 6:26 PM CDT) Neutrophil abs 20.30(H) 1.50 - 6.50 K/cumm Imm gran abs 0.13(H) 0.00 - 0.10 K/cumm [facility] Lymphocyte abs 0.89 0.80 - 3.30 K/cumm [facility] Monocyte abs 0.97(H) 0.20 - 0.80 K/cumm [facility] Eosinophil abs 0.00 0.00 - 0.50 K/cumm [facility] Basophil abs 0.02 0.00 - 0.10 K/cumm [facility] Neutrophil pct 91.0 % [facility] Comment: Interpretive Data Percent cell count reference ranges are not reported, since discordance with absolute values may lead to misinterpretation of CBC data. Current Interpretive Data was last revised on 2017. Imm gran pct 0.6 % [facility] Comment: Interpretive Data Percent cell count reference ranges are not reported, since discordance with absolute values may lead to misinterpretation of CBC data. Current Interpretive Data was last revised on 2017. Lymphocyte pct 4.0 % [facility] Comment: Interpretive Data Percent cell count reference ranges are not reported, since discordance with absolute values may lead to misinterpretation of CBC data. Current Interpretive Data was last revised on 2017. Monocyte pct 4.3 % [facility] Comment: Interpretive Data Percent cell count reference ranges are not reported, since discordance with absolute values may lead to misinterpretation of CBC data. Current Interpretive Data was last revised on 2017. Eosinophil pct 0.0 % [facility] Comment: Interpretive Data Percent cell count reference ranges are not reported, since discordance with absolute values may lead to misinterpretation of CBC data. Current Interpretive Data was last revised on 2017. Basophil pct 0.1 % [facility] Comment: Interpretive Data Percent cell count reference ranges are not reported, since discordance with absolute values may lead to misinterpretation of CBC data. Current Interpretive Data was last revised on 2017. Blood 05/11/2025 6:26 PM CDT 05/11/2025 6:35 PM CDT us Rodri Harris MD LAB BLOOD ORDERABLES Final R esult [facility] Department [place] [address] * (ABNORMAL) CBC with auto differential (05/11/2025 6:26 PM CDT) WBC 22.31(H) 3.80 - 9.90 K/cumm Comment:Code Blue Specimen C ode Blue Specimen Hgb 15.2 13.0 - 17.5 g/dL [facility] Hct 43.1 38.9 - 50.3 % [facility] Plt 191 150 - 400 K/cumm [facility] MPV 12.4(H) 9.1 - 12.[address] [facility] RBC 5.41 4.30 - 5.80 M/cumm [facility] MCV 79.7(L) 81.3 - 96.[address] [facility] MCH 28.1 27.1 - 33.[address] [facility] MCHC 35.3 32.3 - 35.7 g/dL [facility] RDW CV 14.1 11.1 - 14.9 % [facility] RDW SD 40.6 35.7 - 48.[address] [facility] NRBC abs 0.00 0.00 - 0.01 K/cumm [facility] Blood 05/11/2025 6:26 PM CDT 05/11/2025 6:35 PM CDT us Rodri Harris MD LAB BLOOD ORDERABLES Final R esult Performing Organization Address City/[facility]/ZIP Co de Phone Number [facility] Department [place] [address] * Type and screen (05/11/2025 6:26 PM CDT) Pathologist [facility] Claude, indirect Negative ABO Rh O Positive [facility] Blood 05/11/2025 6:26 PM CDT 05/11/2025 6:43 PM CDT Narrative [facility] - 05/11/2025 7:40 PM CDT Has the patient had Daratumumab or Isatuximab in the past 6 months?->Unknown us Rodri Harris MD LAB BLOOD BANK TEST ORDERABL ES Final Result Performing Organization Address [facility] Co de Phone Number [facility] Department [place] [address] * (ABNORMAL) Blood gas, arterial (05/11/2025 6:26 PM CDT) pH, Art 7.33(L) 7.35 - 7.45 PCO2, Arterial 46(H) 35 - [address] [facility] PO2, Arterial 62(L) 83 - [address] [facility] HCO3 Art (Calculated) 24 20 - 30 mmol/L [facility] BE, art -2 mmol/L [facility] Comment: Interpretive Data No Reference Range Established Current Interpretive Data was last revised on 2017 O2 Sat Art (Measured) 90 90 - 95 % [facility] Blood (Blood, arterial) 05/11/2025 6:26 PM CDT 05/11/2025 6:37 PM CDT us Isaiah Trujillo MD LAB BLOOD ORDERABLES Fin al Result Performing Organization Address [facility] de Phone Number [facility] Department [place] [address] * Hepatic function panel (05/11/2025 6:26 PM CDT) Bilirubin, total 0.7 0.1 - 1.2 mg/dL Comment:Code Blue Specimen Bilirubin, direct <0.2 0.1 - 0.3 mg/dL [facility] Comment: Hemolyzed; result may be falsely decreased Code Blue Specimen Protein, pl 7.9 6.5 - 8.5 g/dL [facility] Comment:Code Blue Specimen Albumin 4.4 3.5 - 5.0 g/dL [facility] Comment:Code Blue Specimen Alk phos 81 40 - 130 Units/L [facility] Comment:Code Blue Specimen ALT 28 7 - 55 Units/L [facility] Comment:Code Blue Specimen AST 39 10 - 50 Units/L [facility] Comment: Hemolyzed; result may be falsely elevated Code Blue Specimen Blood 05/11/2025 6:26 PM CDT 05/11/2025 6:39 PM CDT us Rodri Harris MD LAB BLOOD ORDERABLES Final R esult Performing Organization Address [facility] de Phone Number [facility] Department [place] [address] * (ABNORMAL) Basic metabolic panel (05/11/2025 6:26 PM CDT) Sodium 140 135 - 145 mmol/L Comment:Code Blue Specimen Potassium, pl 3.5 3.3 - 4.9 mmol/L [facility] Comment: Hemolyzed; Potassium value may be falsely elevated by as much as 0.3-0.5 mmol/L. Suggest redraw and reanalysis. Code Blue Specimen Chloride 103 97 - 110 mmol/L [facility] Comment:Code Blue Specimen CO2 23 22 - 32 mmol/L [facility] Comment:Code Blue Specimen Anion gap 14 2 - 15 mmol/L [facility] Comment:Code Blue Specimen BUN 22 6 - 25 mg/dL [facility] Comment:Code Blue Specimen Creatinine 2.48(H) 0.80 - 1.30 mg/dL [facility] Comment:Code Blue Specimen Glucose 131 70 - 199 mg/dL [facility] Comment: Code Blue Specimen Interpretive Data Fasting glucose >/= 126 mg/dl is diagnostic for diabetes. Fasting is defined as no caloric intake for at least 8 hours. Fasting glucose between 100 mg/dl to 125 mg/dl is diagnostic of prediabetes. In a patient with classic symptoms of hyperglycemia or hyperglycemic crisis, a random glucose >/= 200 mg/dl is diagnostic for diabetes. In the absence of unequivocal hyperglycemia, results should be confirmed by repeat testing. The classification and Diagnosis of Diabetes Diabetes Care 2021; 46: S19-S40. Current interpretive data was last revised 2022. Calcium 8.9 8.5 - 10.3 mg/dL [facility] Comment:Code Blue Specimen Blood 05/11/2025 6:26 PM CDT 05/11/2025 6:39 PM CDT us Rodri Harris MD LAB BLOOD ORDERABLES Final R esult [facility] Department [place] [address] * POCUS CVC (05/11/2025 6:23 PM CDT) Anatomical Region Laterality Modality Other 05/11/2025 6:12 PM CDT Narrative 05/26/2025 12:30 AM CDT Performed by: Gila Allred Vascular access : Exam Information: Exam type: Diagnostic Procedure type: Arterial line placement See procedure note in Epic: Electronically signed by Gila Allred on Wednesday, May 14, 2025 at 8:58 AM I have reviewed the images & the resident's interpretation. I agree with the findings. Images on file. Electronically signed by ISAIAH TRUJILLO on Monday, May 26, 2025 at 12:30 AM I have reviewed the images & the resident's interpretation. I agree with the findings. Images on file. Procedure Note Isaiah Trujillo MD - 05/26/2025 Performed by: Gila Allred Vascular access : Exam Information: Exam type: Diagnostic Procedure type: Arterial line placement See procedure note in Epic: Electronically signed by Gila Allred on Wednesday, May 14, 2025 at8:58 AM I have reviewed the images & the resident's interpretation. I agree withthe findings. Images on file. Electronically signed by ISAIAH TRUJILLO on Monday, May 26, 2025 at12:30 AM I have reviewed the images & the resident's interpretation. I agree withthe findings. Images on file. us Isaaih Trujillo MD POCUS ORDERABLES Final R esult * Neuro CT Outside Consult (05/11/2025 5:56 PM CDT) Anatomical Region Laterality Modality N/A Computed Tomogra phy 05/11/2025 6:05 PM CDT Impressions 05/11/2025 10:39 PM CDT Intraparenchymal hematoma in the left frontal lobe with associated mass effect including 4 mm of rightward midline shift. Small volume intraventricular extension in the left lateral ventricle. Consider CT angiography of the head to assess for underlying arteriovenous malformation. The findings, conclusions and recommendations within this report do not replace the initial findings, conclusions and recommendations made at the facility where the study was performed based upon the imaging and clinical condition at that time. Comparison with the prior report and clinical history is necessary. The provided images may or may not represent the [place] source data set and thus may contain changes that may lower the accuracy of this second-opinion interpretation. Dictated by: Reid Carpenter M.D. The radiology attending physician has personally reviewed this study, and had reviewed and/or edited this written report and agrees with it. Electronically signed by: Christo Becerra MD Narrative 05/11/2025 10:39 PM CDT EXAMINATION: RADIOLOGY CONSULTATION ON OUTSIDE IMAGING STUDY STUDY INITIALLY PERFORMED: 05/11/2025 at [facility]. TYPE OF STUDY: Multiple CT images of the head without contrast are provided at the time of this interpretation. CONTRAST ROUTE: No contrast was administered. The protocol was adequate to address the clinical question. The outside final report was not available at the time of this second opinion interpretation. TYPE OF CONSULTATION: Consult on outside imaging study with images submitted through [facility] DATE OF CONSULTATION: 05/11/2025 5:58 PM HISTORY: 44-year-old man with intraparenchymal hemorrhage COMPARISON: None available. FINDINGS: There is an intraparenchymal hematoma in the left frontal lobe measuring approximately 4.7 x 5.1 cm in the axial plane. Small volume intraventricular extension is noted in the body of the left lateral ventricle. There is approximately 0.4 cm of [id number] midline shift. Ill-defined periventricular white matter hypointensities, more pronounced on the right may be secondary to chronic small vessel ischemic disease. Hypoattenuation within the left insula likely reflects edema from the adjacent hematoma. There is medialization of the uncus on the left, without rikki herniation. The visualized portions of the orbits are normal. The visualized portions of the mastoids are normal. The visualized portions of the paranasal sinuses are normal. The nasal septum is deviated to the left. No fractures are identified. Procedure Note Christo Becerra MD - 05/11/2025 EXAMINATION: RADIOLOGY CONSULTATION ON OUTSIDE IMAGING STUDY STUDY INITIALLY PERFORMED: 05/11/2025 at [facility]. TYPE OF STUDY: Multiple CT images of the head without contrast are provided at the time of this interpretation. CONTRAST ROUTE: No contrast was administered. The protocol was adequate to address the clinical question. The outside final report was not available at the time of this second opinion interpretation. TYPE OF CONSULTATION: Consult on outside imaging study with images submitted through Outside [facility] DATE OF CONSULTATION: 05/11/2025 5:58 PM HISTORY: 44-year-old man with intraparenchymal hemorrhage COMPARISON: None available. FINDINGS: There is an intraparenchymal hematoma in the left frontal lobe measuring approximately 4.7 x 5.1 cm in the axial plane. Small volume intraventricular extension is noted in the body of the left lateral ventricle. There is approximately 0.4 cm of tnfk-[id number] midline shift. Ill-defined periventricular white matter hypointensities, more pronounced on the right may be secondary to chronic small vessel ischemic disease. Hypoattenuation within the left insula likely reflects edema from the adjacent hematoma. There is medialization of the uncus on the left, without rikki herniation. The visualized portions of the orbits are normal. The visualized portions of the mastoids are normal. The visualized portions of the paranasal sinuses are normal. The nasal septum is deviated to the left. No fractures are identified. IMPRESSION: Intraparenchymal hematoma in the left frontal lobe with associated mass effect including 4 mm of rightward midline shift. Small volume intraventricular extension in the left lateral ventricle. Consider CT angiography of the head to assess for underlying arteriovenous malformation. The findings, conclusions and recommendations within this report do not replace the initial findings, conclusions and recommendations made at the facility where the study was performed based upon the imaging and clinical condition at that time. Comparison with the prior report and clinical history is necessary. The provided images may or may not represent the [place] source data set and thus may contain changes that may lower the accuracy of this second-opinion interpretation. Dictated by: Reid Carpenter M.D. The radiology attending physician has personally reviewed this study, and had reviewed and/or edited this written report and agrees with it. Electronically signed by: Christo Becerra MD Kayode Mojica MD IMG CT PROCEDURES F inal Result from Last 3 Months Insurance [employer] O[employer] Advance Directives For more information, please contact: [phone] * Full Code (Latest Code Status on File) Date Activated Date Inactivated Comments 05/11/2025 10:42 PM 05/23/2025 7:05 PM Care Teams Phlebotomist Prn Relationship Specialty Start Date End Date Nataliia Johnson MD [address] [facility] [address] [place] [address] PCP - General Internal Medicine 06/25/25
--- OUTSIDE RECORDS SUMMARY | 2025-06-26 10:30 | XMS_ITS | Data Portability ---
Author Organization [facility], [employer] Address [address] [address] Assessment Encounter Date Assessment Date Assessment LastModified by Organization Details LastModified Time 06/21/2025 06/21/2025 New patient presented for admission to the practice. Studies ordered as below. Discussed plan with patient, who expressed understanding . Follow up as noted below. [email or web address] Not available 06/21/2025 13:30:03 Plan of Treatment Reminders Order Date Submit Date Provider Last Modified By Organization Details Last Modified Time Details Appointments ESTABLISH ED PATIENT 15 2025 11:15A Khanh Johnson MD Not available Not available Not available Lab hepatitis C virus Ab, serum 2024 025 [facility] (Lab), [address] [place] [address], [address], 06/21/2025 14:20:43 CMP, serum or plasma 2024 025 [facility] (Lab), [address] [place] [address], [address], 06/21/2025 14:20:43 CBC w/ auto diff 2024 025 [facility] (Lab), [address] [place] [address], [address], 06/21/2025 14:20:43 HbA1c (hemoglob in A1c), blood 2024 025 [facility] (Lab), [address] [place] [address], [address], 06/21/2025 14:20:43 C-peptide , serum 2024 [facility] (Lab), [facility] [address], [place], [address], 06/21/2025 14:20:43 levetirac etam, serum 2024 [facility] (Lab), [address] [facility] [address], [place], [address], 06/21/2025 14:20:[address] referral 2024 [facility], [address] [facility], [place], [address], 06/21/2025 14:15:34 neurologi alma surgeon referral 2024 [facility], [address] [facility], [place], [address], 06/21/2025 14:15:[address] referral 2024 [facility] Jamarcus Hernández MD, [address] [facility], [address], [place], [address], 06/21/2025 14:15:31 pulmonolo gist referral 2024 [facility] Magdy Tristan MD, [address] [facility], [address], [address], 06/21/2025 14:15:32 Procedures None recorded. Surgeries None recorded. Imaging None recorded. Medication Orders aspirin 81 mg tablet,de layed release 2024 [facility], [address], [place], [place], [id number], 06/21/2025 13:57:46 atorvasta tin 40 mg tablet 2024 [facility] #01373, [address], [place], [place], [id number], 06/21/2025 13:57:47 amlodipin e 10 mg tablet 2024 [facility] #11986, [address] , [place], [place], [id number], 06/21/2025 13:57:46 carvedilo l [address] [facility]67307, [address], [place], [place], [id number], 06/21/2025 13:58:08 hydralazi ne 25 mg tablet 2024 [facility] #94952, [address] , [place], [place], [id number], 06/21/2025 13:57:46 hydrochlo rothiazid e 12.5 mg tablet 2024 [facility] #22571, [address] , [place], [place], [id number], 06/21/2025 13:57:46 losartan [address] [facility] [facility] #52203, [address] , [place], [place], [id number], 06/21/2025 13:58:11 levetirac etam 750 mg tablet 2024 [facility] #82272, [address] , [place], [place], [id number], 06/21/2025 13:57:46 Patient TargetsNo targets recorded. 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 Jeffery ign hypertension Referring Physician: Nataliia Johnson, Internal Medicine, Encounter Date: 06/21/2025 Neurologist Referral for Sei zure disorder Referring Physician: Nataliia Johnson, Internal Medicine, Encounter Date: 06/21/2025 Neurological Surgeon Referra l for Intracranial hemorrhage Referring Physician: Nataliia Johnson, Internal Medicine, Encounter Date: 06/21/2025 Problems Name Problem SNOMED Code Status Onset Date Resolution Date Notes Provider Name and Address Organization Details Recorded Time Benign hypertension 52804588 Active 2024 Nataliia Johnson MD [address], [place], [address] , [facility] 13:40:36 Mixed hyperlipidemi a 095860509 Active 2024 Nataliia Johnson MD [address], [place], [address] , [facility] 13:40:39 History of cerebrovascul ar accident 595440005 Active 2024 Nataliia Johnson MD [address], [place], [address] , [facility] 13:40:42 Snoring 67301931 Active 2024 Nataliia Johnson MD [address], [place], [address] , [facility] 13:40:45 Paroxysmal hemicrania 584843626 Active 2024 MD Kathryn Oconnor[address] [place], [place], [address] , [facility] 13:40:47 Seizure disorder 260233394 Active 2024 MD Kathryn Oconnor[address], [place], [address] , [facility] 13:40:50 Body mass index 30+ - obesity 622617166 Active 2024 MD Kathryn Oconnor[address], [place], [address] , [facility] 13:40:52 Family history of diabetes mellitus 242415143 Active 2024 MD Kathryn Oconnor[address], [place], [address] , [facility] 13:41:44 Decorative tattoo 449487459 Active 2024 MD Dima Oconnor [address], [place], [address] , [facility] 13:45:38 Intracranial hemorrhage 8194241 Active 2024 MD Dima Oconnor [address], [place], [address] , [facility] 13:52:38 Problem Notes None recorded. Medical Equipment None Reported. Allergies No known drug allergies Medications Name Sig Start Date Stop Date Status Note LastModified by Organization Details LastModified Time atorvastatin 40 mg tablet Take 1 tablet every day by oral route. 2024 active Not Available Not Available Not Avai lable carvedilol 25 mg tablet Take 1 tablet twice a day by oral route. 2024 active Not Available Not Available Not Avai lable hydralazine 25 mg tablet Take 1 tablet 3 times a day by oral route. 2024 active Not Available Not Available Not Avai lable aspirin 81 mg tablet,delay ed release Take 1 tablet every day by oral route. 2024 active Not Available Not Available Not Avai lable amlodipine 10 mg tablet Take 1 tablet every day by oral route. 2024 active Not Available Not Available Not Avai lable levetiraceta m 750 mg tablet Take 1 tablet twice a day by oral route. 2024 active Not Available Not Available Not Avai lable hydrochlorot hiazide 25 mg tablet TAKE TWO TABLETS BY MOUTH DAILY active Not Available Not Available Not Available losartan 100 mg tablet Take 1 tablet every day by oral route. 2024 active Not Available Not Available Not Avai lable fluticasone propionate 50 mcg/actuatio n nasal spray,suspen deng ADMINISTER ONE SPRAY INTO EACH NOSTRIL TWICE DAILY active Not Available Not Available Not Available hydrochlorot hiazide 12.5 mg tablet Take 1 tablet every day by oral route. 2024 active Not Available Not Available Not Avai lable Vitals Date Recorded Body height Body temperature Respiratory rate Heart rate Body mass index (BMI) Body weight Systolic And Diastolic Provider Name and Address Organization Details Last Updated DateTime 172.72 cm 97.9 [degF] 16 /min 63 /min 31 kg/m2 94936.8 4 g 132/89 mm[Hg] Sridevi Denise [facility] 12:37:55 Social History Question Answer Notes LastModified by Organizat ion Details LastModified Time In The 14 Days Before Symptom Onset, Have You Had Close Contact With A Laboratory-confirmed COVID-19 While That Case Was Ill? No Information not available 06/21/2025 In The 14 Days Before Symptom Onset, Have You Had Close Contact With A Person Who Is Under Investigation For COVID-19 While That Person Was Ill? No Information not available 06/21/2025 Have You Been To An Area Known To Be High Risk For COVID-19? No Information not available 06/21/2025 Sex: Unknown Functional Status None recorded. Mental Status None recorded. Family History Relationship Description Onset Age of this Age Resolved Age Notes LastModified by Organization Details LastModified Time Father Diabetes mellitus mshenouda Not available 2024 13:42:08 Medical History No medical history recorded. Past Encounters Encounter ID Performer Location Encounter Start Date Encounter Closed Date Diagnosis/Indication Diagnosis SNOMED-CT Code Diagnosis ICD10 Code Diagnosis IMO Codes Diagnosis Note [id number] Nataliia Johnson MD [place] [facility], [facility] [address] [facility] [address] [address] 06/21/2025 11:50:00 06/21/2025 14:04:14 Adult health examination 599281707 Z00.01 7060827 Benign hypertension 1072 5009 I10 3370 - Last EKG 05/2025 Mixed hyperlipidemia 267 339413 E78.2 59017 History of cerebrovascular accident 331322323 Z86.73 335284 - 05/2025 Gonzales affected speech and memory- FMLA 4 pages done today Snoring 54490430 R06.83 69483 Seizure disorder 1592159 02 G40.909 05134 - post CVA Body mass index 30+ - obesity 564558542 Z68.31 355567 - education Long-term current use of drug therapy 040891903 Z79.357 9241802 - Statin Immunization due 1984116 08 Z23 4440335 Family his tory of diabetes mellitus 040885481 Z83.3 46760 - father Decorative tattoo 287268 003 L81.8 5884380 Intracrani al hemorrhage 5876479 I62.9 6621643 - seen neurosurge MIGUEL silva for low ASA 81 qd Health Concerns Section Related Observation LastModified by Organization Detai ls LastModified Time None Recorded Concern Status LastModified by Organization Details LastModified Time None Recorded Advance Directives Directive None Recorded Payers Insurance Date Sequence Insurance Name Policy Number Policy Sauceda Covered Member ID Sauceda Member ID Guarantor Name 06/26/2025 1 [facility] ([facility] 123 Bradley Browning [id number] Bradley Browning Notes Date Note Type Note Provider Name and Address Organization Details Recorded Time 06/21/2025 text/html Medicare Annual Wellness VisitReported by PatientSocial/Behavio ral HistoryFor diet and nutrition, patient reportshealthy diet. For fracture risk, patient reportsno history of fractures,no recent explained fracture,no sudden unexplained fractures, andno previous musculoskeletal injuries. For physical activity, patient reportsrecent increase in physical activity,good physical condition, anddiscussed exercise habits.Mental Status:For depression risk, patient reportsnever feels sad, empty, or tearful,no loss of interest in activities,no significant changes in weight,no sleep disturbances or insomnia,no agitation,no loss of energy,no feelings of worthlessness or guilt,no thoughts of suicide,no history of depression, andno history of mood disorders. For orientation, patient reportsno disorientation to time,no disorientation to date, andno disorientation to place. For concentration and memory, patient reportsno decreased concentrating ability,no memory lapses or loss, anddoes not forget words. For speech/motor difficulties, patient reportsno speech difficulties,no difficulty expressing formulated concepts,no difficulty with fine manipulative tasks,no difficulty writing/copying,no slowed reaction time, anddoes not knock things over when trying to pick them up.Functional AbilityFor hearing, patient reportsno loss of hearing. For vision, patient reportsno vision problems. For falls risk assessment, patient reportsno frequent falls while walking,no fall in the past year, andno dizziness/vertigo. For home safety, patient reportsuse of seatbeltsandno vision or hearing loss while driving. Hypertension F/UReported by PatientHPIFor medications, patient reportstaking medications as directedandno side effects from medication. For lifestyle, patient reportsregular exercise,limiting/ino iding salt, andcompliant with low salt diet. For associated symptoms, patient reportsno dizziness,no lightheadedness,no chest pain,no shortness of breath,no palpitations,no edema,no calf pain with exertion, andno headache. Nataliia Johnson MD [address], [place], [address], [facility] Medical [facility] 06/21/2025 13:58:58
--- OUTSIDE RECORDS SUMMARY | 2025-06-26 10:30 | XMS_ITS | Continuity of Care Document ---
Author Organization [place] [facility] [employer] [facility], [employer] Address [address] [place] [address] Assessment Encounter Date Assessment Date Assessment LastModified [...] Lab hepatitis C virus Ab, serum 2024 [facility] (Lab), [address] [place] [address], [address], 06/21/2025 14:20:43 CMP, serum or plasma 2024 [facility] (Lab), [address] [place] [address], [address], 06/21/2025 14:20:43 CBC w/ auto diff 2024 [facility] (Lab), [address] [place] [address], [address], 06/21/2025 14:20:43 HbA1c (hemoglob in A1c), blood 2024 025 [facility] (Lab), [address] [facility] [address], [place], [address], 06/21/2025 14:20:43 C-peptide , serum 2024 [facility] (Lab), [facility] [address], [place], [address], 06/21/2025 14:20:43 levetirac etam, serum 2024 [facility] (Lab), [facility] [address], [place], [address], 06/21/2025 14:20:[address] referral 2024 [facility], [address] [facility], [address], [place], [address], 06/21/2025 14:15:34 neurologi alma surgeon referral 2024 [facility], [address], [address], [place], [address], 06/21/2025 14:15:[address] referral 2024 [facility] Jamarcus Hernández MD, [address] [facility], [address], [place], [address], 06/21/2025 14:15:31 pulmonolo gist referral 2024 [facility] Magdy Tristan MD, [address] [facility], [address], [place], [address], 06/21/2025 14:15:32 Procedures None recorded. Surgeries None recorded. Imaging None recorded. Medication Orders aspirin 81 mg tablet,de layed release 2024 [facility] #93520, [address], [place], [place], [id number], 06/21/2025 13:57:46 atorvasta tin 40 mg tablet 2024 [facility] #27886, [address] , [place], [place], [id number], 06/21/2025 13:57:47 amlodipin e 10 mg tablet 2024 [facility] #59243, [address] , [place], [place], [id number], 06/21/2025 13:57:46 carvedilo l 25 mg tablet 2024 [facility] #75532, [address] [facility], [place], [place], [id number], 06/21/2025 13:58:08 hydralazi ne 25 mg tablet 2024 [facility] #69078, [address] [facility], [place], [place], [id number], 06/21/2025 13:57:46 hydrochlo rothiazid e 12.5 mg tablet 2024 [facility] #16104, [address] [facility], [place], [place], [id number], 06/21/2025 13:57:46 losartan 100 mg tablet 2024 [facility] #43968, [address] , [place], [place], [id number], 06/21/2025 13:58:11 levetirac etam 750 mg tablet 2024 [facility] #30207, [address] , [place], [place], [id number], 06/21/2025 13:57:46 Patient TargetsNo targets recorded. 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 for Jeffery ign hypertension Referring Physician: [...] Address Organization Details Recorded Time Benign hypertension 29976087 Active 2024 MD Dima Oconnor [address], [place], [address] , [facility] 13:40:36 Mixed hyperlipidemi a 991174019 Active 2024 MD Dima Oconnor [address], [place], [address] , [facility] 13:40:39 History of cerebrovascul ar accident 466378382 Active [address], [place], [address] , [facility] 13:40:42 Snoring 42217560 Active 2024 MD Dima Oconnor [address], [place], [address] , [facility] 13:40:45 Paroxysmal hemicrania 156327626 Active 2024 MD Dima Oconnor [address], [address] , [facility] 13:40:47 Seizure disorder 999198546 Active 2024 MD Dima Oconnor [address], [address] , [facility] 13:40:50 Body mass index 30+ - obesity 189408864 Active 2024 MD Dima Oconnor [address], [address] , [facility] 13:40:52 Family history of diabetes mellitus 754669003 Active 2024 MD Dima Oconnor [address], [address] , [facility] 13:41:44 Decorative tattoo 437367185 Active 2024 MD Dima Oconnor [address], [address] , [facility] 13:45:38 Intracranial hemorrhage 1083939 Active 2024 MD Dima Oconnor [address], [address] , [facility] 13:52:38 Problem Notes None recorded. Medical Equipment [...] [degF] 16 /min 63 /min 31 kg/m2 57613.8 4 g 132/89 mm[Hg] Sridevi Denise [facility] 12:37:55 Social History Question Answer Notes LastModified [...] ICD10 Code Diagnosis IMO Codes Diagnosis Note [id number] Nataliia Johnson MD [place] [employer] [facility], [facility] [address] [facility] [address] [address] 06/21/2025 11:50:00 06/21/2025 14:04:14 Adult health examination 347201873 Z00.01 3139495 Benign hypertension 1072 5009 I10 3370 - Last EKG 05/2025 Mixed hyperlipidemia 267 688861 E78.2 06859 History of cerebrovascular accident 893836897 Z86.73 789636 - 05/2025 Gonzales affected speech and memory- FMLA 4 pages done today Snoring 90157097 R06.83 35943 Seizure disorder 1238947 02 G40.909 81574 - post CVA Body mass index 30+ - obesity 786047740 Z68.31 681116 - education Long-term current use of drug therapy 097769583 Z79.080 6021997 - Statin Immunization due 0716544 08 Z23 4225186 Family his tory of diabetes mellitus 507406656 Z83.3 [address]54[address] - father Decorative tattoo 590494 003 L81.8 1442738 Intracrani al hemorrhage 3467198 I62.9 4178548 - seen neurosurge MIGUEL silva for low ASA 81 qd Health Concerns Section Related Observation LastModified by Organization Detai ls LastModified Time None Recorded Concern Status LastModified by Organization Details LastModified Time None Recorded Payers Encounter Date Sequence Insurance Name Policy Number Policy Sauceda Covered Member ID Sauceda Member ID Guarantor Name 06/21/2025 1 [employer] 123 Bradley Browning [id number] Bradley Browning Notes Date Note Type Note [...] with exertion, andno headache. Nataliia Johnson MD [address], [place], [address], [facility] Medical [facility] 06/21/2025 13:58:58
--- OUTSIDE RECORDS SUMMARY | 2025-06-26 10:30 | XMS_ITS | Clinical Summary ---
Author Organization [facility] Address [address] [place] [address] Care Team Providers Care Fiction Writer Name Role Phone Unavailable Primary Care Provider Unavailabl e Source Comments [facility],non-owned Affiliates and Associated Physician Practices is amultiple site organization consisting of ambulatory clinics and hospital sitesin [place], [place], [place] and [place]. This disclosure is being madepursuant to the Care Everywhere program and may not contain all information available regarding this patient. Last updated 18.[facility] Social History Tobacco Use Types Packs/Day Years Used Date Smoking Tobacco: Never Assessed Sex and Gender Information Value Date Recorded Sex Assigned at Not on file Legal Sex Male 11:22 AM CDT Gender Identity Not on file Sexual Orientation Not on file Plan of Treatment Health Maintenance Due Date Last Done Comments LIPID TESTING 1982 HIV SCREENING 1997 HEPATITIS C SCREENING 12/10/2000 DTAP/TDAP/TD VACCINES (1 - Tdap) 2001 HEPATITIS B VACCINE (1 of 3 - 19+ 3-dose series) 2001 HPV VACCINE (1 - 3-dose SCDM series) 2009 DEPRESSION SCREENING 08/02/2024 COVID-19 VACCINE (1 - 2024-2 6 season) 2025 INFLUENZA VACCINE (#1) 2025 ZOSTER VACCINE (1 of 2) 2032 HIB VACCINE Aged Out No longer eligi ble based on patient's age to complete this topic MENINGOCOCCAL (Group B) VACC INE SHARED DECISION-MAKING Aged Out No longer eligibl e based on patient's age to complete this topic MENINGOCOCCAL GROUPS A/C/Y/W VACCINE Aged Out No longer eligible b ased on patient's age to complete this topic PNEUMOCOCCAL VACCINE Aged Out No long er eligible based on patient's age to complete this topic Insurance
[2025-06-26 10:38] LABS: Hemoglobin A1C 5.8 % (<5.7)
== END 2025-06-26 09:33 | disposition home or self-care (01) ==
LOC: ANHLAB 09:37
PROVIDERS: Visit Provider Internal Medicine
DX: I10 Essential (primary) hypertension (principal); G40.909 Epilepsy, unspecified, not intractable, without status epilepticus; L81.8 Other specified disorders of pigmentation; Z79.899 Other long term (current) drug therapy; Z83.3 Family history of diabetes mellitus; L81.1 Chloasma
CPT/HCPCS: 36415; 80053; 80177; 83036; 84681; 85025; 86803